=== PATIENT | female | born 1940 | race Caucasian/White ===

== ENCOUNTER 2017-12-04 14:03 | Inpatient (IN) ==
--- NOTE | 2017-12-04 14:23 | Emergency Department Report ---
Medical Clearance HPI - General Chief complaint: Medical Clearance Stated complaint: gen eval Time Seen by Provider: 12/04/17 14:12 Source: patient, family, RN notes reviewed Mode of arrival: ambulatory Limitations: no limitations - History of Present Illness HPI Narrative: Pt presents for medical clearance for admission to [facility]. PT has had recent aggressive behavior with other CT residents. She was recently taken off her medications for Parkinsons 2/2 hallucinations. She has current complaints of a cough and runny nose but does have a history of seasonal pollen allergies. MD complaint: medical clearance requested Onset (ago): day(s) Alleged Intoxication: No Compliant with Home Medications: Yes Home medications: Home Medications Medication Instructions Recorded Confirmed Acetaminophen 650 mg PO Q4H PRN 12/04/17 12/04/17 Cetirizine [Zyrtec] 10 mg PO DAILY 12/04/17 12/04/17 Cyanocobalamin (Vitamin B-12) 2,500 mcg PO DAILY 12/04/17 12/04/17 [Vitamin B12] Fluticasone Nasal [place] [Flonase] 1 spray EA NOSTRIL DAILY 12/04/17 12/04/17 Ibuprofen 200 mg PO Q4H PRN 12/04/17 12/04/17 LORazepam [Ativan] 0.5 mg PO Q8H PRN 12/04/17 12/04/17 Loperamide HCl [Imodium A-D] 2 mg PO PRN PRN 12/04/17 12/04/17 Mag Hydrox/Aluminum Hyd/Simeth 15 ml PO Q4H PRN 12/04/17 12/04/17 [Alum-Mag Hydroxide-Simeth Liq] Milk of Magnesia [Mom] 30 ml PO DAILY PRN 12/04/17 12/04/17 Omeprazole [Prilosec] 20 mg PO DAILY 12/04/17 12/04/17 Promethazine + Cod Liq [Phenergan 5 - 10 ml PO Q4H PRN 12/04/17 12/04/17 + Codeine] Sertraline [Zoloft] 100 mg PO DAILY 12/04/17 12/04/17 guaiFENesin [Guaifenesin] 5 ml PO Q4H PRN 12/04/17 12/04/17 Allergies/Adverse reactions: Allergies Allergy/AdvReac Type Severity Reaction Status Date / Time arformoterol [From Brovana] Allergy Unknown Verified 12/04/17 14:25 venlafaxine [From Effexor] Allergy Unknown Verified 12/04/17 14:25 Review of Systems All systems: reviewed and negative except as stated Eyes: Reports: as per HPI ENT: Reports: as per HPI Respiratory: Reports: as per HPI Neurological: Reports: as per HPI Psychiatric: Reports: as per HPI [facility] Patient Stated Medical History Dementia Yes Parkinson's Disease Yes Other HEENT Yes: WEARS GLASSES Hypertension Yes Chronic Obstructive Pulmonary Yes Disease (COPD) Sleep Apnea Yes Other Respiratory Yes: ALLERGIES Gastroesophageal Reflux Yes Disease Physical Exam - Limitations Limitations: no limitations - General General appearance: alert, in no apparent distress - Normal Exams: Head:: Normocephalic without trauma Eyes:: Pupils are PERRLA w/ EOMI Neck:: Full range of motion, without adenopathy, JVD Chest/Respirations:: Clear all handley, with good airflow Cardiovascular:: Regular rate and rhythm, without murmur or gallop, Pulses 2+ all extremities, capillary refill Abdomen:: Bowel sounds positive, soft, non-tender, non-distended Musculoskeletal:: No tenderness, or deformity noted, good range of motion, all extremities Integumentary:: No rashes Neurological:: Patient is alert, and oriented, cranial nerves, motor/sensory/ cerebellar, exams w/o gross deficits, to observation Psychiatric:: Patient exhibits, appropriate attention, emotion and affect Course Vital Signs Temperature 98.4 F 12/04/17 14:05 Pulse Rate 80 12/04/17 14:05 Respiratory Rate 20 12/04/17 14:05 Blood Pressure 141/62 H 12/04/17 14:05 Pulse Oximetry 96 12/04/17 14:05 Temperature 98.0 F 12/08/17 11:19 Pulse Rate 84 12/08/17 11:19 Respiratory Rate 20 12/08/17 11:19 Blood Pressure 105/81 12/08/17 11:19 Pulse Oximetry 90 12/08/17 11:19 Medical Clearance - MDM Narrative Medical decision making narrative: Labs reviewed. [facility] notified that pt is medically appropriate for admission to their unit. [facility] staff to notify nursing when ready to transfer. - Differential Diagnosis Likely: urinary tract infection (depression, anxiety, dementia) - Lab Data Result diagrams: 12/04/17 14:33 12/04/17 14:33 Lab Results 12/04/17 12/04/17 12/04/17 Range/Units 14:23 14:33 14:33 WBC 10.8 (4.5-11.0) T/MM3 RBC 3.66 L (4.00-5.20) M/MM3 Hgb 11.5 L (12-16) GM/DL Hct 34.9 L (36-46) % MCV 95.4 (80-100) UM3 MCH 31.4 (26-34) UUG MCHC 33.0 (31-37) GM/DL RDW Std Deviation 41.1 (36.9-50.2) FL Plt Count 207 (130-400) T/MM3 MPV 8.8 L (9.4-12.4) UM3 Immature Gran % (Auto) Not performed Neut % (Auto) Not performed Lymph % (Auto) Not performed [place] % (Auto) Not performed Eos % (Auto) Not performed Baso % (Auto) Not performed Neut # (Auto) Not performed Lymph # (Auto) Not performed [place] # (Auto) Not performed Eos # (Auto) Not performed Baso # (Auto) Not performed Abs Immat Gran (auto) Not performed Neutrophils % (Manual) 70.0 H (33-66) % Lymphocytes % (Manual) 18.0 L (23-45) % Monocytes % (Manual) 6.0 (0-9.0) % Eosinophils % (Manual) 6.0 H (0-4) % Neutrophils # (Manual) 7.6 (1.8-7.7) T/MM3 Lymphocytes # (Manual) 1.9 (1-4.8) T/MM3 Monocytes # (Manual) 0.6 (0-0.8) T/MM3 Eosinophils # (Manual) 0.6 H (0-0.5) T/MM3 RBC Morph Comment Normal Turbidity < 20 (0-20) Sodium 141 (134-144) MEQ/L Potassium 4.0 (3.6-5) MEQ/L Chloride 104 (98-107) MEQ/L Carbon Dioxide 26 (22-30) MEQ/L Anion Gap 11 (5-15) MEQ/L BUN 10.0 (7-17) MG/DL Creatinine 0.8 (0.7-1.2) mg/dL GFR Calculation 70 BUN/Creatinine Ratio 13 (6-26) RATIO Glucose 111 H (65-110) MG/DL Calculated Osmolality 271 (261-280) MOSM/KG Calcium 9.1 (8.4-10.2) MG/DL Total Bilirubin 0.60 (0.20-1.30) MG/DL Icterus Index < 2 (0-7) AST 18 (14-36) U/L ALT 12 (1-35) U/L Alkaline Phosphatase 57 (38-126) U/L Total Protein 7.0 (6.3-8.2) g/dL Albumin 4.1 (3.5-5.0) g/dL Globulin 2.9 (2.4-3.6) G/DL Albumin/Globulin Ratio 1.4 (1.1-2.2) RATIO Vitamin B12 > 1000 H (239-931) pg/mL Folate 8.0 (2.76-20) ng/mL TSH (0.47-4.68) MIU/L Specimen Hemolysis < 15 (0-25) Ur Collection Type Urine Color (YELLOW) Urine Clarity Urine pH (5.0-8.0) Ur Specific [place] (1.015-1.025) Urine Protein (NEGATIVE) Urine Glucose (UA) (NEGATIVE) Urine Ketones (NEGATIVE) Urine Occult Blood (NEGATIVE) Urine Nitrate (NEGATIVE) Urine Bilirubin (NEGATIVE) Urine Urobilinogen (NORMAL) EU/DL Ur Leukocyte Esterase (NEGATIVE) Urine RBC (0-3) /HPF Urine WBC (0-5) /HPF Ur Squamous Epith Cells Urine Bacteria (NEGATIVE) Ur Culture Indicated? 12/04/17 12/04/17 Range/Units 14:33 14:48 WBC (4.5-11.0) T/MM3 RBC (4.00-5.20) M/MM3 Hgb (12-16) GM/DL Hct (36-46) % MCV (80-100) UM3 MCH (26-34) UUG MCHC (31-37) GM/DL RDW Std Deviation (36.9-50.2) FL Plt Count (130-400) T/MM3 MPV (9.4-12.4) UM3 Immature Gran % (Auto) Neut % (Auto) Lymph % (Auto) [place] % (Auto) Eos % (Auto) Baso % (Auto) Neut # (Auto) Lymph # (Auto) [place] # (Auto) Eos # (Auto) Baso # (Auto) Abs Immat Gran (auto) Neutrophils % (Manual) (33-66) % Lymphocytes % (Manual) (23-45) % Monocytes % (Manual) (0-9.0) % Eosinophils % (Manual) (0-4) % Neutrophils # (Manual) (1.8-7.7) T/MM3 Lymphocytes # (Manual) (1-4.8) T/MM3 Monocytes # (Manual) (0-0.8) T/MM3 Eosinophils # (Manual) (0-0.5) T/MM3 RBC Morph Comment Turbidity (0-20) Sodium (134-144) MEQ/L Potassium (3.6-5) MEQ/L Chloride (98-107) MEQ/L Carbon Dioxide (22-30) MEQ/L Anion Gap (5-15) MEQ/L BUN (7-17) MG/DL Creatinine (0.7-1.2) mg/dL GFR Calculation BUN/Creatinine Ratio (6-26) RATIO Glucose (65-110) MG/DL Calculated Osmolality (261-280) MOSM/KG Calcium (8.4-10.2) MG/DL Total Bilirubin (0.20-1.30) MG/DL Icterus Index (0-7) AST (14-36) U/L ALT (1-35) U/L Alkaline Phosphatase (38-126) U/L Total Protein (6.3-8.2) g/dL Albumin (3.5-5.0) g/dL Globulin (2.4-3.6) G/DL Albumin/Globulin Ratio (1.1-2.2) RATIO Vitamin B12 (239-931) pg/mL Folate (2.76-20) ng/mL TSH 1.14 (0.47-4.68) MIU/L Specimen Hemolysis (0-25) Ur Collection Type Urine, cath straight Urine Color Yellow (YELLOW) Urine Clarity Clear Urine pH 6.0 (5.0-8.0) Ur Specific [place] 1.010 L (1.015-1.025) Urine Protein Negative (NEGATIVE) Urine Glucose (UA) Negative (NEGATIVE) Urine Ketones Negative (NEGATIVE) Urine Occult Blood Negative (NEGATIVE) Urine Nitrate Negative (NEGATIVE) Urine Bilirubin Negative (NEGATIVE) Urine Urobilinogen 0.2 (NORMAL) EU/DL Ur Leukocyte Esterase 1+ A (NEGATIVE) Urine RBC 0-1 (0-3) /HPF Urine WBC 1-3 (0-5) /HPF Ur Squamous Epith Cells 0-5 Urine Bacteria None seen (NEGATIVE) Ur Culture Indicated? Cult not indicated Disposition Clinical Impression: Dementia Qualifiers: Alzheimer's disease onset: unspecified onset Dementia behavioral disturbance: with behavioral disturbance Seasonal allergic reaction Qualifiers: Allergic rhinitis trigger: unspecified Qualified Code(s): J30.2 - Other seasonal allergic rhinitis Disposition: 65 To [facility] [place] [facility] Condition: Stable Time of Disposition: 15:35 - Seen By: [facility]
--- OUTSIDE RECORDS SUMMARY | 2017-12-04 14:27 | External Medical Summary | Summary of Care ---
:1940 Author Name Cole Sprague M.D. Address Unavailable Unavailable , Care Team Providers Name Role Phone Celestine Givens, Cole Thapa Unavailable Unavailable HumbleCarin chen Unavailable Unavailable Carlos Jackson M.D. Unavailable Unavailable Carlos Jackson Unavailable Unavailable Unavailable Unavailable Unavailable Functional Status Functional Status Health Issues Name Dates Details Functional status health issues are not documented Status: Cognitive Status Health Issues Name Dates Details Cognitive status health issues are not documented Status: Problems Name Dates Details Sleep apnea (780.57, G47.30) Status: Active Vitamin D deficiency (268.9, E55.9) Status: Active Hyperlipidemia (272.4, E78.5) Status: Active Osteopenia (733.90, M85.80) Status: Active History of Memory loss (780.93, R41.3) Status: Resolved Hypercholesterolemia (272.0, E78.00) Status: Active Anxiety (300.00, F41.9) Status: Active Pseudophakia of left eye (V43.1, Z96.1) Status: Active Pseudophakia of right eye (V43.1, Z96.1) Status: Active Allergic rhinitis (477.9, J30.9) Status: Active Chronic obstructive pulmonary disease (496, J44.9) Status: Active Parkinson's disease (332.0, G20) Status: Active Vitamin B 12 deficiency (266.2, E53.8) Status: Active Impaired fasting glucose (790.21, R73.01) Status: Active Depression (311, F32.9) Status: Active Asthma (493.90, J45.909) Status: Active Chronic kidney disease (CKD), stage 3 (moderate) (585.3, N18.3) Status: Active Hypertension (401.9, I10) Status: Active Gastroesophageal reflux disease (530.81, K21.9) Status: Active Essential and other specified forms of tremor (333.1, G25.0) Status: Active Medications Name Dates Details Sertraline HCl - 100 MG Oral Tablet take 1 tablet by mouth every day Quantity: 30 Refills: 0 Carlos Jackson M.D. Start 15-Jul-2016 Active Fluticasone Propionate 50 MCG/ACT Nasal Suspension SQUIRT 2 SPRAYS IN EACH NOSTRIL ONCE DAILY Quantity: 16 Refills: 11 Cole Sprague M.D. Start 12-Sep-2009 Active Voltaren 1 % Transdermal Gel APPLY DIRECTED TO AFFECTED AREA THREE TIMES A DAY NEEDED Quantity: 100 Refills: 0 Carlos Jackson M.D. Start Active Fluticasone Propionate 50 MCG/ACT Nasal Suspension USE 1 TO 2 SPRAYS IN EACH NOSTRIL ONCE DAILY. Refills: 0 Carlos Jackson M.D. Start 16-Jun-2015 Active Cyanocobalamin 1000 MCG/ML Injection Solution INJECT 1 ML INTRAMUSCULARLY ONCE A MONTH Refills: 0 Carlos Jackson M.D. Start 23-Aug-2015 Active Mupirocin 2 % External Ointment APPLY A SMALL AMOUNT 3 TIMES DAILY DIRECTED. Quantity: 1 Refills: 0 Carin Hawk Start 13-Sep-2015 Active 22 GM Tube Cetirizine HCl - 10 MG Oral Tablet Refills: 0 Start 02-Feb-2016 Active Promethazine-Codeine 6.25-10 MG/5ML Oral Syrup TAKE 1 OR 2 TEASPOONFUL(S) BY MOUTH EVERY 4 TO 6 HOURS NEEDED Quantity: 180 Refills: 0 Cole Sprague M.D. Start 02-Oct-2016 Active Cyanocobalamin 2500 MCG Sublingual Tablet Sublingual Take one daily Quantity: 100 Refills: 2 Carlos Jackson M.D. Start 02-Oct-2016 Active Allergies and Adverse Reactions Name Dates Details Brovana NEBU (Allergy) Status: Active Effexor TABS (Allergy) Status: Active Sulfa Drugs (Allergy) Status: Active Past Medical History Name Dates Details History of abdominal pain (V13.89, Z87.898) Status: Resolved History of abscess of skin and subcutaneous tissue (V13.3, Z87.2) Status: Resolved History of acute bronchitis (V12.69, Z87.09) Status: Resolved History of Acute maxillary sinusitis (461.0, J01.00) Status: Resolved History of acute sinusitis (V12.69, Z87.09) Status: Resolved History of adverse drug reaction (V14.9, Z88.9) Status: Resolved History of allergic rhinitis (V12.69, Z87.09) Status: Resolved History of Allergic rhinitis due to animals (477.2, J30.81) Status: Resolved History of Allergic rhinitis due to pollen (477.0, J30.1) Status: Resolved 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, 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 History of benign essential tremor (V12.49, Z86.69) Status: Resolved History of carpal tunnel syndrome (V12.49, Z86.69) Status: Resolved History of Cervical radiculopathy (723.4, M54.12) Status: Resolved History of Chronic Cough Status: Resolved History of Chronic sinusitis (473.9, J32.9) Status: Resolved History of Closed head injury (959.01, S09.90XA) Status: Resolved History of 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, H25.812 ) Status: Resolved History of Combined forms of age-related cataract of right eye (366.19, H25.811 ) Status: Resolved History of Compression fracture of L1 lumbar vertebra (805.4, S32.010A) Status: Resolved History of Compression fracture of T12 vertebra (805.2, M48.54XA) Status: Resolved History of Confusion (298.9, R41.0) Status: Resolved History of Contusion of chest wall, right, initial encounter (922.1, S20.211A) Status: Resolved History of Contusion of forehead, initial encounter (920, S00.83XA) Status: Resolved History of Contusion of left wrist (923.21, S60.212A) Status: Resolved History of Cough (786.2, R05) Status: Resolved History of Dislocation of interphalangeal joint of left ring finger (834.02, S63.275A) Status: Resolved History of Dislocation of left ring finger (834.00, S63.255A) Status: Resolved History of Dysuria (788.1, R30.0) Status: Resolved History of edema (V13.89, Z87.898) Status: Resolved History of Elevated erythrocyte sedimentation rate (790.1, R70.0) Status: Resolved History of Epidermal inclusion cyst (706.2, L72.0) Status: Resolved History of fall (V15.88, Z91.81) Status: Resolved History of fever (V13.89, Z87.898) Status: Resolved History of Flu vaccine need (V04.81, Z23) Status: Resolved History of headache (V13.89, Z87.898) Status: Resolved History of hiatal hernia (V12.79, Z87.19) Status: Resolved History of Incipient senile cataract (366.12, H25.099) Status: Resolved History of Laryngomalacia (748.3, Q31.5) Status: Resolved History of Long-term current use of steroids (V58.65) Status: Resolved History of low back pain (V13.59, Z87.39) Status: Resolved History of Lower respiratory infection (e.g., bronchitis, pneumonia, pneumonitis, pulmonitis) (519.8, J22) Status: Resolved History of Memory loss (780.93, R41.3) Status: Resolved History of osteoarthritis (V13.4, Z87.39) Status: Resolved History of 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, M19.012) Status: Resolved History of Pain of left shoulder joint on movement (719.41, M25.512) Status : Resolved History of Post-concussional syndrome (310.2, F07.81) Status: Resolved History of Preop examination (V72.84, Z01.818) Status: Resolved History of renal insufficiency syndrome (V13.09, Z87.448) Status: Resolved History of Rotator cuff tendinitis, left (726.10, M75.82) Status: Resolved History of Screening for breast cancer (V76.10, Z12.39) Status: Resolved History of Screening for colon cancer (V76.51, Z12.11) Status: Resolved History of Sea sickness (994.6, T75.3XXA) Status: Resolved History of sebaceous cyst (V13.3, Z87.2) Status: Resolved History of Skin infection (686.9, L08.9) Status: Resolved History of Strain of right hip, initial encounter (843.9, S76.011A) Status: Resolved History of Transient disorientation (780.99, R41.0) Status: Resolved History of vomiting (V13.89, Z87.898) Status: Resolved Procedures Procedure Dates Details History of Appendectomy History of Tonsillectomy History of Total Abdominal Hysterectomy With Removal Of Both Ovaries History of Spinal Percutaneous Vertebroplasty, Injection Thoracic History of Extracaps Cataract Extract With Prosthesis Insert Left Eye History of Extracaps Cataract Extract With Prosthesis Insert Right Eye Procedures not documented Immunization Name Dates Details Pneumo (Pneumovax) on: 12-Jul-2008 Influenza on: 10-May-2009 Influenza A (H1N1) Monoval Vac SUSP on: 12-Sep-2009 Influenza A (H1N1) Monoval PF SUSP on: 08-Jun-2010 Influenza A (H1N1) Monoval Vac SUSP on: 19-Jun-2011 Zoster (Zostavax) on: 05-Aug-2011 Influenza on: 23-Jun-2012 Lot #: [id number] Fluzone High-Dose SUSP on: 30-Jun-2013 Lot #: [id number] Fluzone High-Dose SUSP #1 on: 16-Jun-2014 Lot #: [id number] Fluzone High-Dose SUSP on: 09-Jun-2015 Lot #: [id number] Fluzone Quadrivalent 0.5 ML Intramuscular Suspension on: 15-May-2016 Lot #: [id number] Prevnar 13 Intramuscular Suspension on: 02-Oct-2016 Lot #: [id number] Family History Grandmother Name Dates Details Family history of Heart Disease (V17.49) Status: Active Family history of Hypertension (V17.49) Status: Active Mother Name Dates Details Family history of Breast Cancer (V16.3) Status: Active Family history of benign essential tremor (V17.2, Z82.0) Status: Active Brother Name Dates Details Family history of benign essential tremor (V17.2, Z82.0) Status: Active Social History Name Dates Details - Status: Smoking Status Name Dates Details Never smoker Vital Signs Date Test Result Details 02-Oct-2016 13:45 BP Systolic 134 mm[Hg] Status: Comments: Location: ; Position: BP Diastolic 74 mm[Hg] Status: Comments: Location: ; Position: Heart Rate 74 /min Status: Comments: Location: ; Weight 123 lb Status: Physical Findings 96 Status: Comments: O2 Saturation Body Mass Index Calculated 21.11 kg/m2 Status: Body Surface Area Calculated 1.59 m2 Status: 02-Oct-2016 10:40 BP Systolic 144 mm[Hg] Status: Comments: Location: ; Position: BP Diastolic 78 mm[Hg] Status: Comments: Location: ; Position: Heart Rate 72 /min Status: Comments: Location: ; Height 64 in Status: Weight 122 lb Status: Physical Findings 96 Status: Comments: O2 Saturation Body Mass Index Calculated 20.94 kg/m2 Status: Body Surface Area Calculated 1.59 m2 Status: Results Date Description Value Details 25-Sep-2016 10:15 CBC w/ Auto Diff 7150 Comments: Fastin hours WBC 6.6 K/uL Range: 4.5-11.0 RBC 4.22 mil/uL Range: 3.60-5.00 HGB 14.2 g/dL Range: 12.0-16.0 HCT 41.8 % Range: 36.0-48.0 MCV 99.0 fL Range: 80.0-99.0 MCH 33.7 pg (Above high threshold) Range: 27.3-32.5 MCHC 34.0 % Range: 32.0-36.0 RDW 13.4 % Range: 11.6-14.8 PLATELETS 271 K/uL Range: 150-400 MPV 6.1 fL Range: 6.0-11.0 %NEUTRO 50.6 % Range: 37.0-80.0 %LYMPHS 35.2 % Range: 13.0-50.0 %MONO 4.9 % Range: 0.0-12.0 %EOS 5.5 % Range: 0.0-7.0 %BASO 0.8 % Range: 0.0-2.5 %LISE 3.1 % Range: 0.0-5.0 NEUTRO 3.3 K/uL Range: 2.0-6.9 LYMPHS 2.3 K/uL Range: 0.6-3.4 MONOS 0.3 K/uL Range: 0.0-0.9 EOS 0.4 K/uL Range: 0.0-0.7 BASO 0.1 K/uL Range: 0.0-0.2 10:35 THYROID STIM. HORMONE 3602 Comments: Fastin hours THYROID STIM. HORMONE 1.835 uIU/mL Range: 0.550-4.780 Comments: No established reference ranges for infants and children &lt ;2 years of age----- 10:51 Comprehensive Metabolic Panel 1212 Comments: Fastin hours SODIUM 141 mmol/L Range: 133-144 POTASSIUM 4.1 mmol/L Range: 3.5-5.1 CHLORIDE 102 mmol/L Range: 98-110 CARBON DIOXIDE 28.2 mmol/L Range: 23.0-33.0 ANION GAP 11 mmol/L Range: 6-16 BUN 15 mg/dL Range: 7-18 CREATININE, SERUM 1.09 mg/dL (Above high Range: 0.55-1.02 threshold) BUN:CREATININE RATIO 14 EST GFR, 59 ml/min (Below low Range: >60 threshold) EST GFR, NON-AFR [place] 49 ml/min (Below low Range: >60 threshold) Comments: EST GFR is reported in ml/min per 1.73 m2 of body surface area. ----- GLUCOSE 99 mg/dL Range: 70-100 ALK PHOSPHATASE 67 U/L Range: 46-116 TOTAL BILIRUBIN 0.60 mg/dL Range: 0.20-1.00 AST 17 U/L Range: 8-35 ALT 20 U/L Range: 14-59 ALBUMIN 4.0 g/dL Range: 3.4-5.0 TOTAL PROTEIN 7.5 g/dL Range: 6.4-8.2 A/G RATIO 1.1 units Range: 1.0-1.8 CALCIUM 8.7 mg/dL Range: 8.5-10.1 10:51 LIPID PROFILE 1184 Comments: Fastin hours CHOLESTEROL 214 mg/dL (Above high threshold) Range: <200 TRIGLYCERIDES 92 mg/dL Range: 30-200 HDL Cholesterol 80 mg/dL Range: >39 NON HDL CHOLESTEROL 134 CARDIAC RSK FACTOR 2.7 units (Below low threshold) Range: 4.4-5.0 LDL - CALCULATED 116 mg/dL Range: 0-130 Plan of Care Name Dates Details Planned Observations Planned Goals not documented Planned Encounters Appointment; Provider: Carlos Jackson M.D. On 08-Oct-2017 13:45 Appointment; Provider: Schedule Radiology On 10:50 Appointment; Provider: Cole Sprague M.D. On 10:30 Appointment; Provider: Carlos Jackson M.D. On 05-Feb-2017 10:45 Appointment; Provider: Zachary Painter M.D. On 21-Jan-2017 09:45 Appointment; Provider: Kehinde Mcmullen M.D. On 07-Oct-2016 10:00 Interventions Provided Medication ChangesFluticasone Propionate 50 MCG/ACT Nasal Suspension - RenewPromethazine-Codeine 6.25-10 MG/5ML Oral Syrup - Start Instructions Name Dates Details Instructions not documented Encounters Appointment; Zachary Painter M.D. On 24-Jul-2016 Encounter Diagnosis: Problem not documented 09:15 Appointment; Carlos Jackson M.D. On 15-May-2016 Encounter Diagnosis: Problem not documented 09:15 Appointment; Cole Sprague M.D. On Encounter Diagnosis: Problem not documented 11:15 Appointment; Marv Meraz M.D. On Encounter Diagnosis: Problem not documented 09:00 Appointment; Carlos Jackson M.D. On Encounter Diagnosis: Problem not documented 07:00 Appointment; Marv Meraz M.D. On Encounter Diagnosis: Problem not documented 08:15 Appointment; Marv Meraz M.D. On Encounter Diagnosis: Problem not documented 09:30 Appointment; Marv Meraz M.D. On Encounter Diagnosis: Problem not documented 08:45 Appointment; Marv Meraz M.D. On Encounter Diagnosis: Problem not documented 08:15 Appointment; Marv Meraz M.D. On Encounter Diagnosis: Problem not documented 08:45 Appointment; Cole Sprague M.D. On Encounter Diagnosis: Problem not documented 16:00 Appointment; Marv Meraz M.D. On Encounter Diagnosis: Problem not documented 09:00 Appointment; Carlos Jackson M.D. On Encounter Diagnosis: Problem not documented 09:45 Appointment; Marv Meraz M.D. On 02-Feb-2016 Encounter Diagnosis: Problem not documented 08:45 Appointment; Zachary Painter M.D. On 29-Jan-2016 Encounter Diagnosis: Problem not documented 08:15 Appointment; Carlos Jackson M.D. On 29-Jan-2016 Encounter Diagnosis: Problem not documented 08:00 Appointment; Zachary Painter M.D. On 20-Dec-2015 Encounter Diagnosis: Problem not documented 08:15 Appointment; Kehinde Mcmullen M.D. On 18-Dec-2015 Encounter Diagnosis: Problem not documented 10:00 Appointment; Fernandez Malik P.T. On 14-Dec-2015 Encounter Diagnosis: Problem not documented 10:30 Appointment; Carlos Jackson M.D. On 12-Dec-2015 Encounter Diagnosis: Problem not documented 14:15 Appointment; Carlos Jackson M.D. On 28-Nov-2015 Encounter Diagnosis: Problem not documented 09:30 Appointment; Shweta aDniels M.D. On 12-Oct-2015 Encounter Diagnosis: Problem not documented 13:15 Appointment; Cole Sprague M.D. On 04-Oct-2015 Encounter Diagnosis: Problem not documented 13:15 Appointment; Carlos Jackson M.D. On 04-Oct-2015 Encounter Diagnosis: Problem not documented 08:00 Appointment; Carin Hawk On 13-Sep-2015 Encounter Diagnosis: Problem not documented 15:30 Appointment; Carlos Jackson M.D. On 23-Aug-2015 Encounter Diagnosis: Problem not documented 14:15 Appointment; Carin Hawk On 18-Aug-2015 Encounter Diagnosis: Problem not documented 14:45 Appointment; Zachary Painter M.D. On 17-Aug-2015 Encounter Diagnosis: Problem not documented 10:45 Appointment; Zachary Painter M.D. On 17-Jul-2015 Encounter Diagnosis: Problem not documented 14:30 Appointment; Carlos Jackson M.D. On 17-Jul-2015 Encounter Diagnosis: Problem not documented 08:00 Appointment; Carlos Jackson M.D. On 16-Jun-2015 Encounter Diagnosis: Problem not documented 10:15 Appointment; Carlos Jackson M.D. On 09-Jun-2015 Encounter Diagnosis: Problem not documented 07:45 Appointment; Carlos Jackson M.D. On 02-Jun-2015 Encounter Diagnosis: Problem not documented 08:00 Appointment; Carlos Jackson M.D. On 26-May-2015 Encounter Diagnosis: Problem not documented 10:00 Appointment; Torres Cameron D.O. On 19-May-2015 Encounter Diagnosis: Problem not documented 11:45 Appointment; Carlos Jackson M.D. On 01-May-2015 Encounter Diagnosis: Problem not documented 11:00 Appointment; Cole Sprague M.D. On Encounter Diagnosis: Problem not documented 14:00 Appointment; Carlos Jackson M.D. On Encounter Diagnosis: Problem not documented 09:45 Appointment; Cole Sprague M.D. On 19-Jan-2015 Encounter Diagnosis: Problem not documented 09:45 Appointment; Carlos Jackson M.D. On 10-Nov-2014 Encounter Diagnosis: Problem not documented 10:45 Appointment; Cole Sprague M.D. On 06-Oct-2014 Encounter Diagnosis: Problem not documented 11:30
--- OUTSIDE RECORDS SUMMARY | 2017-12-04 14:28 | External Medical Summary | Summary of Care ---
:1940 Author Name Kehinde Mcmullen M.D. Address Unavailable Unavailable , Care Team Providers Name Role Phone Celestine Givens, Cole Thapa Unavailable Unavailable HumbleCarin chen Unavailable Unavailable Kemi Givens, Kehinde Conti Unavailable Unavailable Carlos Jackson M.D. Unavailable Unavailable [...] forms of tremor (333.1, G25.0) Status: Active Osteoarthritis (arthritis due to wear and tear of joints) (715.90, M19.90) Status: Active Osteoarthritis (arthritis due to wear and tear of joints) (715.90, M19.90) Status: Active Medications Name Dates Details Sertraline [...] Hawk Start 13-Sep-2015 Active 22 GM Tube Promethazine-Codeine 6.25-10 MG/5ML Oral Syrup TAKE 1 OR 2 TEASPOONFUL(S) BY MOUTH EVERY 4 TO 6 HOURS NEEDED Quantity: 180 Refills: 0 Cole Sprague M.D. Start 02-Oct-2016 Active Cyanocobalamin 2500 MCG Sublingual Tablet Sublingual Take one daily Quantity: 100 Refills: 2 Carlos Jackson M.D. Start 02-Oct-2016 Active Cetirizine HCl - 10 MG Oral Tablet TAKE 1 TABLET BY MOUTH EVERY DAY DIRECTED Quantity: 90 Refills: 0 Carlos Jackson M.D. Start 11-Oct-2016 Active Allergies and Adverse Reactions Name Dates [...] Cataract Extract With Prosthesis Insert Right Eye BASIC METABOLIC PROFILE 1210 Ordered: 03-Oct-2016 VITAMIN B12 3606 Ordered: 03-Oct-2016 CBC w/ Auto Diff 7150 Ordered: 03-Oct-2016 Comprehensive Metabolic Panel 1212 Ordered: 03-Oct-2016 LIPID PROFILE 1184 Ordered: 03-Oct-2016 THYROID STIM. HORMONE 3602 Ordered: 03-Oct-2016 Immunization Name Dates Details Pneumo (Pneumovax) on: 12-Jul-2008 Influenza on: 10-May-2009 Influenza A (H1N1) Monoval Vac SUSP on: 12-Sep-2009 Influenza A (H1N1) Monoval PF SUSP on: 08-Jun-2010 Influenza A (H1N1) Monoval Vac SUSP on: 19-Jun-2011 Zoster (Zostavax) on: 05-Aug-2011 Influenza on: 23-Jun-2012 Lot #: [id number] Fluzone High-Dose SUSP on: 30-Jun-2013 Lot #: [id number] Fluzone High-Dose SUSP #1 on: 16-Jun-2014 Lot #: [id number] Fluzone High-Dose SUSP on: 09-Jun-2015 Lot #: [id number] Fluzone Quadrivalent 0.5 ML Intramuscular Suspension on: 15-May-2016 Lot #: [id number] Prevnar 13 Intramuscular Suspension on: 02-Oct-2016 Lot #: [id number] Family History Grandmother Name Dates Details Family [...] smoker Vital Signs Date Test Result Details 07-Oct-2016 10:35 BP Systolic 153 mm[Hg] Status: Comments: Location: ; Position: BP Diastolic 79 mm[Hg] Status: Comments: Location: ; Position: Heart Rate 71 /min Status: Comments: Location: ; Height 64 in Status: 02-Oct-2016 13:45 BP Systolic 134 mm[Hg] Status: [...] low Range: >60 threshold) EST GFR, NON-AFR [place]ERBAIJANI 49 ml/min (Below low Range: >60 threshold) [...] Provider: Zachary Painter M.D. On 21-Jan-2017 09:45 Instructions Name Dates Details Instructions not documented Encounters Appointment; Carlos Jackson M.D. On 02-Oct-2016 Encounter Diagnosis: Problem not documented 13:45 Appointment; Cole Sprague M.D. On 02-Oct-2016 Encounter Diagnosis: Problem not documented 10:30 Appointment; Zachary Painter M.D. On 24-Jul-2016 Encounter [...] Diagnosis: Problem not documented 16:00 Appointment; Marv Merza M.D. On Encounter Diagnosis: Problem not documented [...] Diagnosis: Problem not documented 09:30 Appointment; Shweta Daniels M.D. On 12-Oct-2015 Encounter Diagnosis: Problem not documented 13:15 Appointment; Cole Sprague M.D. On 04-Oct-2015 Encounter Diagnosis: Problem not documented 13:15 Appointment; Carlos Jackson M.D. On 04-Oct-2015 Encounter Diagnosis: Problem not documented 08:00 Appointment; Carin Hawk On 13-Sep-2015 Encounter Diagnosis: Problem not documented 15:30 Appointment; Carlos Jackson M.D. On 23-Aug-2015 Encounter Diagnosis: Problem not documented 14:15 Appointment; Kenn Carin On 18-Aug-2015 Encounter Diagnosis: Problem not documented [...] Diagnosis: Problem not documented 10:00 Appointment; Torres Cmaeron D.O. On 19-May-2015 Encounter Diagnosis: Problem not [...]
--- OUTSIDE RECORDS SUMMARY | 2017-12-04 14:28 | External Medical Summary | Summary of Care ---
:1940 Author Name Carlos Jackson M.D. Address [address], [place] [id number] Care Team Providers Name Role Phone Celestine Givens, Cole Thapa Unavailable Unavailable Danie Givens, Robinson Ribera Unavailable Unavailable Alissa Givens, Lily Rodriguez Unavailable Unavailable Renetta Givens, Carlos Anderson Unavailable Unavailable Carlos Jackson Primary Care Provider Unavailable Unavailable Unavailable Unavailable Functional Status Functional Status Health Issues Name Dates Details Functional status health issues are not documented Status: Cognitive Status Health Issues Name Dates Details Cognitive status health issues are not documented Status: Problems Name Dates Details Epidermal inclusion cyst (706.2, L72.0) Status: Active Dysuria (788.1, R30.0) Status: Active Anxiety (300.00, F41.9) Status: Active Hiatal hernia (553.3, K44.9) Status: Active Essential and other specified forms of tremor (333.1, R25.1) Status: Active Sleep apnea (780.57, G47.30) Status: Active Depression (311, F32.9) Status: Active 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, 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 Esophageal reflux (530.81, K21.9) Status: Active Allergic rhinitis due to pollen (477.0, J30.1) Status: Active Allergic rhinitis due to animals (477.2, J30.81) Status: Active Laryngomalacia (748.3, Q34.9) Status: Active Vitamin d deficiency (268.9, E55.9) Status: Active Cervical radiculopathy (723.4, M54.12) Status: Active Incipient senile cataract (366.12, H25.099) Status: Active Hypercholesterolemia (272.0, E78.0) Status: Active Allergic rhinitis due to allergen (477.9, J30.9) Status: Active Abdominal pain (789.00, R10.9) Status: Active Lower back pain (724.2, M54.5) Status: Active Compression fracture of L1 lumbar vertebra (805.4, S32.010A) Status: Active Compression fracture of T12 vertebra (805.2, M48.54XA) Status: Active Impaired fasting glucose (790.21, R73.01) Status: Active Osteopenia (733.90, M85.80) Status: Active Allergic rhinitis (477.9, J30.9) Status: Active Skin abscess (682.9, L02.91) Status: Active Fall (E888.9, W19.XXXA) Status: Active Dislocation of interphalangeal joint of left ring finger (834.02, S63.275A) Status: Active Flu vaccine need (V04.81, Z23) Status: Active Dislocation of left ring finger (834.00, S63.255A) Status: Active Contusion of left wrist (923.21, S60.212A) Status: Active Hypertension (401.9, I10) Status: Active Sebaceous cyst (706.2, L72.3) Status: Active Tremor (781.0, R25.1) Status: Active Hyperlipidemia (272.4, E78.5) Status: Active Chronic kidney disease, stage III (moderate) (585.3, N18.3) Status: Active Osteoarthritis (715.90, M19.90) Status: Active Cough (786.2, R05) Status: Active Asthma (493.90, J45.909) Status: Active Chronic obstructive pulmonary disease (496, J44.9) Status: Active Medications Name Dates Details Pantoprazole Sodium 40 MG Oral Tablet Delayed Release TAKE 1 TABLET BY MOUTH TWICE A DAY 30 MINUTES BEFORE BREAKFAST & DINNER Quantity: 60 Refills: 6 Cole Sprague M.D. Started 04-Feb-2008 ActiveMulti-Vitamin Oral Tablet TAKE 1 TABLET DAILY. Refills: 0 Carlos Jackson M.D. Started ActiveSertraline HCl - 100 MG Oral Tablet take 1 tablet by mouth every day Quantity: 30 Refills: 5 Carlos Jackson M.D. Started ActiveVitamin D 2000 UNIT Oral Tablet TAKE 2 TABLETS DAILY. Refills: 0 Carlos Jackson M.D. Started ActiveTylenol Arthritis Pain 8 Hour 650 MG TBCR Take 2 tablets every am Refills: 0 Carlos Jackson M.D. Started 12-Sep-2009 ActiveFluticasone Propionate 50 MCG/ACT Nasal Suspension 2 SPRAYS EACH NOSTRIL ONCE DAILY Quantity: 1 Refills: 5 Carlos Jackson M.D. Started 12-Sep-2009 [id number] GM Bottle Xopenex 1.25 MG/3ML Inhalation Nebulization Solution USE 1 VIAL Every 4 hours PRN cough, wheeze, short of breath Quantity: 2 Refills: 1 Lily Maxwell M.D. Started Active3 ML Plas Cont (24 Plas Conts) Cetirizine HCl - 10 MG Oral Tablet Refills: 0 Robinson Helton M.D. Started 23-Jun-2012 ActiveFlovent HFA 220 MCG/ACT Inhalation Aerosol USE 1 PUFF TWICE DAILY.RINSE MOUTH AFTER USE. Quantity: 1 Refills: 1 Cole Sprague M.D. Started 01-Feb-2014 [id number] GM Inhaler Voltaren 1 % Transdermal Gel APPLY DIRECTED TO AFFECTED AREA TID PRN Quantity: 1 Refills: 3 Carlos Jackson M.D. Started [id number] GM Tube Ibandronate Sodium 150 MG Oral Tablet TAKE 1 TABLET ONCE MONTHLY WITH 8 TO 10 OUNCES OF WATER. STAY UPRIGHT AND DO NOT EAT OR DRINK FOR 1HOUR. Quantity: 3 Refills: 3 Carlos Jackson M.D. Started ActiveBrovana 15 MCG/2ML Inhalation Nebulization Solution INHALE THE CONTENTS OF 1 VIAL TWO TIMES DAILY IN THE MORNING AND EVENING VIA STANDARD JET NEBULIZER DIRECTED. Quantity: 120 Refills: 0 Cole Sprague M.D. Started 27-Oct-2014 Active Allergies and Adverse Reactions Name Dates Details Effexor TABS Status: Active Sulfa Drugs Status: Active Past Medical History Name Dates Details History of acute bronchitis (V12.69, Z87.09) Status: Resolved History of Acute maxillary sinusitis (461.0, J01.00) Status: Resolved History of carpal tunnel syndrome (V12.49, Z86.69) Status: Resolved History of Chronic Cough Status: Resolved History of Chronic sinusitis (473.9, J32.9) Status: Resolved History of edema (V13.89, Z87.898) Status: Resolved History of Elevated erythrocyte sedimentation rate (790.1, R70.0) Status: Resolved History of fever (V13.89, Z87.898) Status: Resolved History of Long-term current use of steroids (V58.65) Status: Resolved History of renal insufficiency syndrome (V13.09, Z87.448) Status: Resolved History of vomiting (V13.89, Z87.898) Status: Resolved Procedures Procedure Dates Details History of Appendectomy History of Tonsillectomy History of Total Abdominal Hysterectomy With Removal Of Both Ovaries History of Spinal Percutaneous Vertebroplasty, Injection Thoracic BASIC METABOLIC PROFILE 1210 Ordered:03-Nov-2014 Immunization Name Dates Details Pneumo (Pneumovax) Administered on:12-Jul-2008 Influenza Administered on:10-May-2009 Influenza A (H1N1) Monoval Vac Intramuscular Suspension Administered on:2009 Influenza A (H1N1) Monoval PF Intramuscular Suspension Administered on:2009 Influenza A (H1N1) Monoval Vac Intramuscular Suspension Administered on: Zoster (Zostavax) Administered on:05-Aug-2011 Influenza Administered on:23-Jun-2012 Lot #: [id number] Fluzone High-Dose Intramuscular Suspension Administered on:30-Jun-2013 Lot #: [id number] Fluzone High-Dose Intramuscular Suspension #1 Administered on:16-Jun-2014 Lot #: [id number] Family History Grandmother Name Dates Details Family history of Heart Disease (V17.49) Status: Active Family history of Hypertension (V17.49) Status: Active Mother Name Dates Details Family history of Breast Cancer (V16.3) Status: Active Social History Name Dates Details Smoking StatusNever smoker Vital Signs Date Test Result Details No Known Vitals to report Results Date Description Value Details 20-Oct-2014 17:17 MAMMOGRAM-SCREENING Comments: Exam Date: 11: 24Dictation Date: 17:17 XM SCREENING (Better) Plan of Care Planned Observations Name Dates Details Planned Goals not documented Goal Planned Encounters Appointment; Provider: Cole Sprague On 14:00 Appointment; Provider: Carlos Jackson On 10-Nov-2014 10:45 Appointment; Provider: Zenaida Maurice On 16-Oct-2008 12:15 Appointment; Provider: Zenaida Maurice On 15-Oct-2008 12:45 Appointment; Provider: Zenaida Maurice On 09-Sep-2008 09:45 Appointment; Provider: Zenaida Maurice On 07-Sep-2008 15:45 Appointment; Provider: Zenaida Maurice On 06-Sep-2008 14:30 Appointment; Provider: Cole Sprague On 05-Sep-2008 13:15 Appointment; Provider: Zenaida Maurice On 05-Sep-2008 07:15 Appointment; Provider: Carlos Jackson On 06-Jul-2008 08:30 Appointment; Provider: Pamela Lopez On 17-May-2008 15:00 Appointment; Provider: Cole Sprague On 12-Apr-2008 14:00 Instructions Instructions not documented Encounters Appointment; Cole Sprague On 06-Oct-2014 Encounter Diagnosis: Problem not documented 11:30 Appointment; Carlos Jackson On 06-Jul-2014 Encounter Diagnosis: Problem not documented 13:30 Appointment; Carlos Jackson On 20-Jun-2014 Encounter Diagnosis: Problem not documented 14:00 Appointment; Nicola Rosado On 16-Jun-2014 Encounter Diagnosis: Problem not documented 15:30 Appointment; Devang Shell On 16-Jun-2014 Encounter Diagnosis: Problem not documented 14:00 Appointment; Deacon Ng On 26-May-2014 Encounter Diagnosis: Problem not documented 08:45 Appointment; Cole Sprague On Encounter Diagnosis: Problem not documented 11:30 Appointment; Carlos Jackson On Encounter Diagnosis: Problem not documented 09:15 Appointment; Carlos Jackson On 15-Dec-2013 Encounter Diagnosis: Problem not documented 10:45 Appointment; Carlos Jackson On 11-Nov-2013 Encounter Diagnosis: Problem not documented 10:45 Appointment; Carlos Jackson On 25-Oct-2013 Encounter Diagnosis: Problem not documented 13:45 Appointment; Kyle Hoang On 18-Oct-2013 Encounter Diagnosis: Problem not documented 13:15 Appointment; Cole Sprague On 07-Oct-2013 Encounter Diagnosis: Problem not documented 15:00 Appointment; Carlos Jackson On 30-Jun-2013 Encounter Diagnosis: Problem not documented 10:30 Appointment; Cole Sprague On Encounter Diagnosis: Problem not documented 16:00 Appointment; Carlos Jackson On Encounter Diagnosis: Problem not documented 11:00 Appointment; Cole Sprague On 03-Dec-2012 Encounter Diagnosis: Problem not documented 14:00 Appointment; Carlos Jackson On 10-Nov-2012 Encounter Diagnosis: Problem not documented 15:30
--- OUTSIDE RECORDS SUMMARY | 2017-12-04 14:28 | External Medical Summary | Summary of Care ---
:1940 Author Name Carlos Jackson M.D. Address [address], [place] [id number] Care Team Providers Name Role Phone Celestine [...] Active Hyperlipidemia (272.4, E78.5) Status: Active Chronic obstructive pulmonary disease (496, J44.9) Status: Active Chronic kidney disease, stage III (moderate) (585.3, N18.3) Status: Active Asthma (493.90, J45.909) Status: Active Osteoarthritis (715.90, M19.90) Status: Active Medications Name Dates Details Multi-Vitamin Oral Tablet TAKE 1 TABLET DAILY. Refills: 0 Carlos Jackson M.D. Started ActiveSertraline HCl - 100 MG Oral Tablet take 1 tablet by mouth every day Quantity: 30 Refills: 5 Carlos Jackson M.D. Started ActiveVitamin D 2000 UNIT Oral Tablet TAKE 2 TABLETS DAILY. Refills: 0 Carlos Jackson M.D. Started ActivePantoprazole Sodium 40 MG Oral Tablet Delayed Release TAKE 1 TABLET BY MOUTH TWICE A DAY 30 MINUTES BEFORE BREAKFAST & DINNER Quantity: 60 Refills: 6 Cole Sprague M.D. Started 04-Feb-2008 ActiveTylenol Arthritis Pain 8 Hour 650 MG TBCR Take 2 tablets every am Refills: 0 Carlos Jackson M.D. Started 12-Sep-2009 ActiveFluticasone Propionate 50 MCG/ACT Nasal Suspension 2 SPRAYS EACH NOSTRIL ONCE DAILY Quantity: 1 Refills: 5 Carlos Jackson M.D. Started 12-Sep-2009 [id number] GM Bottle Xopenex 1.25 MG/3ML NEBU USE 1 VIAL Every 4 hours PRN [...] Refills: 1 Cole Sprague M.D. Started 01-Feb-2014 [id number] GM Inhaler Voltaren 1 % Transdermal Gel APPLY DIRECTED TO AFFECTED AREA TID PRN Quantity: 1 Refills: 3 Carlos Jackson M.D. Started [id number] GM Tube Ibandronate Sodium 150 MG Oral Tablet TAKE 1 TABLET ONCE MONTHLY WITH 8 TO 10 OUNCES OF WATER. STAY UPRIGHT AND DO NOT EAT OR DRINK FOR 1HOUR. Quantity: 3 Refills: 3 Carlos Jackson M.D. Started ActiveAmoxicillin-Pot Clavulanate 875-125 MG Oral Tablet Take 1 tablet twice daily Quantity: 20 Refills: 0 Carlos Jackson M.D. Started 06-Jul-2014 Active Allergies and Adverse Reactions Name Dates [...] History of Spinal Percutaneous Vertebroplasty, Injection Thoracic Procedures not documented Immunization Name Dates Details Pneumo (Pneumovax) Administered on:12-Jul-2008 Influenza Administered on:10-May-2009 Influenza A (H1N1) Monoval Vac Intramuscular Suspension Administered on:2009 Influenza A (H1N1) Monoval PF Intramuscular Suspension Administered on:2009 Influenza A (H1N1) Monoval Vac Intramuscular Suspension Administered on: Zoster (Zostavax) Administered on:05-Aug-2011 Influenza Administered on:23-Jun-2012 Lot #: [id number] Fluzone High-Dose Intramuscular Suspension Administered on:30-Jun-2013 Lot #: [id number] Fluzone High-Dose Intramuscular Suspension #1 Administered on:16-Jun-2014 Lot #: [id number] Family History Grandmother Name Dates Details Family history of Heart Disease (V17.49) Status: Active Family history of Hypertension (V17.49) Status: Active Mother Name Dates Details Family history of Breast Cancer (V16.3) Status: Active Social History Name Dates Details Smoking StatusNever smoker Vital Signs Date Test Result Details No Known Vitals to report Results Date Description Value Details Results not documented Plan of Care Planned Observations Name Dates Details Planned Goals not documented Goal Planned Encounters Appointment; Provider: Carlos Jackson On 10-Nov-2014 10:45 Appointment; Provider: Cole Sprague On 06-Oct-2014 11:30 Appointment; Provider: Zenaida Maurice On 16-Oct-2008 12:15 [...] 14:00 Instructions Instructions not documented Encounters Appointment; Carlos Jackson On 06-Jul-2014 Encounter Diagnosis: Problem not documented 13:30 Appointment; Carlos Jackson On 20-Jun-2014 Encounter Diagnosis: Problem not documented 14:00 Appointment; Nicola Rosado On 16-Jun-2014 Encounter Diagnosis: Problem not documented 15:30 Appointment; Devang Shell On 16-Jun-2014 Encounter Diagnosis: Problem not documented 14:00 Appointment; Deacno Ng On 26-May-2014 Encounter Diagnosis: Problem not [...]
--- OUTSIDE RECORDS SUMMARY | 2017-12-04 14:28 | External Medical Summary | Summary of Care ---
:1940 Author Name Carlos Jackson M.D. Address [address], [place] [id number] Care Team Providers Name Role Phone Cole Sprague M.D. Unavailable Unavailable Carin Hawk Unavailable Unavailable Carlos Jackson M.D. Unavailable Unavailable Carlos Jackson Primary Care Provider Unavailable Unavailable Unavailable Unavailable Functional Status Functional Status Health Issues Name Dates Details Functional status health issues are not documented Status: Cognitive Status Health Issues Name Dates Details Cognitive status health issues are not documented Status: Problems Name Dates Details Sleep apnea (780.57, G47.30) Status: Active Esophageal reflux (530.81, K21.9) Status: Active Laryngomalacia (748.3, Q31.5) Status: Active Vitamin d deficiency (268.9, E55.9) Status: Active Hypercholesterolemia (272.0, E78.0) Status: Active Allergic rhinitis (477.9, J30.9) Status: Active Osteoarthritis (715.90, M19.90) Status: Active Hyperlipidemia (272.4, E78.5) Status: Active Osteopenia (733.90, M85.80) Status: Active Anxiety (300.00, F41.9) Status: Active Depression (311, F32.9) Status: Active History of Memory loss (780.93, R41.3) Status: Resolved Vitamin B 12 deficiency (266.2, E53.8) Status: Active Hypertension (401.9, I10) Status: Active Impaired fasting glucose (790.21, R73.01) Status: Active Chronic kidney disease, stage III (moderate) (585.3, N18.3) Status: Active Asthma (493.90, J45.909) Status: Active Chronic obstructive pulmonary disease (496, J44.9) Status: Active Pain of left shoulder joint on movement (719.41, M25.512) Status: Active Essential and other specified forms of tremor (333.1, G25.0) Status: Active Medications Name Dates Details Pantoprazole Sodium 40 MG Oral Tablet Delayed Release TAKE 1 TABLET BY MOUTH TWICE A DAY 30 MINUTES BEFORE BREAKFAST & DINNER Quantity: 60 Refills: 6 Cole Sprague M.D. Started 04-Feb-2008 ActiveSertraline HCl - 100 MG Oral Tablet take 1 tablet by mouth every day Quantity: 30 Refills: 5 Carlos Jackson M.D. Started ActiveVoltaren 1 % Transdermal Gel APPLY DIRECTED TO AFFECTED AREA THREE TIMES A DAY NEEDED Quantity: 100 Refills: 0 Carlos Jackson M.D. Started ActiveFluticasone Propionate 50 MCG/ACT Nasal Suspension USE 1 TO 2 SPRAYS IN EACH NOSTRIL ONCE DAILY. Refills: 0 Carlos Jackson M.D. Started 16-Jun-2015 ActiveCyanocobalamin 1000 MCG/ML Injection Solution INJECT 1 ML INTRAMUSCULARLY ONCE A MONTH Refills: 0 Carlos Jackson M.D. Started 23-Aug-2015 ActiveMupirocin 2 % External Ointment APPLY A SMALL AMOUNT 3 TIMES DAILY DIRECTED. Quantity: 1 Refills: 0 Carin Hawk Started 13-Sep-2015 [id number] GM Tube TraMADol HCl - 50 MG Oral Tablet TAKE 1 TABLET 4 TIMES DAILY NEEDED FOR PAIN. Quantity: 20 Refills: 0 Carlos Jackson M.D. Started 28-Nov-2015 ActivePromethazine-Codeine 6.25-10 MG/5ML Oral Syrup TAKE ONE TEASPOONFUL BY MOUTH EVERY FOUR HOURS NEEDED FOR COUGH Quantity: 120 Refills: 0 Carlos Jackson M.D. Started 18-Aug-2015 Active Allergies and Adverse Reactions Name Dates Details Sonia CARO Status: Active Effexor TABS Status: Active Sulfa Drugs Status: Active Past Medical History Name Dates Details History of abdominal pain (V13.89, Z87.898) Status: Resolved History of abscess of skin and subcutaneous tissue (V13.3, Z87.2) Status: Resolved History of acute bronchitis (V12.69, Z87.09) Status: Resolved History of Acute maxillary sinusitis (461.0, J01.00) Status: Resolved History of acute sinusitis (V12.69, Z87.09) Status: Resolved History of allergic rhinitis (V12.69, [...] injury (959.01, S09.90XA) Status: Resolved History of Compression fracture of [...] cataract (366.12, H25.099) Status: Resolved History of Long-term current use of steroids (V58.65) Status: Resolved History of low back pain (V13.59, Z87.39) Status: Resolved History of Lower respiratory infection (e.g., bronchitis, pneumonia, pneumonitis, pulmonitis) (519.8, J22) Status: Resolved History of Memory loss (780.93, R41.3) Status: Resolved History of Post-concussional syndrome (310.2, F07.81) Status: Resolved History of renal insufficiency syndrome (V13.09, Z87.448) Status: Resolved History of Screening for colon [...] History of Spinal Percutaneous Vertebroplasty, Injection Thoracic FOLATE 3608 Ordered:07-Dec-2015 Immunization Name Dates Details Pneumo (Pneumovax) Administered on:12-Jul-2008 Influenza Administered on:10-May-2009 Influenza A (H1N1) Monoval Vac Intramuscular Suspension Administered on:2009 Influenza A (H1N1) Monoval PF Intramuscular Suspension Administered on:2009 Influenza A (H1N1) Monoval Vac Intramuscular Suspension Administered on: Zoster (Zostavax) Administered on:05-Aug-2011 Influenza Administered on:23-Jun-2012 Lot #: [id number] Fluzone High-Dose Intramuscular Suspension Administered on:30-Jun-2013 Lot #: [id number] Fluzone High-Dose Intramuscular Suspension #1 Administered on:16-Jun-2014 Lot #: [id number] Fluzone High-Dose Intramuscular Suspension Administered on:09-Jun-2015 Lot #: [id number] Family History Grandmother Name Dates Details Family [...] smoker Vital Signs Date Test Result Details 12-Dec-2015 14:24 BP Systolic 128 mm[Hg] Status: BP Diastolic 70 mm[Hg] Status: Heart Rate 72 /min Status: Weight 128 lb Status: Body Mass Index Calculated 21.97 kg/m2 Status: Body Surface Area Calculated 1.62 m2 Status: 28-Nov-2015 09:39 BP Systolic 136 mm[Hg] Status: BP Diastolic 76 mm[Hg] Status: Heart Rate 75 /min Status: Weight 126 lb Status: Body Mass Index Calculated 21.63 kg/m2 Status: Body Surface Area Calculated 1.61 m2 Status: Results Date Description Value Details 28-Nov-2015 10:45 XRay SHOULDER-Left Comments: Exam Date: 11/28/2015 10: 23Dictation Date: 11/28/2015 10:45 X SHOULDER COMP (MIN 2V) LT (Better) 07-Dec-2015 10:38 MRI SHOULDER LEFT Comments: Exam Date: 12/06/2015 14: 01Dictation Date: 12/07/2015 10:38 XMR EXT SHOULDER LEFT (Better) Plan of Care Planned Observations Name Dates Details Planned Goals not documented Goal Planned Encounters Appointment; Provider: Cole Sprague On 11:30 Appointment; Provider: Zachary Painter On 20-Dec-2015 08:15 Appointment; Provider: Kehinde Mcmullen On 18-Dec-2015 10:00 Appointment; Provider: Fernandez Malik On 14-Dec-2015 10:30 Appointment; Provider: Schedule Radiology On 06-Dec-2015 15:00 Appointment; Provider: Schedule Radiology On 05-Jun-2015 11:00 Appointment; Provider: Schedule Radiology On 26-May-2015 14:00 Appointment; Provider: Zenaida Maurice On 16-Oct-2008 12:15 [...] not documented Encounters Appointment; Carlos Jackson On 12-Dec-2015 Encounter Diagnosis: Problem not documented 14:15 Appointment; Carlos Jackson On 28-Nov-2015 Encounter Diagnosis: Problem not documented 09:30 Appointment; Shweta Daniels On 12-Oct-2015 Encounter Diagnosis: Problem not documented 13:15 Appointment; Cole Sprague On 04-Oct-2015 Encounter Diagnosis: Problem not documented 13:15 Appointment; Carlos Jackson On 04-Oct-2015 Encounter Diagnosis: Problem not documented 08:00 Appointment; Carin Hawk On 13-Sep-2015 Encounter Diagnosis: Problem not documented 15:30 Appointment; Carlos Jackson On 23-Aug-2015 Encounter Diagnosis: Problem not documented 14:15 Appointment; Carin Hawk On 18-Aug-2015 Encounter Diagnosis: Problem not documented 14:45 Appointment; Zachary Painter On 17-Aug-2015 Encounter Diagnosis: Problem not documented 10:45 Appointment; Zachary Painter On 17-Jul-2015 Encounter Diagnosis: Problem not documented 14:30 Appointment; Carlos Jackson On 17-Jul-2015 Encounter Diagnosis: Problem not documented 08:00 Appointment; Carlos Jackson On 16-Jun-2015 Encounter Diagnosis: Problem not documented 10:15 Appointment; Carlos Jackson On 09-Jun-2015 Encounter Diagnosis: Problem not documented 07:45 Appointment; Carlos Jackson On 02-Jun-2015 Encounter Diagnosis: Problem not documented 08:00 Appointment; Carlos Jackson On 26-May-2015 Encounter Diagnosis: Problem not documented 10:00 Appointment; Torres Cameron On 19-May-2015 Encounter Diagnosis: Problem not documented 11:45 Appointment; Carlos Jackson On 01-May-2015 Encounter Diagnosis: Problem not documented 11:00 Appointment; Cole Sprague On Encounter Diagnosis: Problem not documented 14:00 Appointment; Carlos Jackson On Encounter Diagnosis: Problem not documented 09:45 Appointment; Cole Sprague On 19-Jan-2015 Encounter Diagnosis: Problem not documented 09:45 Appointment; Carlos Jackson On 10-Nov-2014 Encounter Diagnosis: Problem not documented 10:45 Appointment; Cole Sprague On 06-Oct-2014 Encounter Diagnosis: [...]
--- OUTSIDE RECORDS SUMMARY | 2017-12-04 14:28 | External Medical Summary | Summary of Care ---
:1940 Author Name Cole Sprague M.D. Address [address] [place], [place] [id number] Care Team Providers Name Role Phone Cole [...] Status: Active Depression (311, F32.9) Status: Active Transient disorientation (780.99, R41.0) Status: Active History of Memory loss (780.93, R41.3) Status: Resolved Vitamin B 12 deficiency (266.2, E53.8) Status: Active Post-concussional syndrome (310.2, F07.81) Status: Active Hypertension (401.9, I10) Status: Active Impaired fasting glucose (790.21, R73.01) Status: Active Chronic kidney disease, stage III (moderate) (585.3, N18.3) Status: Active Essential and other specified forms of tremor (333.1, G25.0) Status: Active Skin infection (686.9, L08.9) Status: Active Asthma (493.90, J45.909) Status: Active [...] 1 Refills: 0 Carin Hawk Started 13-Sep-2015 [id number] GM Tube Allergies and Adverse Reactions Name Dates Details [...] loss (780.93, R41.3) Status: Resolved History of renal insufficiency syndrome (V13.09, Z87.448) Status: Resolved History of Screening for colon cancer (V76.51, Z12.11) Status: Resolved History of Sea sickness (994.6, T75.3XXA) Status: Resolved History of sebaceous cyst (V13.3, Z87.2) Status: Resolved History of Strain of right hip, initial encounter (843.9, S76.011A) Status: Resolved History of vomiting (V13.89, Z87.898) Status: Resolved Procedures Procedure Dates Details History of Appendectomy History of Tonsillectomy History of Total Abdominal Hysterectomy With Removal Of Both Ovaries History of Spinal Percutaneous Vertebroplasty, Injection Thoracic BASIC METABOLIC PROFILE 1210 Ordered:25-Aug-2015 VITAMIN B12 3606 Ordered:25-Aug-2015 Immunization Name Dates Details Pneumo (Pneumovax) Administered on:12-Jul-2008 Influenza Administered on:10-May-2009 Influenza A (H1N1) Monoval Vac Intramuscular Suspension Administered on:2009 Influenza A (H1N1) Monoval PF Intramuscular Suspension Administered on:2009 Influenza A (H1N1) Monoval Vac Intramuscular Suspension Administered on: Zoster (Zostavax) Administered on:05-Aug-2011 Influenza Administered on:23-Jun-2012 Lot #: [id number] Fluzone High-Dose Intramuscular Suspension Administered on:30-Jun-2013 Lot #: [id number] Fluzone High-Dose Intramuscular Suspension #1 Administered on:16-Jun-2014 Lot #: [id number] Fluzone High-Dose Intramuscular Suspension Administered on:09-Jun-2015 Lot #: [id number] Family History Grandmother Name Dates Details Family [...] smoker Vital Signs Date Test Result Details 04-Oct-2015 13:26 BP Systolic 128 mm[Hg] Status: BP Diastolic 76 mm[Hg] Status: Heart Rate 79 /min Status: Height 64 in Status: Weight 128 lb Status: O2 SAT 97 % Status: Body Mass Index Calculated 21.97 kg/m2 Status: Body Surface Area Calculated 1.62 m2 Status: 13-Sep-2015 15:33 BP Systolic 108 mm[Hg] Status: BP Diastolic 70 mm[Hg] Status: Temperature 97.2 f Status: Heart Rate 64 /min Status: Weight 127 lb Status: O2 SAT 98 % Status: Body Mass Index Calculated 21.8 kg/m2 Status: Body Surface Area Calculated 1.61 m2 Status: Results Date Description Value Details Results not documented Plan of Care Planned Observations Name Dates Details Planned Goals not documented Goal Planned Encounters Appointment; Provider: Cole Sprague On 11:30 Appointment; Provider: Carlos Jackson On 26-Dec-2015 08:45 Appointment; Provider: Zachary Painter On 20-Dec-2015 08:15 Appointment; Provider: Schedule Radiology On 05-Jun-2015 11:00 [...] not documented Encounters Appointment; Cole Sprague On 04-Oct-2015 Encounter Diagnosis: [...] Diagnosis: Problem not documented 07:45 Appointment; Carlos Jackosn On 02-Jun-2015 Encounter Diagnosis: Problem not documented [...]
--- OUTSIDE RECORDS SUMMARY | 2017-12-04 14:29 | External Medical Summary | Summary of Care ---
:1940 Author Name Carlos Jackson M.D. 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, M19.012) Status: Active Parkinson's disease (332.0, G20) Status: Active Vitamin B 12 deficiency (266.2, E53.8) Status: Active Preop examination (V72.84, Z01.818) Status: Active 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, 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) Status : Active Combined forms of age-related cataract of right eye (366.19, H25.811) Status : Active Hypertension (401.9, I10) Status: Active Hypercholesterolemia (272.0, E78.0) Status: Active Chronic kidney disease, stage III (moderate) (585.3, N18.3) Status: Active Asthma (493.90, J45.909) Status: Active Chronic obstructive pulmonary disease (496, J44.9) Status: Active Essential and other specified forms of tremor (333.1, G25.0) Status: Active Impaired fasting glucose (790.21, R73.01) Status: Active Anxiety (300.00, F41.9) Status: Active Medications Name Dates Details Pantoprazole [...] 1 Refills: 0 Carin Hawk Started 13-Sep-2015 [id number] GM Tube Cetirizine HCl - 10 MG Oral Tablet Refills: 0 Started 02-Feb-2016 Active Allergies and Adverse Reactions Name Dates Details Sonia MCCABEDre Status: Active Effexor TABS Status: Active Sulfa [...] cyst (706.2, L72.0) Status: Resolved History of esophageal reflux (V12.79, Z87.19) Status: Resolved History of fall (V15.88, Z91.81) [...] osteoarthritis (V13.4, Z87.39) Status: Resolved History of Pain of left shoulder joint on movement (719.41, M25.512) Status : Resolved History of Post-concussional syndrome (310.2, F07.81) Status: Resolved History of renal insufficiency syndrome (V13.09, Z87.448) Status: Resolved History of Rotator cuff tendinitis, left (726.10, M75.82) Status: Resolved History of Screening for colon [...] Vertebroplasty, Injection Thoracic BASIC METABOLIC PROFILE 1210 Ordered: Immunization Name Dates Details Pneumo (Pneumovax) Administered on:12-Jul-2008 Influenza Administered on:10-May-2009 Influenza A (H1N1) Monoval Vac Intramuscular Suspension Administered on:2009 Influenza A (H1N1) Monoval PF Intramuscular Suspension Administered on:2009 Influenza A (H1N1) Monoval Vac Intramuscular Suspension Administered on: Zoster (Zostavax) Administered on:05-Aug-2011 Influenza Administered on:23-Jun-2012 Lot #: [id number] Fluzone High-Dose Intramuscular Suspension Administered on:30-Jun-2013 Lot #: [id number] Fluzone High-Dose Intramuscular Suspension #1 Administered on:16-Jun-2014 Lot #: [id number] Fluzone High-Dose Intramuscular Suspension Administered on:09-Jun-2015 Lot #: [id number] Family History Grandmother Name Dates Details Family [...] smoker Vital Signs Date Test Result Details 10:27 BP Systolic 130 mm[Hg] Status: BP Diastolic 80 mm[Hg] Status: Heart Rate 75 /min Status: Weight 125 lb Status: O2 SAT 97 % Status: Body Mass Index Calculated 21.46 kg/m2 Status: Body Surface Area Calculated 1.6 m2 Status: 29-Jan-2016 08:21 BP Systolic 128 mm[Hg] Status: BP Diastolic 64 mm[Hg] Status: Heart Rate 67 /min Status: Weight 127.0 lb Status: O2 SAT 98 % Status: Body Mass Index Calculated 21.8 kg/m2 Status: Body Surface Area Calculated 1.61 m2 Status: Results Date Description Value Details 09:07 CBC w/ Auto Diff 7150 Comments: Fastin hours WBC 5.5 K/uL (Better) Range: 4.5-11.0 RBC 4.22 mil/uL (Better) Range: 3.60-5.00 HGB 13.8 g/dL (Better) Range: 12.0-16.0 HCT 41.9 % (Better) Range: 36.0-48.0 MCV 99.4 fL (Above high Range: 80.0-99.0 threshold) MCH 32.7 pg (Above high Range: 27.3-32.5 threshold) MCHC 32.9 % (Better) Range: 32.0-36.0 RDW 13.3 % (Better) Range: 11.6-14.8 PLATELETS 261 K/uL (Better) Range: 150-400 MPV 7.5 fL (Better) Range: 6.0-11.0 %NEUTRO 48.9 % (Better) Range: 37.0-80.0 %LYMPHS 35.5 % (Better) Range: 13.0-50.0 %MONO 6.0 % (Better) Range: 0.0-12.0 %EOS 5.0 % (Better) Range: 0.0-7.0 %BASO 0.8 % (Better) Range: 0.0-2.5 %LISE 3.7 % (Better) Range: 0.0-5.0 NEUTRO 2.7 K/uL (Better) Range: 2.0-6.9 LYMPHS 2.0 K/uL (Better) Range: 0.6-3.4 MONOS 0.3 K/uL (Better) Range: 0.0-0.9 EOS 0.3 K/uL (Better) Range: 0.0-0.7 BASO 0.0 K/uL (Better) Range: 0.0-0.2 09:16 BASIC METABOLIC PROFILE Comments: Fastin hours 1210 SODIUM 144 mmol/L (Better) Range: 133-144 POTASSIUM 3.9 mmol/L (Better) Range: 3.5-5.1 CHLORIDE 107 mmol/L (Better) Range: 98-110 CARBON DIOXIDE 26.8 mmol/L (Better) Range: 23.0-33.0 ANION GAP 10 mmol/L (Better) Range: 6-16 BUN 12 mg/dL (Better) Range: 7-18 CREATININE, SERUM 1.09 mg/dL (Above Range: 0.55-1.02 high threshold) Comments: Please note new reference ranges effective 01/28.----- EST GFR, 59 ml/min (Below low Range: >60 GUINEAN threshold) EST GFR, NON-AFR 49 ml/min (Below low Range: >60 GUINEAN threshold) Comments: EST GFR is reported in ml/min per 1.73 m2 of body surface area. For -S[place], please multiple result by 1.2.----- BUN:CREATININE RATIO 11 (Better) GLUCOSE 101 mg/dL (Above Range: 70-100 high threshold) CALCIUM 8.7 mg/dL (Better) Range: 8.5-10.1 09:41 Urinalysis, reflex to Comments: Fastin hours Micro and Culture ([facility]) 8016 pH 6.0 (Better) Range: 5.0-7.5 SP GRAVITY 1.015 (Better) Range: 1.010-1.030 APPEARANCE Clear (Better) Range: Clear COLOR Yellow (Better) Range: Straw-Yellow PROTEIN Negative mg/dL Range: Negative-Trace (Better) GLUCOSE Negative mg/dL Range: Negative (Better) KETONES Negative mg/dL Range: Negative (Better) BILIRUBIN Negative (Better) Range: Negative BLOOD Negative (Better) Range: Negative UROBIL 0.2 EU/dL (Better) Range: 0.2-1.0 NITRITE Negative (Better) Range: Negative LEUKOCYTES 2+ (Abnormal) Range: Negative 09:59 VITAMIN B12 3606 VITAMIN B12 641 pg/mL (Better) Range: 211-911 09:59 FOLATE 3608 FOLATE 7.4 ng/mL (Better) Range: 5.4-20.8 10:11 ECG/ EKG Preop Electro CardioGram (Better) 10:27 XRay CHEST-PA & LAT Comments: Exam Date: 02/07/2016 09: 49Dictation Date: 02/07/2016 10:27 X CHEST PA & LAT (Better) 11:29 Urine Microscopic UMIC Comments: DOS 02/15/16 DR[facility] NAJERA AT [facility] Fastin hours WBC 3-5 /HPF (Better) Range: 0-5 MUCUS 2+ /LPF (Better) Range: Negative-2+ EPITH 0-2 /HPF (Better) Range: 0-10 Plan of Care Planned Observations Name Dates Details Planned Goals not documented Goal Planned Encounters Appointment; Provider: Zachary Painter On 24-Jul-2016 09:15 Appointment; Provider: Carlos Jackson On 15-May-2016 09:15 Appointment; Provider: Marv Najera On 09:00 Appointment; Provider: Cole Sprague On 11:30 Appointment; Provider: Marv Najera On 08:15 Appointment; Provider: Marv Najera On 09:30 Appointment; Provider: Marv Najera On 13:30 Appointment; Provider: Marv Najera On 08:15 Appointment; Provider: Marv Najera On 08:45 Appointment; Provider: Cole Sprague On 16:00 Appointment; Provider: Marv Najera On 09:00 Appointment; Provider: Schedule Radiology On 06-Dec-2015 15:00 [...] not documented Encounters Appointment; Carlos Jackson On Encounter Diagnosis: Problem not documented 09:45 Appointment; Marv Najera On 02-Feb-2016 Encounter Diagnosis: Problem not documented 08:45 Appointment; Zachary Painter On 29-Jan-2016 Encounter Diagnosis: Problem not documented 08:15 Appointment; Carlos Jackson On 29-Jan-2016 Encounter Diagnosis: Problem not documented 08:00 Appointment; Zachary Painter On 20-Dec-2015 Encounter Diagnosis: Problem not documented 08:15 Appointment; Kehinde Mcmullen On 18-Dec-2015 Encounter Diagnosis: Problem not documented 10:00 Appointment; Fernandez Malik On 14-Dec-2015 Encounter Diagnosis: Problem not documented 10:30 Appointment; Carlos Jackson On 12-Dec-2015 Encounter Diagnosis: [...]
--- OUTSIDE RECORDS SUMMARY | 2017-12-04 14:29 | External Medical Summary | Summary of Care ---
:1940 Author Name Zachary Painter M.D. Address [address], [place] [id number] Care Team Providers Name Role Phone Celestine Givens, Cole Thapa Unavailable Unavailable Carin Hawk Unavailable Unavailable Incoencio Givens, Zachary Alberto Unavailable Unavailable Renetta Givens, Carlos Anderson Unavailable [...] of Memory loss (780.93, R41.3) Status: Resolved Hypertension (401.9, I10) Status: Active Impaired fasting glucose (790.21, R73.01) Status: Active Asthma (493.90, J45.909) Status: Active Chronic obstructive pulmonary disease (496, J44.9) Status: Active Pain of left shoulder joint on movement (719.41, M25.512) Status: Active Rotator cuff tendinitis, left (726.10, M75.82) Status: Active Chronic kidney disease, stage III (moderate) (585.3, N18.3) Status: Active 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, M19.012) Status: Active Essential and other specified forms of tremor (333.1, G25.0) Status: Active Vitamin B 12 deficiency (266.2, E53.8) Status: Active Parkinson's disease (332.0, G20) Status: Active Medications Name Dates Details Pantoprazole [...] 1 Refills: 0 Carin Hawk Started 13-Sep-2015 [id number] GM Tube TraMADol HCl - 50 MG Oral Tablet TAKE 1 TABLET 4 TIMES DAILY NEEDED FOR PAIN. Quantity: 20 Refills: 0 Carlos Jackson M.D. Started 28-Nov-2015 ActivePromethazine-Codeine 6.25-10 MG/5ML Oral Syrup TAKE ONE TEASPOONFUL BY MOUTH EVERY FOUR HOURS NEEDED FOR COUGH Quantity: 120 Refills: 0 Carlos Jackson M.D. Started 18-Aug-2015 ActiveCarbidopa-Levodopa 25-100 MG Oral Tablet Take one tab at 7 AM and one tab at 2 PM. Quantity: 60 Refills: 5 Zachary Painter M.D. Started 20-Dec-2015 Active Allergies and Adverse Reactions Name Dates [...] Vertebroplasty, Injection Thoracic BASIC METABOLIC PROFILE 1210 Ordered:13-Dec-2015 CBC w/ Auto Diff 7150 Ordered:13-Dec-2015 VITAMIN B12 3606 Ordered:13-Dec-2015 FOLATE 3608 Ordered:14-Dec-2015 Immunization Name Dates Details Pneumo (Pneumovax) Administered on:12-Jul-2008 Influenza Administered on:10-May-2009 Influenza A (H1N1) Monoval Vac Intramuscular Suspension Administered on:2009 Influenza A (H1N1) Monoval PF Intramuscular Suspension Administered on:2009 Influenza A (H1N1) Monoval Vac Intramuscular Suspension Administered on: Zoster (Zostavax) Administered on:05-Aug-2011 Influenza Administered on:23-Jun-2012 Lot #: [id number] Fluzone High-Dose Intramuscular Suspension Administered on:30-Jun-2013 Lot #: [id number] Fluzone High-Dose Intramuscular Suspension #1 Administered on:16-Jun-2014 Lot #: [id number] Fluzone High-Dose Intramuscular Suspension Administered on:09-Jun-2015 Lot #: [id number] Family History Grandmother Name Dates Details Family [...] smoker Vital Signs Date Test Result Details 20-Dec-2015 08:10 BP Systolic 130 mm[Hg] Status: BP Diastolic 74 mm[Hg] Status: Heart Rate 96 /min Status: Weight 128.2 lb Status: O2 SAT 96 % Status: Body Mass Index Calculated 22.01 kg/m2 Status: Body Surface Area Calculated 1.62 m2 Status: 18-Dec-2015 10:22 BP Systolic 136 mm[Hg] Status: BP Diastolic 70 mm[Hg] Status: Heart Rate 80 /min Status: Height 64 in Status: 12-Dec-2015 14:24 BP Systolic 128 mm[Hg] Status: [...] On 11:30 Appointment; Provider: Carlos Jackson On 15:30 Appointment; Provider: Zachary Painter On 29-Jan-2016 08:15 Appointment; Provider: Schedule Radiology On 06-Dec-2015 15:00 [...] 14:00 Instructions Instructions not documented Encounters Appointment; Zachary Painter On 20-Dec-2015 Encounter Diagnosis: [...]
--- OUTSIDE RECORDS SUMMARY | 2017-12-04 14:29 | External Medical Summary | Summary of Care ---
:1940 Author Name Carlos Jackson M.D. Address Unavailable Unavailable , Care Team Providers Name Role Phone Celestine Givens, Cole Thapa Unavailable Unavailable WidCarin chen Unavailable Unavailable Carlos Jackson M.D. Unavailable [...] obstructive pulmonary disease (496, J44.9) Status: Active Depression (311, F32.9) Status: Active Gastroesophageal reflux disease (530.81, K21.9) Status: Active Osteoarthritis (arthritis due to wear and tear of joints) (715.90, M19.90) Status: Active Osteoarthritis (arthritis due to wear and tear of joints) (715.90, M19.90) Status: Active COPD exacerbation (491.21, J44.1) Status: Active Asthma (493.90, J45.909) Status: Active Essential and other specified forms of tremor (333.1, G25.0) Status: Active Cough (786.2, R05) Status: Active Hypertension (401.9, I10) Status: Active Impaired fasting glucose (790.21, R73.01) Status: Active Chronic kidney disease (CKD), stage 3 (moderate) (585.3, N18.3) Status: Active Parkinson's disease (332.0, G20) Status: Active Vitamin B 12 deficiency (266.2, E53.8) Status: Active Closed head injury, initial encounter (959.01, S09.90XA) Status: Active Fall with injury, initial encounter (959.9, W19.XXXA) Status: Active Laceration of head (873.8, S01.91XA) Status: Active Medications Name Dates Details Sertraline HCl - 100 MG Oral Tablet take 1 tablet by mouth every day Quantity: 30 Refills: 0 Carlos Jackson M.D. Start 29-Oct-2016 Active Fluticasone Propionate 50 MCG/ACT Nasal Suspension SQUIRT 2 SPRAYS IN EACH NOSTRIL ONCE DAILY Quantity: 16 Refills: 11 Cole Sprague M.D. Start 12-Sep-2009 Active Diclofenac Sodium 1 % Transdermal Gel APPLY DIRECTED TO AFFECTED AREA THREE TIMES A DAY NEEDED Quantity: 1 Refills: 3 Carlos Jackson M.D. Start Active 100 GM Tube Cetirizine HCl - 10 MG Oral Tablet TAKE 1 TABLET BY MOUTH EVERY DAY DIRECTED Quantity: 90 Refills: 0 Carlos Jackson M.D. Start 11-Oct-2016 Active Fluticasone Propionate 50 MCG/ACT Nasal Suspension USE 1 TO 2 SPRAYS IN EACH NOSTRIL ONCE DAILY. Refills: 0 Carlos Jackson M.D. Start 16-Jun-2015 Active Mupirocin 2 % External Ointment APPLY A SMALL AMOUNT 3 TIMES DAILY DIRECTED. Quantity: 1 Refills: 0 Carin Hawk Start 13-Sep-2015 Active 22 GM Tube Cyanocobalamin 2500 MCG Sublingual Tablet Sublingual Take one daily Quantity: 100 Refills: 2 Carlos Jackson M.D. Start 02-Oct-2016 Active Allergies and Adverse Reactions Name Dates Details Broelizabetha NEBU (Allergy) Status: Active Effexor TABS (Allergy) [...] wrist (923.21, S60.212A) Status: Resolved History of Dislocation of interphalangeal [...] Right Eye BASIC METABOLIC PROFILE 1210 Ordered: Immunization Name Dates Details Pneumo (Pneumovax) on: 12-Jul-2008 Influenza on: 10-May-2009 Influenza A (H1N1) Monoval Vac SUSP on: 12-Sep-2009 Influenza A (H1N1) Monoval PF SUSP on: 08-Jun-2010 Influenza A (H1N1) Monoval Vac SUSP on: 19-Jun-2011 Zoster (Zostavax) on: 05-Aug-2011 Influenza on: 23-Jun-2012 Lot #: [id number] Fluzone High-Dose SUSP on: 30-Jun-2013 Lot #: [id number] Fluzone High-Dose SUSP #1 on: 16-Jun-2014 Lot #: [id number] Fluzone High-Dose SUSP on: 09-Jun-2015 Lot #: [id number] Fluzone Quadrivalent 0.5 ML Intramuscular Suspension on: 15-May-2016 Lot #: [id number] Prevnar 13 Intramuscular Suspension on: 02-Oct-2016 Lot #: [id number] Family History Grandmother Name Dates Details Family [...] smoker Vital Signs Date Test Result Details [id number] 11:41 BP Systolic 132 mm[Hg] Status: Comments: Location: LUE; Position: Sitting BP Diastolic 69 mm[Hg] Status: Comments: Location: LUE; Position: Sitting 11:34 BP Systolic 102 mm[Hg] Status: Comments: Location: ; Position: BP Diastolic 55 mm[Hg] Status: Comments: Location: ; Position: 11:32 BP Systolic 134 mm[Hg] Status: Comments: Location: ; Position: BP Diastolic 74 mm[Hg] Status: Comments: Location: ; Position: Heart Rate 73 /min Status: Comments: Location: ; Weight 110.0 lb Status: Physical Findings 98 Status: Comments: O2 Saturation Body Mass Index Calculated 18.88 kg/m2 Status: Body Surface Area Calculated 1.52 m2 Status: 14:00 BP Systolic 160 mm[Hg] Status: Comments: Location: ; Position: Sitting BP Diastolic 82 mm[Hg] Status: Comments: Location: ; Position: Sitting Temperature 98.2 f Status: Heart Rate 80 /min Status: Comments: Location: ; Physical Findings 96 Status: Comments: O2 Saturation 14:55 BP Systolic 134 mm[Hg] Status: Comments: Location: ; Position: Standing BP Diastolic 74 mm[Hg] Status: Comments: Location: ; Position: Standing Heart Rate 67 /min Status: Weight 114.4 lb Status: Physical Findings 96 Status: Comments: O2 Saturation Body Mass Index Calculated 19.64 kg/m2 Status: Body Surface Area Calculated 1.54 m2 Status: 21-Jan-2017 09:54 BP Systolic 128 mm[Hg] Status: Comments: Location: ; Position: Supine BP Diastolic 76 mm[Hg] Status: Comments: Location: ; Position: Supine Heart Rate 72 /min Status: Weight 116.8 lb Status: Physical Findings 98 Status: Comments: O2 Saturation Body Mass Index Calculated 20.05 kg/m2 Status: Body Surface Area Calculated 1.56 m2 Status: Results Date Description Value Details 10:20 BASIC METABOLIC PROFILE 1210 SODIUM 142 mmol/L Range: 133-144 POTASSIUM 3.6 mmol/L Range: 3.5-5.1 CHLORIDE 106 mmol/L Range: 98-110 CARBON DIOXIDE 27.9 mmol/L Range: 23.0-33.0 ANION GAP 8 mmol/L Range: 6-16 BUN 14 mg/dL Range: 7-18 CREATININE, SERUM 1.08 mg/dL (Above high Range: 0.55-1.02 threshold) EST GFR, 60 ml/min (Below low Range: >60 threshold) EST GFR, NON-AFR DANISH 49 ml/min (Below low Range: >60 threshold) Comments: EST GFR is reported in ml/min per 1.73 m2 of body surface area. ----- BUN:CREATININE RATIO 13 GLUCOSE 97 mg/dL Range: 70-100 CALCIUM 8.8 mg/dL Range: 8.5-10.1 10:46 VITAMIN B12 3606 VITAMIN B12 1535 pg/mL (Above high threshold) Range: 211-911 14:44 XRay RIBS-Left W/PA CXR Comments: Exam Date: 02/13/2017 14: 03Dictation Date: 02/13/2017 14:44 X RIBS UNILAT W/PA CHEST LT 15:44 CT HEAD WITHOUT IV CONTRAST Comments: Exam Date: 02/13/2017 15: 10Dictation Date: 02/13/2017 15:44 XC HEAD Plan of Care Name Dates Details Planned Observations Planned Goals not documented Planned Encounters Appointment; Provider: Carlos Jackson M.D. On 08-Oct-2017 13:45 Appointment; Provider: Zachary Painter M.D. On 23-Jul-2017 09:45 Appointment; Provider: Carlos Jackson M.D. On 18-Jun-2017 14:30 Appointment; Provider: Schedule Radiology On 10:50 Appointment; Provider: Cole Sprague M.D. On 10:30 Appointment; Provider: Carlos Jackson M.D. On 11:30 Instructions Name Dates Details Instructions not documented Encounters Appointment; Carlos Mujica M.D. On Encounter Diagnosis: Problem not documented 13:45 Appointment; Carlos Jackson M.D. On Encounter Diagnosis: Problem not documented 14:45 Appointment; Zachary Painter M.D. On 21-Jan-2017 Encounter Diagnosis: Problem not documented 09:45 Appointment; Yessy Jackson P.A. On 28-Nov-2016 Encounter Diagnosis: Problem not documented 09:00 Appointment; Kehinde Mcmullen M.D. On 07-Oct-2016 Encounter Diagnosis: Problem not documented 10:00 Appointment; Cralos Jackson M.D. On 02-Oct-2016 Encounter Diagnosis: Problem [...]
--- OUTSIDE RECORDS SUMMARY | 2017-12-04 14:29 | External Medical Summary | Summary of Care ---
:1940 Author Name Carlos Jackson M.D. Address Unavailable Unavailable , Care Team Providers Name Role Phone Celestine Givens, Cole Thapa Unavailable Unavailable Mariya Givens, Marv Patterson Unavailable Unavailable WidlerCarin Unavailable Unavailable Renetta Givens, Carlos Anderson Unavailable Unavailable Carlos Jackson Unavailable Unavailable Unavailable [...] left glenohumeral joint (715.91, M19.012) Status: Active Vitamin B 12 deficiency (266.2, E53.8) Status: Active Preop examination (V72.84, Z01.818) Status: Active Hypercholesterolemia (272.0, E78.0) Status: Active Impaired fasting glucose (790.21, R73.01) Status: Active Anxiety (300.00, F41.9) Status: Active Pseudophakia of left eye (V43.1, Z96.1) Status: Active Pseudophakia of right eye (V43.1, Z96.1) Status: Active Screening for breast cancer (V76.10, Z12.39) Status: Active Asthma (493.90, J45.909) Status: Active Allergic rhinitis (477.9, J30.9) Status: Active Chronic kidney disease, stage III (moderate) (585.3, N18.3) Status: Active Chronic obstructive pulmonary disease (496, J44.9) Status: Active Hypertension (401.9, I10) Status: Active Essential and other specified forms of tremor (333.1, G25.0) Status: Active Parkinson's disease (332.0, G20) Status: Active Medications Name Dates Details Pantoprazole Sodium 40 MG Oral Tablet Delayed Release TAKE 1 TABLET BY MOUTH TWICE A DAY 30 MINUTES BEFORE BREAKFAST & DINNER Quantity: 60 Refills: 6 Celestine Givens Cole Thapa Start 04-Feb-2008 Active Sertraline HCl - 100 MG Oral Tablet take 1 tablet by mouth every day Quantity: 30 Refills: 5 Carlos Jackson M.D. Start Active Fluticasone Propionate 50 MCG/ACT Nasal Suspension SQUIRT 2 SPRAYS IN EACH NOSTRIL ONCE DAILY Quantity: 16 Refills: 0 Carlos Jackson M.D. Start 08-Apr-2016 Active Voltaren 1 % Transdermal Gel APPLY [...] Oral Tablet Refills: 0 Start 02-Feb-2016 Active Vigamox 0.5 % Ophthalmic Solution INSTILL 1 DROP INTO AFFECTED EYE(S) 3 TIMES DAILY. Quantity: 1 Refills: 1 Marv Meraz M.D. Start Active 3 ML Bottle PrednisoLONE Acetate 1 % Ophthalmic Suspension Install 1 drop as directed 6 times daily (during waking hours) Starting after surgery. Quantity: 10 Refills: 1 Marv Meraz M.D. Start Active Allergies and Adverse Reactions Name Dates Details Sonia CARO (Allergy) Status: Active Effexor TABS (Allergy) Status: [...] on: 05-Aug-2011 Influenza on: 23-Jun-2012 Lot #: [id number] Fluzone High-Dose SUSP on: 30-Jun-2013 Lot #: [id number] Fluzone High-Dose SUSP #1 on: 16-Jun-2014 Lot #: [id number] Fluzone High-Dose SUSP on: 09-Jun-2015 Lot #: [id number] Family History Grandmother Name Dates Details Family [...] smoker Vital Signs Date Test Result Details 15-May-2016 09:18 BP Systolic 126 mm[Hg] Status: Comments: Location: ; Position: BP Diastolic 70 mm[Hg] Status: Comments: Location: ; Position: Heart Rate 72 /min Status: Comments: Location: ; Weight 125 lb Status: Body Mass Index Calculated 21.46 kg/m2 Status: Body Surface Area Calculated 1.6 m2 Status: Results Date Description Value Details 15-May-2016 09:18 BASIC METABOLIC PROFILE 1210 SODIUM 139 mmol/L Range: 133-144 POTASSIUM 3.9 mmol/L Range: 3.5-5.1 CHLORIDE 103 mmol/L Range: 98-110 CARBON DIOXIDE 25.9 mmol/L Range: 23.0-33.0 ANION GAP 10 mmol/L Range: 6-16 BUN 15 mg/dL Range: 7-18 CREATININE, SERUM 1.01 mg/dL Range: 0.55-1.02 Comments: Please note new reference ranges effective 2015.----- EST GFR, >60 ml/min Range: >60 EST GFR, NON-AFR [place] 53 ml/min (Below low Range: >60 threshold) Comments: EST GFR is reported in ml/min per 1.73 m2 of body surface area. ----- BUN:CREATININE RATIO 15 GLUCOSE 97 mg/dL Range: 70-100 CALCIUM 8.9 mg/dL Range: 8.5-10.1 Plan of Care Name Dates Details Planned Observations Planned Goals not documented Planned Encounters Appointment; Provider: Schedule Radiology On 10:50 Appointment; Provider: Cole Sprague M.D. On 02-Oct-2016 10:30 Appointment; Provider: Zachary Painter M.D. On 24-Jul-2016 09:15 Instructions Name Dates Details Instructions not documented Encounters Appointment; Cole Sprague M.D. On Encounter Diagnosis: [...] Problem not documented 11:30 Appointment; Carlos Jackson M.D. On 06-Jul-2014 Encounter Diagnosis: Problem not documented 13:30 Appointment; Carlos Jackson M.D. On 20-Jun-2014 Encounter Diagnosis: Problem not documented 14:00 Appointment; Nicola Rosado On 16-Jun-2014 Encounter Diagnosis: Problem not documented 15:30 Appointment; Devang Shell M.D. On 16-Jun-2014 Encounter Diagnosis: Problem not documented 14:00 Appointment; Deacon Ng M.D. On 26-May-2014 Encounter Diagnosis: Problem not documented 08:45
--- OUTSIDE RECORDS SUMMARY | 2017-12-04 14:30 | External Medical Summary | Summary of Care ---
:1940 Author Name Carin Hawk Address [address] [place] [address] Care Team Providers Name Role Phone Celestine Givens, Cole Thapa Unavailable Unavailable Nadir Muñoz, Konrad Unavailable Unavailable Carin Hawk Unavailable Unavailable Renetta Givens, Carlos Anderson Unavailable Unavailable Carlos Jackson Primary Care Provider Unavailable Unavailable Unavailable Unavailable Functional Status Functional Status Health Issues Name Dates Details Functional status health issues are not documented Status: Cognitive Status Health Issues Name Dates Details Cognitive status health issues are not documented Status: Problems Name Dates Details Epidermal inclusion cyst (706.2, L72.0) Status: Active Hiatal hernia (553.3, K44.9) Status: Active Sleep apnea (780.57, G47.30) Status: Active 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, 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 Esophageal reflux (530.81, K21.9) Status: Active Allergic rhinitis due to pollen (477.0, J30.1) Status: Active Allergic rhinitis due to animals (477.2, J30.81) Status: Active Laryngomalacia (748.3, Q31.5) Status: Active Vitamin d deficiency (268.9, E55.9) Status: Active Cervical radiculopathy (723.4, M54.12) Status: Active Incipient senile cataract (366.12, H25.099) Status: Active Hypercholesterolemia (272.0, E78.0) Status: Active Allergic rhinitis due to allergen (477.9, J30.9) Status: Active Lower back pain (724.2, M54.5) Status: Active Compression fracture of L1 lumbar vertebra (805.4, S32.010A) Status: Active Compression fracture of T12 vertebra (805.2, M48.54XA) Status: Active Allergic rhinitis (477.9, J30.9) Status: Active Skin abscess (682.9, L02.91) Status: Active Dislocation of interphalangeal joint of left ring finger (834.02, S63.275A) Status: Active Flu vaccine need (V04.81, Z23) Status: Active Dislocation of left ring finger (834.00, S63.255A) Status: Active Contusion of left wrist (923.21, S60.212A) Status: Active Sebaceous cyst (706.2, L72.3) Status: Active Tremor (781.0, R25.1) Status: Active Osteoarthritis (715.90, M19.90) Status: Active Cough (786.2, R05) Status: Active Hyperlipidemia (272.4, E78.5) Status: Active Impaired fasting glucose (790.21, R73.01) Status: Active Screening for colon cancer (V76.51, Z12.11) Status: Active Asthma (493.90, J45.909) Status: Active Contusion of chest wall, right, initial encounter (922.1, S20.211A) Status: Active Strain of right hip, initial encounter (843.9, S76.011A) Status: Active Osteopenia (733.90, M85.80) Status: Active Anxiety (300.00, F41.9) Status: Active Depression (311, F32.9) Status: Active Chronic kidney disease, stage III (moderate) (585.3, N18.3) Status: Active Acute sinusitis (461.9, J01.90) Status: Active Fall (E888.9, W19.XXXA) Status: Active History of Closed head injury (959.01, S09.90XA) Status: Resolved Sea sickness (994.6, T75.3XXA) Status: Active History of Contusion of forehead, initial encounter (920, S00.83XA) Status: Resolved Hypertension (401.9, I10) Status: Active Chronic obstructive pulmonary disease (496, J44.9) Status: Active Transient disorientation (780.99, R41.0) Status: Active History of Memory loss (780.93, R41.3) Status: Resolved History of Confusion (298.9, R41.0) Status: Resolved Vitamin B 12 deficiency (266.2, E53.8) Status: Active Post-concussional syndrome (310.2, F07.81) Status: Active Essential and other specified forms of tremor (333.1, G25.0) Status: Active Lower respiratory infection (e.g., bronchitis, pneumonia, pneumonitis, pulmonitis) (519.8, J22) Status: Active Medications Name Dates Details Pantoprazole Sodium 40 MG Oral Tablet Delayed Release TAKE 1 TABLET BY MOUTH TWICE A DAY 30 MINUTES BEFORE BREAKFAST & DINNER Quantity: 60 Refills: 6 Cole Sprague M.D. Started 04-Feb-2008 ActiveVoltaren 1 % Transdermal Gel APPLY DIRECTED TO AFFECTED AREA THREE TIMES A DAY NEEDED Quantity: 100 Refills: 0 Carlos Jackson M.D. Started ActiveCalcium 1500 MG TABS TAKE 1 TABLET DAILY. Refills: 0 Konrad Schmitz D.O. Started 26-May-2015 ActiveFluticasone Propionate 50 MCG/ACT Nasal Suspension USE 1 TO 2 SPRAYS IN EACH NOSTRIL ONCE DAILY. Refills: 0 Carlos Jackson M.D. Started 16-Jun-2015 ActiveLevofloxacin 500 MG Oral Tablet TAKE 1 TABLET DAILY. Quantity: 7 Refills: 0 Carin Hawk Started 18-Aug-2015 Ended 25-Aug-2015 ActivePromethazine-Codeine 6.25-10 MG/5ML Oral Syrup Take 5 - 7.5 ml at bedtime for cough Quantity: 1 Refills: 0 Carin Hawk Started 18-Aug-2015 [id number] ML Bottle Allergies and Adverse Reactions Name Dates Details Sonia CARO Status: Active Effexor TABS Status: Active Sulfa Drugs Status: Active Past Medical History Name Dates Details History of abdominal pain (V13.89, Z87.898) Status: Resolved History of acute bronchitis (V12.69, Z87.09) Status: Resolved History of Acute maxillary sinusitis (461.0, J01.00) Status: Resolved History of benign essential tremor (V12.49, Z86.69) Status: Resolved History of carpal tunnel syndrome (V12.49, Z86.69) Status: Resolved History of Chronic Cough Status: Resolved History of Chronic sinusitis (473.9, J32.9) Status: Resolved History of Closed head injury (959.01, S09.90XA) Status: Resolved History of Confusion (298.9, R41.0) Status: Resolved History of Contusion of forehead, initial encounter (920, S00.83XA) Status: Resolved History of Dysuria (788.1, R30.0) Status: Resolved History of edema (V13.89, Z87.898) Status: Resolved History of Elevated erythrocyte sedimentation rate (790.1, R70.0) Status: Resolved History of fever (V13., Z87.898) Status: Resolved History of headache (V13., Z87.898) Status: Resolved History of Long-term current use of steroids (V58.65) Status: Resolved History of Memory loss (780.93, R41.3) Status: Resolved History of renal insufficiency syndrome (V13.09, Z87.448) Status: Resolved History of vomiting (V13., Z87.898) Status: Resolved Procedures Procedure Dates Details [...] Administered on:05-Aug-2011 Influenza Administered on:23-Jun-2012 Lot #: [id number] Fluzone High-Dose Intramuscular Suspension Administered on:30-Jun-2013 Lot #: [id number] Fluzone High-Dose Intramuscular Suspension #1 Administered on:16-Jun-2014 Lot #: [id number] Fluzone High-Dose Intramuscular Suspension Administered on:09-Jun-2015 Lot #: [id number] Family History Grandmother Name Dates Details Family [...] smoker Vital Signs Date Test Result Details 18-Aug-2015 14:57 BP Systolic 110 mm[Hg] Status: BP Diastolic 57 mm[Hg] Status: Temperature 97.7 f Status: Heart Rate 74 /min Status: Weight 129 lb Status: O2 SAT 97 % Status: Body Mass Index Calculated 22.14 kg/m2 Status: Body Surface Area Calculated 1.62 m2 Status: 17-Aug-2015 10:48 BP Systolic 122 mm[Hg] Status: BP Diastolic 80 mm[Hg] Status: Heart Rate 76 /min Status: Weight 126.8 lb Status: Body Mass Index Calculated 21.77 kg/m2 Status: Body Surface Area Calculated 1.61 m2 Status: Results Date Description Value Details Results not documented Plan of Care Planned Observations Name Dates Details Planned Goals not documented Goal Planned Encounters Appointment; Provider: Zachary Painter On 20-Dec-2015 08:15 Appointment; Provider: Cole Sprague On 04-Oct-2015 13:15 Appointment; Provider: Carlos Jackson On 23-Aug-2015 14:15 Appointment; Provider: Schedule Radiology On 05-Jun-2015 11:00 [...] 14:00 Instructions Instructions not documented Encounters Appointment; Carin Hawk On 18-Aug-2015 Encounter Diagnosis: [...]
--- OUTSIDE RECORDS SUMMARY | 2017-12-04 14:30 | External Medical Summary | Summary of Care ---
:1940 Author Name Carlos Jackson M.D. Address [address], [place] [id number] Care Team Providers Name Role Phone Cole Sprague M.D. Unavailable Unavailable Carlos Jackson M.D. 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 Esophageal reflux (530.81, K21.9) Status: Active Laryngomalacia (748.3, Q31.5) Status: Active Vitamin d deficiency (268.9, E55.9) Status: Active Hypercholesterolemia (272.0, E78.0) Status: Active Allergic rhinitis (477.9, J30.9) Status: Active Tremor (781.0, R25.1) Status: Active Osteoarthritis (715.90, M19.90) Status: Active Hyperlipidemia (272.4, E78.5) Status: Active Impaired fasting glucose (790.21, R73.01) Status: Active Asthma (493.90, J45.909) Status: Active Osteopenia (733.90, M85.80) Status: Active Anxiety (300.00, F41.9) Status: Active Depression (311, F32.9) Status: Active Chronic kidney disease, stage III (moderate) (585.3, N18.3) Status: Active Acute sinusitis (461.9, J01.90) Status: Active Hypertension (401.9, I10) Status: Active Chronic obstructive [...] Refills: 0 Carlos Jackson M.D. Started 16-Jun-2015 ActiveSertraline HCl - 100 MG Oral Tablet TAKE 1 TABLET DAILY. Refills: 0 Carlos Jackson M.D. Started 23-Aug-2015 Active Allergies and Adverse Reactions Name Dates [...] sinusitis (461.0, J01.00) Status: Resolved History of allergic rhinitis (V12.69, Z87.09) Status: Resolved History of Allergic rhinitis due to animals (477.2, J30.81) Status: Resolved History of Allergic rhinitis due to pollen (477.0, J30.1) Status: Resolved History of benign essential tremor [...] Administered on:05-Aug-2011 Influenza Administered on:23-Jun-2012 Lot #: [id number] Fluzone High-Dose Intramuscular Suspension Administered on:30-Jun-2013 Lot #: [id number] Fluzone High-Dose Intramuscular Suspension #1 Administered on:16-Jun-2014 Lot #: [id number] Fluzone High-Dose Intramuscular Suspension Administered on:09-Jun-2015 Lot #: [id number] Family History Grandmother Name Dates Details Family [...] smoker Vital Signs Date Test Result Details 23-Aug-2015 14:49 BP Systolic 124 mm[Hg] Status: BP Diastolic 70 mm[Hg] Status: Heart Rate 72 /min Status: Weight 127 lb Status: Body Mass Index Calculated 21.8 kg/m2 Status: Body Surface Area Calculated 1.61 m2 Status: 18-Aug-2015 14:57 BP Systolic 110 mm[Hg] Status: [...] m2 Status: Results Date Description Value Details 22-Aug-2015 16:53 CBC w/ Auto Diff 7150 Comments: Fastin hours WBC 7.5 K/uL (Better) Range: 4.5-11.0 RBC 4.36 mil/uL Range: 3.60-5.00 (Better) HGB 14.0 g/dL Range: 12.0-16.0 (Better) HCT 43.4 % (Better) Range: 36.0-48.0 MCV 99.6 fL (Above Range: 80.0-99.0 high threshold) MCH 32.1 pg (Better) Range: 27.3-32.5 MCHC 32.3 % (Better) Range: 32.0-36.0 RDW 13.4 % (Better) Range: 11.6-14.8 PLATELETS 276 K/uL (Better) Range: 150-400 MPV 7.3 fL (Better) Range: 6.0-11.0 %NEUTRO 66.9 % (Better) Range: 37.0-80.0 %LYMPHS 19.5 % (Better) Range: 13.0-50.0 %MONO 5.4 % (Better) Range: 0.0-12.0 %EOS 4.1 % (Better) Range: 0.0-7.0 %BASO 0.5 % (Better) Range: 0.0-2.5 %LISE 3.6 % (Better) Range: 0.0-5.0 NEUTRO 5.0 K/uL (Better) Range: 2.0-6.9 LYMPHS 1.5 K/uL (Better) Range: 0.6-3.4 MONOS 0.4 K/uL (Better) Range: 0.0-0.9 EOS 0.3 K/uL (Better) Range: 0.0-0.7 BASO 0.0 K/uL (Better) Range: 0.0-0.2 16:53 Comprehensive Metabolic Comments: Fastin hours Panel 1212 SODIUM 138 mmol/L Range: 133-144 (Better) POTASSIUM 3.9 mmol/L Range: 3.5-5.1 (Better) CHLORIDE 101 mmol/L Range: 98-110 (Better) CARBON DIOXIDE 28.0 mmol/L Range: 23.0-33.0 (Better) ANION GAP 9 mmol/L (Better) Range: 6-16 BUN 11 mg/dL (Better) Range: 7-18 CREATININE, SERUM 1.25 mg/dL (Above Range: 0.55-1.02 high threshold) Comments: Please note new reference ranges effective 01/28.----- BUN:CREATININE RATIO 9 (Better) EST GFR, 51 ml/min (Below Range: >60 low threshold) EST GFR, NON-AFR [place] 42 ml/min (Below Range: >60 low threshold) Comments: EST GFR is reported in ml/min per 1.73 m2 of body surface area. For -Armenian, please multiple result by 1.2.----- GLUCOSE 106 mg/dL (Above Range: 70-100 high threshold) ALK PHOSPHATASE 79 U/L (Better) Range: 46-116 TOTAL BILIRUBIN 0.20 mg/dL Range: 0.20-1.00 (Better) AST 19 U/L (Better) Range: 8-35 ALT 20 U/L (Better) Range: 14-59 Comments: Please note new reference ranges. Effective 11/17/2014.----- ALBUMIN 4.0 g/dL (Better) Range: 3.4-5.0 TOTAL PROTEIN 7.8 g/dL (Better) Range: 6.4-8.2 A/G RATIO 1.1 units Range: 1.0-1.8 (Better) CALCIUM 9.0 mg/dL Range: 8.5-10.1 (Better) 16:53 LIPID PROFILE 1184 Comments: Fastin hours CHOLESTEROL 214 mg/dL (Above Range: <200 high threshold) TRIGLYCERIDES 279 mg/dL (Above Range: 30-200 high threshold) HDL Cholesterol 62 mg/dL (Better) Range: >39 NON HDL CHOLESTEROL 152 (Better) CARDIAC RSK FACTOR 3.5 units (Below Range: 4.4-5.0 low threshold) LDL - CALCULATED 96 mg/dL (Better) Range: 0-130 17:03 THYROID STIM. HORMONE 3602 Comments: Fastin hours THYROID STIM. HORMONE 0.791 uIU/mL Range: 0.550-4.780 (Better) Comments: No established reference ranges for infants and children <2 years of age----- Plan of Care Planned Observations Name Dates Details Planned Goals not documented Goal Planned Encounters Appointment; Provider: Zachary Painter On 20-Dec-2015 08:15 Appointment; Provider: Cole Sprague On 04-Oct-2015 13:15 Appointment; Provider: Schedule Radiology On 05-Jun-2015 11:00 [...] not documented Encounters Appointment; Carlos Jackson On 23-Aug-2015 Encounter Diagnosis: [...]
--- OUTSIDE RECORDS SUMMARY | 2017-12-04 14:30 | External Medical Summary ---
:1940 Author Name GENERATED, SYSTEM Care Team Providers Name Role Phone MD SATYA, MIGUEL ANGEL Primary Care Provider [phone] Reason For Visit Chief Complaint MEMORY ISSUE FALL 04/28 Social History Functional Status Vital Signs Results Chemistry from 05/22/2015 6:38 [id number] MMOL/L L (136-145 MMOL/L) POTASSIUM3.6 MMOL/L (3.5-5.1 MMOL/L) [id number] MMOL/L (98-107 MMOL/L) MHY637.3 MMOL/L (21.0-32.0 MMOL/L) ANION GAP7.7 MMOL/L L (8.0-16.0 MMOL/L) BUN13 MG/DL (7-18 MG/DL) CREATININE0.97 MG/DL (0.55-1.02 MG/DL) BUN/CREATININE RATIO13.4 (9.1-17.0 ) [id number] MG/DL H (65-99 MG/DL) GFR EST NON AFR QNRLGAIO13 ML/MIN GFRA EST AFR AMER66 ML/MIN CALCIUM9.2 MG/DL (8.5-10.1 MG/DL) BILIRUBIN TOTAL0.43 MG/DL (0.20-1.00 MG/DL) TOTAL PROTEIN7.1 GM/DL (6.4-8.2 GM/DL) ALBUMIN3.8 GM/DL (3.4-5.0 GM/DL) GLOBULIN3.3 GM/DL (2.3-3.5 GM/DL) A/G RATIO1.2 MG/DL L (1.5-2.2 MG/DL) ALK MTZI092 U/L H (46-116 U/L) ALT (SGPT)16 U/L (16-63 U/L) AST (SGOT)14 U/L L (15-37 U/L) ALCOHOL<0.003 GM/DLHematology from 05/22/2015 6:38 PMWBC8.6 X10e3/UL (3.6- 11.2 X10e3/UL) RBC3.86 X10e6/UL (3.63-4.92 X10e6/UL) ARDRXHBFEG55.2 G/DL (11.0-14.3 G/DL) PBHGIHMDVB53.0 % (31.2-41.9 %) MCV98.4 FL H (79.0-98.0 FL) MCH34.2 PG H (27.0-33.0 PG) MCHC34.8 G/DL (32.0-36.0 G/DL) RDW12.2 % L (12.3-17.0 %) RDWSD42.0 (37.1-47.8 ) BHEABBAN691 X10e3/UL (159-386 X10e3/UL) MPV6.7 FL L (7.4-10.4 FL) AUTOMATED DIFFPERFORMED SEGS62.3 % JEQDPRYPPAQ28.8 % MONOCYTES8.5 % EOSINOPHILS1.7 % BASOPHILS0.7 % ABSOLUTE NEUTROPHILS5.40 X10e3/UL (1.80-7.80 X10e3/UL) ABSOLUTE LYMPHOCYTES2.30 X10e3/UL (1.00-3.00 X10e3/UL) ABSOLUTE MONOCYTES0.70 X10e3/UL (0.30-1.00 X10e3/UL) ABSOLUTE EOSINOPHILS0.10 X10e3/UL (0.00-0.50 X10e3/UL) ABSOLUTE BASOPHILS0.10 X10e3/UL (0.00-0.20 X10e3/UL)Urinalysis from 05/22/2015 7: 20 PMURINE COLORYELLOW (STRAW/YELL/DK YELL ) URINE APPEARANCECLEAR (CLEAR ) URINE PH6.5 (5.0-8.0 ) URINE SPECIFIC GRAVITY<1.005 (<=1.005->=1.030 ) URINE GLUCOSENEGATIVE MG/DL (NEGATIVE MG/DL) URINE BILIRUBINNEGATIVE (NEGATIVE ) URINE KETONESNEGATIVE MG/DL (NEGATIVE MG/DL) URINE BLOODNEGATIVE (NEGATIVE ) URINE PROTEINNEGATIVE MG/DL (NEGATIVE MG/DL) URINE UROBILINOGEN0.2 EU/DL (0.2-1.0 EU/DL) URINE NITRITESNEGATIVE (NEGATIVE ) *URINE LEUKOCYTESNEGATIVE (NEGATIVE )Coagulation from 05/22/2015 6:38 PMPROTHROMBIN TIME10.8 SECONDS (9.4-11.5 SECONDS) INR1.0 (0.9-1.1 ) PARTIAL THROMBOPLASTIN TIME27.4 SECONDS (23.0-31.0 SECONDS)CT Scan from 2014 6:05 PMCT CEREBRAL W/O CONTRASTHistory: Altered Mental Status . Priors: 04/28/15 Findings: Ventricles and Extra axial spaces: Mildly prominent, consistent with atrophy. Hemorrhage: None. Cerebral parenchyma: Scattered decreased attenuation in the periventricular white matter, most consistent with chronic small-vessel ischemic changes Mass effect/midline shift: None. Brainstem/Cerebellum: Normal. Calvarium: Normal. Visualized Paranasal sinuses/Mastoids: Partial opacification sphenoid sinus. Impression: No acute intracranial processes. Electronically signed by: Dre Busby MD Dictated: 05/23/2015 09:18 Problems Encounter Diagnosis No relevant problems exist. Encounters Encounter Diagnosis No relevant problems exist. Plan of Care Procedures Completed , on 10/22/2013 12:00 AM Immunizations No immunizations administered or ordered. Hospital Course Hospital Discharge Instructions Allergies, Adverse Reactions, Alerts Sulfa (Sulfonamide Antibiotics) causes Unknown.Effexor causes Unknown.Latex Allergy has not been assessed.IV Contrast Allergy has not been assessed. Medication Medication reconciliation has not been performed.
--- OUTSIDE RECORDS SUMMARY | 2017-12-04 14:30 | External Medical Summary | Summary of Care ---
:1940 Author Name Aruna Sanabria R.N. Address Unavailable Unavailable , Care Team Providers Name Role Phone Celestine Givens, Cole Thapa Unavailable Unavailable Carin Hawk Unavailable Unavailable Carlos [...] 1 Refills: 0 Carin Hawk Started 13-Sep-2015 [id number] GM Tube Allergies and Adverse Reactions Name [...] Administered on:05-Aug-2011 Influenza Administered on:23-Jun-2012 Lot #: [id number] Fluzone High-Dose Intramuscular Suspension Administered on:30-Jun-2013 Lot #: [id number] Fluzone High-Dose Intramuscular Suspension #1 Administered on:16-Jun-2014 Lot #: [id number] Fluzone High-Dose Intramuscular Suspension Administered on:09-Jun-2015 Lot #: [id number] Family History Grandmother Name Dates Details Family [...] Encounter Diagnosis: Problem not documented 14:15 Appointment; HumbleCarin chen On 18-Aug-2015 Encounter Diagnosis: Problem not documented [...]
--- OUTSIDE RECORDS SUMMARY | 2017-12-04 14:30 | External Medical Summary | Summary of Care ---
:1940 Author Name Cole Sprague M.D. Address [address] [place], [place] [address] Care Team Providers Name Role Phone Celestine Givens, Cole Thapa Unavailable Unavailable Jean Givens, Marv Unavailable Unavailable Danie Givens, Robinson Ribera Unavailable [...] of T12 vertebra (805.2, M48.54XA) Status: Active Osteopenia (733.90, M85.80) Status: Active [...] glucose (790.21, R73.01) Status: Active Anxiety (300.00, F41.1) Status: Active Chronic kidney disease, stage III (moderate) (585.3, N18.3) Status: Active Hypertension (401.9, I10) Status: Active Screening for colon cancer (V76.51, [...] by mouth every day Quantity: 30 Refills: 2 Carlos Jackson M.D. Started ActiveVitamin D 2000 UNIT Oral Tablet TAKE 2 TABLETS DAILY. Refills: 0 Carlos Jackson M.D. Started ActiveTylenol Arthritis Pain 8 Hour 650 MG TBCR Take 2 tablets every am Refills: 0 Carlos Jackson M.D. Started 12-Sep-2009 ActiveFluticasone Propionate 50 MCG/ACT Nasal Suspension SQUIRT 2 SPRAYS IN EACH NOSTRIL ONCE DAILY Quantity: 16 Refills: 5 Carlos Jackson M.D. Started 12-Sep-2009 ActiveXopenex 1.25 MG/3ML Inhalation Nebulization Solution USE 1 [...] Refills: 1 Cole Sprague M.D. Started 01-Feb-2014 [id number] GM Inhaler Voltaren 1 % Transdermal Gel APPLY DIRECTED TO AFFECTED AREA TID PRN Quantity: 1 Refills: 3 Carlos Jackson M.D. Started [id number] GM Tube Ibandronate Sodium 150 MG Oral Tablet TAKE 1 TABLET ONCE MONTHLY WITH 8 TO 10 OUNCES OF WATER. STAY UPRIGHT AND DO NOT EAT OR DRINK FOR 1HOUR. Quantity: 3 Refills: 3 Carlos Jackson M.D. Started ActiveCheratussin AC 100-10 MG/5ML Oral Syrup TAKE 1 TO 2 TEASPOONFUL BY MOUTH EVERY 4 TO 6 HOURS NEEDED FOR COUGH Quantity: 118 Refills: 0 Cole Sprague M.D. Started 18-Jan-2015 ActivePEG-3350/Electrolytes 236 GM Oral Solution Reconstituted MIX AND DRINK DIRECTED PER COLONOSCOPY INSTRUCTIONS. Quantity: 1 Refills: 0 Marv Pena M.D. Started [id number] ML Bottle Allergies and Adverse Reactions Name Dates Details Sonia GORDO Status: Active Effexor TABS Status: Active Sulfa [...] sinusitis (473.9, J32.9) Status: Resolved History of Dysuria (788.1, R30.0) [...] History of Spinal Percutaneous Vertebroplasty, Injection Thoracic Colonoscopy- Screening or Dx Ordered: CBC w/ Auto Diff 7150 Ordered: Comprehensive Metabolic Panel 1212 Ordered: LIPID PROFILE 1184 Ordered: THYROID STIM. HORMONE 3602 Ordered: Immunization Name Dates Details Pneumo (Pneumovax) Administered on:12-Jul-2008 Influenza Administered on:10-May-2009 Influenza A (H1N1) Monoval Vac Intramuscular Suspension Administered on:2009 Influenza A (H1N1) Monoval PF Intramuscular Suspension Administered on:2009 Influenza A (H1N1) Monoval Vac Intramuscular Suspension Administered on: Zoster (Zostavax) Administered on:05-Aug-2011 Influenza Administered on:23-Jun-2012 Lot #: [id number] Fluzone High-Dose Intramuscular Suspension Administered on:30-Jun-2013 Lot #: [id number] Fluzone High-Dose Intramuscular Suspension #1 Administered on:16-Jun-2014 Lot #: [id number] Family History Grandmother Name Dates Details Family history of Heart Disease (V17.49) Status: Active Family history of Hypertension (V17.49) Status: Active Mother Name Dates Details Family history of Breast Cancer (V16.3) Status: Active Social History Name Dates Details Smoking StatusNever smoker Vital Signs Date Test Result Details 14:47 BP Systolic 136 mm[Hg] Status: BP Diastolic 72 mm[Hg] Status: Heart Rate 73 /min Status: Respiration Rate 20 /min Status: Weight 131.6 lb Status: O2 SAT 99 % Status: Body Mass Index Calculated 22.59 kg/m2 Status: Body Surface Area Calculated 1.64 m2 Status: 10:02 BP Systolic 118 mm[Hg] Status: BP Diastolic 70 mm[Hg] Status: Heart Rate 76 /min Status: Weight 130.8 lb Status: Body Mass Index Calculated 22.45 kg/m2 Status: Body Surface Area Calculated 1.63 m2 Status: Results Date Description Value Details 09:17 BASIC METABOLIC PROFILE Comments: Fastin hours 1210 SODIUM 144 mmol/L Range: 133-144 (Better) POTASSIUM 3.8 mmol/L Range: 3.5-5.1 (Better) CHLORIDE 106 mmol/L Range: 98-110 (Better) CARBON DIOXIDE 27.0 mmol/L Range: 23.0-33.0 (Better) ANION GAP 11 mmol/L (Better) Range: 6-16 BUN 10 mg/dL (Better) Range: 7-18 CREATININE, SERUM 1.20 mg/dL (Above Range: 0.55-1.02 high threshold) Comments: Please note new reference ranges effective 01/28.----- EST GFR, 53 ml/min (Below Range: >60 low threshold) EST GFR, NON-AFR [place] 44 ml/min (Below Range: >60 low threshold) Comments: EST GFR is reported in ml/min per 1.73 m2 of body surface area. For -[place], please multiple result by 1.2.----- BUN:CREATININE RATIO 8 (Better) GLUCOSE 99 mg/dL (Better) Range: 70-100 CALCIUM 9.1 mg/dL (Better) Range: 8.5-10.1 09:23 CBC w/ Auto Diff 7150 Comments: Fastin hours WBC 6.8 K/uL (Better) Range: 4.5-11.0 RBC 4.07 mil/uL Range: 3.60-5.00 (Better) HGB 13.8 g/dL (Better) Range: 12.0-16.0 HCT 40.2 % (Better) Range: 36.0-48.0 MCV 98.8 fL (Better) Range: 80.0-99.0 MCH 33.8 pg (Above Range: 27.3-32.5 high threshold) MCHC 34.2 % (Better) Range: 32.0-36.0 RDW 14.3 % (Better) Range: 11.6-14.8 PLATELETS 272 K/uL (Better) Range: 150-400 MPV 7.2 fL (Better) Range: 6.0-11.0 %NEUTRO 50.8 % (Better) Range: 37.0-80.0 %LYMPHS 37.9 % (Better) Range: 13.0-50.0 %MONO 5.0 % (Better) Range: 0.0-12.0 %EOS 1.9 % (Better) Range: 0.0-7.0 %BASO 0.6 % (Better) Range: 0.0-2.5 %LISE 3.8 % (Better) Range: 0.0-5.0 NEUTRO 3.4 K/uL (Better) Range: 2.0-6.9 LYMPHS 2.6 K/uL (Better) Range: 0.6-3.4 MONOS 0.3 K/uL (Better) Range: 0.0-0.9 EOS 0.1 K/uL (Better) Range: 0.0-0.7 BASO 0.0 K/uL (Better) Range: 0.0-0.2 14:04 XRay CHEST-PA & LAT Comments: Exam Date: 2014 13:38Dictation Date: 04/06/2015 14:04 X CHEST PA & LAT (Better) Plan of Care Planned Observations Name Dates Details Planned Goals not documented Goal Planned Encounters Appointment; Provider: Cole Sprague On 04-Oct-2015 13:15 Appointment; Provider: Carlos Jackson On 20-Jul-2015 10:15 Appointment; Provider: Marv Pena On 13-Apr-2015 08:30 Appointment; Provider: Deacon Lopez On 13-Apr-2015 08:00 Appointment; Provider: Zenaida Maurice On 16-Oct-2008 12:15 [...] not documented Encounters Appointment; Cole Sprague On Encounter Diagnosis: Problem [...]
--- OUTSIDE RECORDS SUMMARY | 2017-12-04 14:31 | External Medical Summary | Summary of Care ---
:1940 Author Name Zachary Painter M.D. Address [address] [place], [place] [id number] Care Team Providers Name Role Phone Celestine [...] B 12 deficiency (266.2, E53.8) Status: Active Adverse effects of medication (995.20, T88.7XXA) Status: Active Medications Name Dates Details Pantoprazole [...] 1 Refills: 0 Carin Hawk Started 13-Sep-2015 [id number] GM Tube TraMADol HCl - 50 MG Oral Tablet TAKE 1 TABLET 4 TIMES DAILY NEEDED FOR PAIN. Quantity: 20 Refills: 0 Carlos Jackson M.D. Started 28-Nov-2015 ActivePromethazine-Codeine 6.25-10 MG/5ML Oral Syrup TAKE ONE TEASPOONFUL BY MOUTH EVERY FOUR HOURS NEEDED FOR COUGH Quantity: 120 Refills: 0 Carlos Jackson M.D. Started 18-Aug-2015 Active Allergies and Adverse Reactions Name Dates Details Harishillary CARO Status: Active Effexor TABS Status: Active [...] Administered on:05-Aug-2011 Influenza Administered on:23-Jun-2012 Lot #: [id number] Fluzone High-Dose Intramuscular Suspension Administered on:30-Jun-2013 Lot #: [id number] Fluzone High-Dose Intramuscular Suspension #1 Administered on:16-Jun-2014 Lot #: [id number] Fluzone High-Dose Intramuscular Suspension Administered on:09-Jun-2015 Lot #: [id number] Family History Grandmother Name Dates Details Family [...] smoker Vital Signs Date Test Result Details 29-Jan-2016 08:21 BP Systolic 128 mm[Hg] Status: [...] Zachary Painter On 24-Jul-2016 09:15 Appointment; Provider: Cole Sprague On 11:30 Appointment; Provider: Carlos Jackson On 15:30 Appointment; Provider: Schedule Radiology On 06-Dec-2015 15:00 [...] not documented Encounters Appointment; Zachary Painter On 29-Jan-2016 Encounter Diagnosis: [...]
--- OUTSIDE RECORDS SUMMARY | 2017-12-04 14:31 | External Medical Summary | Summary of Care ---
:1940 Author Name Carlos Jackson M.D. Address [address] [place], [place] [id number] Care Team Providers Name Role Phone Celestine Givens, Cole Thapa Unavailable Unavailable Nadir Muñoz, Konrad Unavailable Unavailable Rakesh Muñoz, Torres Thapa Unavailable Unavailable Renetta Givens, Carlos Anderson Unavailable [...] of left wrist (923.21, S60.212A) Status: Active Osteoarthritis (715.90, M19.90) Status: Active Tremor (781.0, R25.1) Status: Active Sebaceous cyst (706.2, L72.3) Status: Active Cough (786.2, R05) Status: Active Hyperlipidemia (272.4, E78.5) Status: Active Impaired fasting glucose (790.21, R73.01) Status: Active Screening for colon cancer (V76.51, Z12.11) Status: Active Asthma (493.90, J45.909) Status: Active Chronic obstructive pulmonary disease (496, J44.9) Status: Active Contusion of chest wall, right, initial encounter (922.1, S20.211A) Status: Active Contusion of forehead, initial encounter (920, S00.83XA) Status: Active Strain of right hip, initial encounter (843.9, S76.011A) Status: Active Osteopenia (733.90, M85.80) Status: Active Hypertension (401.9, I10) Status: Active Essential and other specified forms of tremor (333.1, G25.0) Status: Active Anxiety (300.00, F41.9) Status: Active Depression (311, F32.9) Status: Active Chronic kidney disease, stage III (moderate) (585.3, N18.3) Status: Active Vitamin B 12 deficiency (266.2, E53.8) Status: Active Acute sinusitis (461.9, J01.90) Status: Active Post-concussional syndrome (310.2, F07.81) Status: Active Closed head injury (959.01, S09.90XA) Status: Active Confusion (298.9, R41.0) Status: Active Transient disorientation (780.99, R41.0) Status: Active Fall (E888.9, W19.XXXA) Status: Active Memory loss (780.93, R41.3) Status: Active Sea sickness (994.6, T75.3XXA) Status: Active Medications Name Dates Details Pantoprazole Sodium 40 MG Oral Tablet Delayed Release TAKE 1 TABLET BY MOUTH TWICE A DAY 30 MINUTES BEFORE BREAKFAST & DINNER Quantity: 60 Refills: 6 Cole Sprague M.D. Started 04-Feb-2008 ActiveVitamin D-3 1000 UNIT Oral Capsule take 1 capsule daily Quantity: 1 Refills: 0 Torres Cameron D.O. Started 19-May-2015 ActiveCalcium 1500 MG Oral Tablet TAKE 1 TABLET DAILY. Refills: 0 Konrad Schmitz D.O. Started 26-May-2015 ActiveVoltaren 1 % Transdermal Gel APPLY DIRECTED TO AFFECTED AREA THREE TIMES A DAY NEEDED Quantity: 100 Refills: 0 Carlos Jackson M.D. Started ActiveCyanocobalamin 1000 MCG/ML Injection Solution Inject 1 ml once weekly x6 then monthly thereafter Refills: 0 Carlos Jackson M.D. Started 09-Jun-2015 ActiveFluticasone Propionate 50 MCG/ACT Nasal Suspension USE 1 TO 2 SPRAYS IN EACH NOSTRIL ONCE DAILY. Refills: 0 Carlos Jackson M.D. Started 16-Jun-2015 ActiveTransderm-Scop 1 MG/3DAYS Transdermal Patch 72 Hour Apply patch every 3 days Quantity: 1 Refills: 0 Carlos Jackson M.D. Started 16-Jun-2015 Active4 Patch 72 Hour Box Allergies and Adverse Reactions Name Dates Details Harishillary CARO Status: Active Effexor TABS Status: Active Sulfa Drugs Status: Active Past Medical History Name Dates Details History of abdominal pain (V1., Z87.898) Status: Resolved History of acute bronchitis [...] Administered on:05-Aug-2011 Influenza Administered on:23-Jun-2012 Lot #: [id number] Fluzone High-Dose Intramuscular Suspension Administered on:30-Jun-2013 Lot #: [id number] Fluzone High-Dose Intramuscular Suspension #1 Administered on:16-Jun-2014 Lot #: [id number] Fluzone High-Dose Intramuscular Suspension Administered on:09-Jun-2015 Lot #: [id number] Family History Grandmother Name Dates Details Family history of Heart Disease (V17.49) Status: Active Family history of Hypertension (V17.49) Status: Active Mother Name Dates Details Family history of Breast Cancer (V16.3) Status: Active Social History Name Dates Details Smoking StatusNever smoker Vital Signs Date Test Result Details 16-Jun-2015 10:46 BP Systolic 124 mm[Hg] Status: BP Diastolic 70 mm[Hg] Status: Heart Rate 76 /min Status: Weight 127 lb Status: Body Mass Index Calculated 21.8 kg/m2 Status: Body Surface Area Calculated 1.61 m2 Status: 26-May-2015 10:22 BP Systolic 130 mm[Hg] Status: BP Diastolic 80 mm[Hg] Status: Heart Rate 64 /min Status: Weight 124 lb Status: Body Mass Index Calculated 21.28 kg/m2 Status: Body Surface Area Calculated 1.6 m2 Status: 19-May-2015 11:42 BP Systolic 141 mm[Hg] Status: BP Diastolic 91 mm[Hg] Status: Temperature 98.1 f Status: Heart Rate 94 /min Status: O2 SAT 98 % Status: Results Date Description Value Details 19-May-2015 12:39 CT HEAD WITHOUT IV Comments: Exam Date: 05/19/2015 12: 20Dictation Date: 05/19/2015 12:39 CONTRAST XC HEAD (Better) 13:13 VITAMIN B12 3606 Comments: Items were attached to this order: Extra Tube VITAMIN B12 298 pg/mL Range: 211-911 (Better) 13:13 FOLATE 3608 Comments: Items were attached to this order: Extra Tube FOLATE >20 ng/mL Range: 5.4-20.3 (Above high threshold) 13:13 FREE T4 3604 Comments: Items were attached to this order: Extra Tube FREE T4 1.46 ng/dL Range: 0.80-1.67 (Better) 13:13 THYROID STIM. HORMONE Comments: Items were attached to this order: Extra Tube 3602 THYROID STIM. HORMONE 1.027 uIU/mL Range: 0.550-4.780 (Better) Comments: No established reference ranges for infants and children <2 years of age----- 13:12 Vitamin D, 25 - Hydroxy Comments: Items were attached to this order : Extra Tube 3111 VITAMIN D, 25-HYDROXY 33 ng/mL (Better) Range: 30-100 26-May-2015 14:28 MRI BRAIN WITHOUT AND Comments: Exam Date: 05/26/2015 13 :07Dictation Date: 05/26/2015 14:28 WITH CONTRAST XMR BRAIN WO/W RONALD (Better) 05-Jun-2015 11:18 ULTRASOUND CAROTID Comments: Exam Date: 06/05/2015 10: 47Dictation Date: 06/05/2015 11:18 XS CAROTID (Better) Plan of Care Planned Observations Name Dates Details Planned Goals not documented Goal Planned Encounters Appointment; Provider: Cole Sprague On 04-Oct-2015 13:15 Appointment; Provider: Zachary Painter On 07-Aug-2015 11:00 Appointment; Provider: Carlos Jackson On 20-Jul-2015 10:15 Appointment; Provider: Carlos Jackson On 23-Jun-2015 07:30 Appointment; Provider: Schedule Radiology On 05-Jun-2015 11:00 [...] not documented Encounters Appointment; Carlos Jackson On 16-Jun-2015 Encounter Diagnosis: [...]
--- OUTSIDE RECORDS SUMMARY | 2017-12-04 14:31 | External Medical Summary | Summary of Care ---
[...] 0 Carlos Jackson M.D. Start 16-Jun-2015 Active Cetirizine HCl - 10 MG Oral Tablet Refills: 0 Start 02-Feb-2016 Active Promethazine-Codeine 6.25-10 MG/5ML Oral Syrup TAKE 1 OR 2 TEASPOONFUL(S) BY MOUTH EVERY 4 TO 6 HOURS NEEDED Quantity: 180 Refills: 0 Cole Sprague M.D. Start 02-Oct-2016 Active Cyanocobalamin 2500 MCG Sublingual Tablet Sublingual Take one daily Quantity: 100 Refills: 2 Carlos Jackson M.D. Start 02-Oct-2016 Active Mupirocin 2 % External Ointment APPLY A SMALL AMOUNT 3 TIMES DAILY DIRECTED. Quantity: 1 Refills: 0 Carin Hawk Start 13-Sep-2015 Active 22 GM Tube Cyanocobalamin 1000 MCG/ML Injection Solution INJECT 1 ML INTRAMUSCULARLY ONCE A MONTH Refills: 0 Carlos Jackson M.D. Start 23-Aug-2015 Active Allergies and Adverse Reactions Name [...] Cataract Extract With Prosthesis Insert Right Eye Comprehensive Metabolic Panel 1212 Ordered: 03-Oct-2016 LIPID PROFILE 1184 Ordered: 03-Oct-2016 THYROID STIM. HORMONE 3602 Ordered: 03-Oct-2016 CBC w/ Auto Diff 7150 Ordered: 03-Oct-2016 VITAMIN B12 3606 Ordered: 03-Oct-2016 BASIC METABOLIC PROFILE 1210 Ordered: 03-Oct-2016 Immunization Name Dates Details Pneumo (Pneumovax) on: 12-Jul-2008 Influenza on: 10-May-2009 Influenza A (H1N1) Monoval Vac SUSP on: 12-Sep-2009 Influenza A (H1N1) Monoval PF SUSP on: 08-Jun-2010 Influenza A (H1N1) Monoval Vac SUSP on: 19-Jun-2011 Zoster (Zostavax) on: 05-Aug-2011 Influenza on: 23-Jun-2012 Lot #: [id number] Fluzone High-Dose SUSP on: 30-Jun-2013 Lot #: [id number] Fluzone High-Dose SUSP #1 on: 16-Jun-2014 Lot #: [id number] Fluzone High-Dose SUSP on: 09-Jun-2015 Lot #: [id number] Fluzone Quadrivalent 0.5 ML Intramuscular Suspension on: 15-May-2016 Lot #: [id number] Prevnar 13 Intramuscular Suspension on: 02-Oct-2016 Lot #: [id number] Family History Grandmother Name Dates Details Family [...] low Range: >60 threshold) EST GFR, NON-AFR [place] 49 ml/min (Below low Range: >60 threshold) [...]
--- OUTSIDE RECORDS SUMMARY | 2017-12-04 14:31 | External Medical Summary | Summary of Care ---
:1940 Author Name Carin Hawk Address [address] [place] [address] Care Team Providers Name Role Phone Celestine [...] 1 Refills: 0 Carin Hawk Started 18-Aug-2015 [id number] ML Bottle Allergies and Adverse Reactions Name [...] Administered on:05-Aug-2011 Influenza Administered on:23-Jun-2012 Lot #: [id number] Fluzone High-Dose Intramuscular Suspension Administered on:30-Jun-2013 Lot #: [id number] Fluzone High-Dose Intramuscular Suspension #1 Administered on:16-Jun-2014 Lot #: [id number] Fluzone High-Dose Intramuscular Suspension Administered on:09-Jun-2015 Lot #: [id number] Family History Grandmother Name Dates Details Family [...] Encounter Diagnosis: Problem not documented 14:00 Appointment; Nicoal Rosado On 16-Jun-2014 Encounter Diagnosis: Problem not [...]
--- OUTSIDE RECORDS SUMMARY | 2017-12-04 14:32 | External Medical Summary | Summary of Care ---
:1940 Author Name Carlos Jackson M.D. Address [address] [place], [place] [address] Care Team Providers Name Role Phone Celestine [...] Status: Active Osteopenia (733.90, M85.80) Status: Active Essential and other specified forms of tremor (333.1, G25.0) Status: Active Anxiety (300.00, F41.9) Status: Active Depression (311, F32.9) Status: Active Chronic kidney disease, stage III (moderate) (585.3, N18.3) Status: Active Acute sinusitis (461.9, J01.90) Status: Active Post-concussional syndrome (310.2, F07.81) Status: Active Fall (E888.9, W19.XXXA) Status: Active History of Closed head injury (959.01, S09.90XA) Status: Resolved History of Memory loss (780.93, R41.3) Status: Resolved Sea sickness (994.6, T75.3XXA) Status: Active History of Confusion (298.9, R41.0) Status: Resolved History of Contusion of forehead, initial encounter (920, S00.83XA) Status: Resolved Hypertension (401.9, I10) Status: Active Vitamin B 12 deficiency (266.2, E53.8) Status: Active Chronic obstructive pulmonary disease (496, J44.9) Status: Active Transient disorientation (780.99, R41.0) Status: Active Medications Name Dates Details Pantoprazole Sodium 40 MG Oral Tablet Delayed Release TAKE 1 TABLET BY MOUTH TWICE A DAY 30 MINUTES BEFORE BREAKFAST & DINNER Quantity: 60 Refills: 6 Cole Sprague M.D. Started 04-Feb-2008 ActiveVoltaren 1 % Transdermal Gel APPLY DIRECTED TO AFFECTED AREA THREE TIMES A DAY NEEDED Quantity: 100 Refills: 0 Carlos Jackson M.D. Started ActiveVitamin D-3 1000 UNIT Oral Capsule take 1 capsule daily Quantity: 1 Refills: 0 Torres Cameron D.O. Started 19-May-2015 ActiveCalcium 1500 MG Oral Tablet TAKE 1 TABLET DAILY. Refills: 0 Konrad Schmitz D.O. Started 26-May-2015 ActiveCyanocobalamin 1000 MCG/ML Injection Solution Inject 1 [...] Administered on:05-Aug-2011 Influenza Administered on:23-Jun-2012 Lot #: [id number] Fluzone High-Dose Intramuscular Suspension Administered on:30-Jun-2013 Lot #: [id number] Fluzone High-Dose Intramuscular Suspension #1 Administered on:16-Jun-2014 Lot #: [id number] Fluzone High-Dose Intramuscular Suspension Administered on:09-Jun-2015 Lot #: [id number] Family History Grandmother Name Dates Details Family [...] Carlos Jackson On 23-Aug-2015 14:15 Appointment; Provider: Zachary Painter On 07-Aug-2015 11:00 Appointment; Provider: Carlos Jackson On 17-Jul-2015 08:00 Appointment; Provider: Schedule Radiology On 05-Jun-2015 11:00 [...] Diagnosis: Problem not documented 10:45 Appointment; Carlos Jacksno On 25-Oct-2013 Encounter Diagnosis: Problem not documented 13:45 Appointment; Kyle Hoang On 18-Oct-2013 Encounter Diagnosis: Problem not documented 13:15 Appointment; Cole Sprague On 07-Oct-2013 Encounter Diagnosis: Problem not documented 15:00 Appointment; Carlos Jackson On 30-Jun-2013 Encounter Diagnosis: Problem not documented 10:30
--- OUTSIDE RECORDS SUMMARY | 2017-12-04 14:32 | External Medical Summary | Summary of Care ---
[...] Status: Resolved Hypercholesterolemia (272.0, E78.00) Status: Active Pseudophakia of left eye (V43.1, [...] stage 3 (moderate) (585.3, N18.3) Status: Active Vitamin B 12 deficiency (266.2, E53.8) Status: Active Fall with injury, subsequent encounter (E888.9, W19.XXXD) Status: Active Parkinson's disease (332.0, G20) Status: Active Laceration of head (873.8, S01.91XA) Status: Active Closed head injury, subsequent encounter (V58.89, S09.90XD) Status: Active Anxiety (300.00, F41.9) Status: Active Medications Name Dates Details Sertraline [...] Allergies and Adverse Reactions Name Dates Details Noreena ESTELLEU (Allergy) Status: Active Effexor TABS (Allergy) Status: [...] on: 05-Aug-2011 Influenza on: 23-Jun-2012 Lot #: [id number] Fluzone High-Dose SUSP on: 30-Jun-2013 Lot #: [id number] Fluzone High-Dose SUSP #1 on: 16-Jun-2014 Lot #: [id number] Fluzone High-Dose SUSP on: 09-Jun-2015 Lot #: [id number] Fluzone Quadrivalent 0.5 ML Intramuscular Suspension on: 15-May-2016 Lot #: [id number] Prevnar 13 Intramuscular Suspension on: 02-Oct-2016 Lot #: [id number] Family History Grandmother Name Dates Details Family [...] smoker Vital Signs Date Test Result Details 11:41 BP Systolic 132 mm[Hg] Status: Comments: [...] low Range: >60 threshold) EST GFR, NON-AFR [place] 49 ml/min (Below low Range: >60 threshold) [...] Encounter Diagnosis: Problem not documented 10:00 Appointment; Carlos Jackson M.D. On 02-Oct-2016 Encounter [...]
--- OUTSIDE RECORDS SUMMARY | 2017-12-04 14:32 | External Medical Summary | Summary of Care ---
:1940 Author Name Carlos Jackson M.D. Address [address] Unavailable [place], [place] [id number] Care Team Providers Name Role Phone Celestine [...] Active Anxiety (300.00, F41.1) Status: Active Chronic obstructive pulmonary disease (496, J44.9) Status: Active Asthma (493.90, J45.909) Status: Active Chronic kidney disease, stage III (moderate) (585.3, N18.3) Status: Active Hypertension (401.9, I10) Status: Active Screening for colon cancer (V76.51, Z12.11) Status: Active Medications Name Dates Details Pantoprazole [...] Refills: 1 Cole Sprague M.D. Started 01-Feb-2014 [id number] GM Inhaler Voltaren 1 % Transdermal Gel APPLY DIRECTED TO AFFECTED AREA TID PRN Quantity: 1 Refills: 3 Carlos Jackson M.D. Started [id number] GM Tube Ibandronate Sodium 150 MG Oral [...] 1 Refills: 0 Marv Pena M.D. Started [id number] ML Bottle Allergies and Adverse Reactions Name [...] Injection Thoracic Colonoscopy- Screening or Dx Ordered: Immunization Name Dates Details Pneumo (Pneumovax) Administered on:12-Jul-2008 Influenza Administered on:10-May-2009 Influenza A (H1N1) Monoval Vac Intramuscular Suspension Administered on:2009 Influenza A (H1N1) Monoval PF Intramuscular Suspension Administered on:2009 Influenza A (H1N1) Monoval Vac Intramuscular Suspension Administered on: Zoster (Zostavax) Administered on:05-Aug-2011 Influenza Administered on:23-Jun-2012 Lot #: [id number] Fluzone High-Dose Intramuscular Suspension Administered on:30-Jun-2013 Lot #: [id number] Fluzone High-Dose Intramuscular Suspension #1 Administered on:16-Jun-2014 Lot #: [id number] Family History Grandmother Name Dates Details Family history of Heart Disease (V17.49) Status: Active Family history of Hypertension (V17.49) Status: Active Mother Name Dates Details Family history of Breast Cancer (V16.3) Status: Active Social History Name Dates Details Smoking StatusNever smoker Vital Signs Date Test Result Details 10:02 BP Systolic 118 mm[Hg] Status: BP [...] Range: >60 low threshold) EST GFR, NON-AFR ETHIOPIAN 44 ml/min (Below Range: >60 low threshold) Comments: EST GFR is reported in ml/min per 1.73 m2 of body surface area. For -Serbian, please multiple result by 1.2.----- BUN:CREATININE RATIO [...] 0.0-0.7 BASO 0.0 K/uL (Better) Range: 0.0-0.2 Plan of Care Planned Observations Name Dates Details Planned Goals not documented Goal Planned Encounters Appointment; Provider: Carlos Jackson On 20-Jul-2015 10:15 Appointment; Provider: Marv Pena On 13-Apr-2015 08:30 Appointment; Provider: Deacon Lopez On 13-Apr-2015 08:00 Appointment; Provider: Cole Sprague On 14:00 Appointment; Provider: Zenaida Maurice On 16-Oct-2008 [...]
--- OUTSIDE RECORDS SUMMARY | 2017-12-04 14:32 | External Medical Summary | Summary of Care ---
:1940 Author Name Zachary Painter M.D. Address [address], [place] [id number] Care Team Providers Name Role Phone Celestine Givens, Cole Thapa Unavailable Unavailable Nadir Muñoz, Konrad Unavailable Unavailable Rakesh Muñoz, Torres Tahpa Unavailable Unavailable Renetta Givens, Carlos Anderson Unavailable [...] Active Transient disorientation (780.99, R41.0) Status: Active Post-concussional syndrome (310.2, F07.81) Status: Active History of Memory loss (780.93, R41.3) Status: Resolved Essential and other specified forms of tremor (333.1, G25.0) Status: Active History of Confusion (298.9, R41.0) Status: Resolved Vitamin B 12 deficiency (266.2, E53.8) Status: Active Medications Name Dates Details Pantoprazole [...] Refills: 0 Carlos Jackson M.D. Started 16-Jun-2015 Active Allergies and Adverse Reactions Name Dates [...] fever (V13.89, Z87.898) Status: Resolved History of headache (V13.89, Z87.898) Status: Resolved History of Long-term [...] Administered on:05-Aug-2011 Influenza Administered on:23-Jun-2012 Lot #: [id number] Fluzone High-Dose Intramuscular Suspension Administered on:30-Jun-2013 Lot #: [id number] Fluzone High-Dose Intramuscular Suspension #1 Administered on:16-Jun-2014 Lot #: [id number] Fluzone High-Dose Intramuscular Suspension Administered on:09-Jun-2015 Lot #: [id number] Family History Grandmother Name Dates Details Family [...] smoker Vital Signs Date Test Result Details 17-Jul-2015 14:51 BP Systolic 126 mm[Hg] Status: BP Diastolic 72 mm[Hg] Status: Heart Rate 78 /min Status: Height 64 in Status: Weight 128.0 lb Status: Body Mass Index Calculated 21.97 kg/m2 Status: Body Surface Area Calculated 1.62 m2 Status: Results Date Description Value Details Results not documented Plan of Care Planned Observations Name Dates Details Planned Goals not documented Goal Planned Encounters Appointment; Provider: Cole Sprague On 04-Oct-2015 13:15 Appointment; Provider: Carlos Jackson On 23-Aug-2015 14:15 Appointment; Provider: Zachary Painter On 17-Aug-2015 10:45 Appointment; Provider: Schedule Radiology On 05-Jun-2015 11:00 [...] not documented Encounters Appointment; Zachary Painter On 17-Jul-2015 Encounter Diagnosis: [...] Diagnosis: Problem not documented 14:00 Appointment; Deacon gN On 26-May-2014 Encounter Diagnosis: Problem not documented 08:45 Appointment; Coel Sprague On Encounter Diagnosis: Problem not documented [...]
--- OUTSIDE RECORDS SUMMARY | 2017-12-04 14:33 | External Medical Summary | Summary of Care ---
:1940 Author Name Carlos Jackson M.D. Address Unavailable Unavailable , Care Team Providers Name Role Phone Celestine Givens, Cole Thapa Unavailable Unavailable Widapril Carin Unavailable Unavailable Carlos Jackson M.D. Unavailable Unavailable [...] one daily Quantity: 100 Refills: 2 Carlos Jcakson M.D. Start 02-Oct-2016 Active Allergies and Adverse [...] on: 05-Aug-2011 Influenza on: 23-Jun-2012 Lot #: [id number] Fluzone High-Dose SUSP on: 30-Jun-2013 Lot #: [id number] Fluzone High-Dose SUSP #1 on: 16-Jun-2014 Lot #: [id number] Fluzone High-Dose SUSP on: 09-Jun-2015 Lot #: [id number] Fluzone Quadrivalent 0.5 ML Intramuscular Suspension on: 15-May-2016 Lot #: [id number] Prevnar 13 Intramuscular Suspension on: 02-Oct-2016 Lot #: [id number] Family History Grandmother Name Dates Details Family [...] low Range: >60 threshold) EST GFR, NON-AFR AUSTRIAN 49 ml/min (Below low Range: >60 threshold) [...] M.D. On 07-Oct-2016 10:00 Interventions Provided Medication ChangesCyanocobalamin 2500 MCG Sublingual Tablet Sublingual - Start Medications/Immunizations AdministeredPrevnar 13 Intramuscular Suspension; Done : 02 Oct 2016 Instructions Name Dates Details Instructions not documented Encounters Appointment; Cole Sprague M.D. On 02-Oct-2016 Encounter [...] Diagnosis: Problem not documented 11:45 Appointment; Carlos Jacskon M.D. On 01-May-2015 Encounter Diagnosis: Problem not [...]
--- OUTSIDE RECORDS SUMMARY | 2017-12-04 14:33 | External Medical Summary | Summary of Care ---
:1940 Author Name Carlos Jackson M.D. Address [address], [place] [id number] Care Team Providers Name Role Phone Celestine Givens, Cole Thapa Unavailable Unavailable Nadir Muñoz, Konrad Unavailable Unavailable WidCarin chen Unavailable Unavailable Renetta Givens, Carlos Anderson Unavailable [...] Refills: 6 Cole Sprague M.D. Started 04-Feb-2008 ActiveCalcium 1500 MG TABS TAKE 1 TABLET [...] 1 Refills: 0 Carin Hawk Started 18-Aug-2015 [id number] ML Bottle Voltaren 1 % Transdermal Gel APPLY DIRECTED TO AFFECTED AREA THREE TIMES A DAY NEEDED Quantity: 100 Refills: 0 Carlos Jackson M.D. Started Active Allergies and Adverse Reactions Name Dates [...] Administered on:05-Aug-2011 Influenza Administered on:23-Jun-2012 Lot #: [id number] Fluzone High-Dose Intramuscular Suspension Administered on:30-Jun-2013 Lot #: [id number] Fluzone High-Dose Intramuscular Suspension #1 Administered on:16-Jun-2014 Lot #: [id number] Fluzone High-Dose Intramuscular Suspension Administered on:09-Jun-2015 Lot #: [id number] Family History Grandmother Name Dates Details Family [...]
--- OUTSIDE RECORDS SUMMARY | 2017-12-04 14:33 | External Medical Summary | Summary of Care ---
:1940 Author Name Carlos Jackson M.D. Address Unavailable Unavailable , Care Team Providers Name Role Phone Celestine Givens, Cole Thapa Unavailable Unavailable WidCarin chen Unavailable Unavailable Renetta [...] Depression (311, F32.9) Status: Active Chronic kidney disease (CKD), stage [...] Status: Active Asthma (493.90, J45.909) Status: Active Medications Name Dates Details Sertraline HCl - 100 MG Oral Tablet take 1 tablet by mouth every day Quantity: 30 Refills: 0 Carlos Jackson M.D. Start 29-Oct-2016 Active Cetirizine HCl - 10 MG Oral [...] 2 Carlos Jackson M.D. Start 02-Oct-2016 Active Dexamethasone 4 MG Oral Tablet 8mg x 5 days, 6mg x 5 days, 4mg x 5 days, 2mg x 5 days Quantity: 25 Refills: 0 Cole Sprague M.D. Start 03-Dec-2016 Active Voltaren 1 % Transdermal Gel APPLY DIRECTED TO AFFECTED AREA THREE TIMES A DAY NEEDED Quantity: 100 Refills: 0 Carlos Jackson M.D. Start Active Cyanocobalamin 1000 MCG/ML Injection Solution INJECT 1 ML INTRAMUSCULARLY ONCE A MONTH Refills: 0 Carlos Jackson M.D. Start 23-Aug-2015 Active Promethazine-Codeine 6.25-10 MG/5ML Oral Syrup TAKE 1 OR 2 TEASPOONFUL(S) BY MOUTH EVERY 4 TO 6 HOURS NEEDED Quantity: 180 Refills: 0 Cole Sprague M.D. Start 02-Oct-2016 Active Fluticasone Propionate 50 MCG/ACT Nasal Suspension SQUIRT 2 SPRAYS IN EACH NOSTRIL ONCE DAILY Quantity: 16 Refills: 11 Cole Sprague M.D. Start 12-Sep-2009 Active Allergies and Adverse Reactions Name Dates Details Sonia NEBU (Allergy) Status: Active Effexor TABS (Allergy) [...] on: 05-Aug-2011 Influenza on: 23-Jun-2012 Lot #: [id number] Fluzone High-Dose SUSP on: 30-Jun-2013 Lot #: [id number] Fluzone High-Dose SUSP #1 on: 16-Jun-2014 Lot #: [id number] Fluzone High-Dose SUSP on: 09-Jun-2015 Lot #: [id number] Fluzone Quadrivalent 0.5 ML Intramuscular Suspension on: 15-May-2016 Lot #: [id number] Prevnar 13 Intramuscular Suspension on: 02-Oct-2016 Lot #: [id number] Family History Grandmother Name Dates Details Family [...] smoker Vital Signs Date Test Result Details 28-Nov-2016 09:04 BP Systolic 118 mm[Hg] Status: Comments: Location: ; Position: BP Diastolic 84 mm[Hg] Status: Comments: Location: ; Position: Temperature 98.4 f Status: Comments: Method: Heart Rate 78 /min Status: Comments: Location: ; Height 64 in Status: Weight 119 lb Status: Physical Findings 97 Status: Comments: O2 Saturation Body Mass Index Calculated 20.43 kg/m2 Status: Body Surface Area Calculated 1.57 m2 Status: Results Date Description Value Details Results not documented Plan of Care Name Dates Details Planned [...] documented Encounters Appointment; Carlos Jackson M.D. On 15-May-2016 Encounter [...]
--- OUTSIDE RECORDS SUMMARY | 2017-12-04 14:33 | External Medical Summary | Summary of Care ---
:1940 Author Name Carlos Jackson M.D. 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 Started ActiveCetirizine HCl - 10 MG Oral Tablet Refills: 0 Started 02-Feb-2016 ActiveFluticasone Propionate 50 MCG/ACT Nasal Suspension USE 1 TO 2 SPRAYS IN EACH NOSTRIL ONCE DAILY. Refills: 0 Carlos Jackson M.D. Started 16-Jun-2015 ActiveMupirocin 2 % External Ointment APPLY A SMALL AMOUNT 3 TIMES DAILY DIRECTED. Quantity: 1 Refills: 0 Carin Hawk Started 13-Sep-2015 [id number] GM Tube Voltaren 1 % Transdermal Gel APPLY DIRECTED TO AFFECTED AREA THREE TIMES A DAY NEEDED Quantity: 100 Refills: 0 Carlos Jackson M.D. Started ActiveCyanocobalamin 1000 MCG/ML Injection Solution INJECT 1 ML INTRAMUSCULARLY ONCE A MONTH Refills: 0 Carlos Jackson M.D. Started 23-Aug-2015 ActivePantoprazole Sodium 40 MG Oral Tablet Delayed Release TAKE 1 TABLET BY MOUTH TWICE A DAY 30 MINUTES BEFORE BREAKFAST & DINNER Quantity: 60 Refills: 6 Cole Sprague M.D. Started 04-Feb-2008 Active Allergies and Adverse Reactions Name Dates [...] History of Spinal Percutaneous Vertebroplasty, Injection Thoracic ECG/ EKG Preop Pendin02-Feb-2016 BASIC METABOLIC PROFILE 1210 Ordered:02-Feb-2016 CBC w/ Auto Diff 7150 Ordered:02-Feb-2016 XRay CHEST-PA & LAT Ordered:02-Feb-2016 Immunization Name Dates Details Pneumo (Pneumovax) Administered on:12-Jul-2008 Influenza Administered on:10-May-2009 Influenza A (H1N1) Monoval Vac Intramuscular Suspension Administered on:2009 Influenza A (H1N1) Monoval PF Intramuscular Suspension Administered on:2009 Influenza A (H1N1) Monoval Vac Intramuscular Suspension Administered on: Zoster (Zostavax) Administered on:05-Aug-2011 Influenza Administered on:23-Jun-2012 Lot #: [id number] Fluzone High-Dose Intramuscular Suspension Administered on:30-Jun-2013 Lot #: [id number] Fluzone High-Dose Intramuscular Suspension #1 Administered on:16-Jun-2014 Lot #: [id number] Fluzone High-Dose Intramuscular Suspension Administered on:09-Jun-2015 Lot #: [id number] Family History Grandmother Name Dates Details Family [...] Cole Sprague On 11:30 Appointment; Provider: Marv Meraz On 09:00 Appointment; Provider: Marv Meraz On 08:15 Appointment; Provider: Marv Meraz On 09:30 Appointment; Provider: Marv Meraz On 13:30 Appointment; Provider: Marv Meraz On 08:15 Appointment; Provider: Marv Meraz On 09:30 Appointment; Provider: Marv Meraz On 09:00 Appointment; Provider: Carlos Jackson On 09:45 Appointment; Provider: [facility] On 06-Dec-2015 15:00 [...] 14:00 Instructions Instructions not documented Encounters Appointment; Marv Meraz On 02-Feb-2016 Encounter Diagnosis: Problem not documented [...]
--- OUTSIDE RECORDS SUMMARY | 2017-12-04 14:34 | External Medical Summary | Summary of Care ---
:1940 Author Name Carlos Jackson M.D. Address [address], [place] [id number] Care Team Providers Name Role Phone Cole [...] Status : Active Medications Name Dates Details Pantoprazole Sodium [...] 1 Refills: 0 Carin Hawk Started 13-Sep-2015 [id number] GM Tube Cetirizine HCl - 10 MG [...] Administered on:05-Aug-2011 Influenza Administered on:23-Jun-2012 Lot #: [id number] Fluzone High-Dose Intramuscular Suspension Administered on:30-Jun-2013 Lot #: [id number] Fluzone High-Dose Intramuscular Suspension #1 Administered on:16-Jun-2014 Lot #: [id number] Fluzone High-Dose Intramuscular Suspension Administered on:09-Jun-2015 Lot #: [id number] Family History Grandmother Name Dates Details Family [...] Zenaida Maurice On 15-Oct-2008 12:45 Appointment; Provider: Zeanida Maurice On 09-Sep-2008 09:45 Appointment; Provider: Zenaida [...]
--- OUTSIDE RECORDS SUMMARY | 2017-12-04 14:34 | External Medical Summary | Summary of Care ---
:1940 Author Name Zachary Painter M.D. Address [address], [place] [id number] Care Team Providers Name Role Phone Celestine [...] Administered on:05-Aug-2011 Influenza Administered on:23-Jun-2012 Lot #: [id number] Fluzone High-Dose Intramuscular Suspension Administered on:30-Jun-2013 Lot #: [id number] Fluzone High-Dose Intramuscular Suspension #1 Administered on:16-Jun-2014 Lot #: [id number] Fluzone High-Dose Intramuscular Suspension Administered on:09-Jun-2015 Lot #: [id number] Family History Grandmother Name Dates Details Family [...] smoker Vital Signs Date Test Result Details 17-Aug-2015 10:48 BP Systolic 122 mm[Hg] Status: [...] Zachary Painter On 20-Dec-2015 08:15 Appointment; Provider: Cloe Sprague On 04-Oct-2015 13:15 Appointment; Provider: Carlos [...] not documented Encounters Appointment; Zachary Painter On 17-Aug-2015 Encounter Diagnosis: [...] Diagnosis: Problem not documented 10:00 Appointment; Torres aCmeron On 19-May-2015 Encounter Diagnosis: Problem not documented [...] Encounter Diagnosis: Problem not documented 14:00 Appointment; iNcola Rosado On 16-Jun-2014 Encounter Diagnosis: Problem not [...]
--- OUTSIDE RECORDS SUMMARY | 2017-12-04 14:34 | External Medical Summary | Summary of Care ---
:1940 Author Name Torres Cameron D.O. Address [address] [place], [place] [address] Care Team Providers Name Role Phone Cole [...] forms of tremor (333.1, G25.0) Status: Active Sleep apnea (780.57, G47.30) Status: [...] Status: Active Anxiety (300.00, F41.9) Status: Active Chronic kidney disease, stage III (moderate) (585.3, N18.3) Status: Active Hypertension (401.9, I10) Status: Active Screening for colon cancer (V76.51, Z12.11) Status: Active Asthma (493.90, J45.909) Status: Active Chronic obstructive pulmonary disease (496, J44.9) Status: Active Fall (E888.9, W19.XXXA) Status: Active Contusion of chest wall, right, initial encounter (922.1, S20.211A) Status: Active Contusion of forehead, initial encounter (920, S00.83XA) Status: Active Strain of right hip, initial encounter (843.9, S76.011A) Status: Active Medications Name Dates Details Pantoprazole [...] 30 Refills: 2 Carlos Jackson M.D. Started ActiveTylenol Arthritis Pain 8 Hour 650 MG TBCR Take 2 tablets every am Refills: 0 Carlos Jackson M.D. Started 12-Sep-2009 ActiveFluticasone Propionate 50 MCG/ACT Nasal Suspension SQUIRT 2 SPRAYS IN EACH NOSTRIL ONCE DAILY Quantity: 16 Refills: 5 Carlos Jackson M.D. Started 12-Sep-2009 ActiveCetirizine HCl - 10 MG Oral Tablet TAKE 1 TABLET DAILY DIRECTED. Quantity: 90 Refills: 3 Carlos Jackson M.D. Started 01-May-2015 ActiveCyclobenzaprine HCl - 10 MG Oral Tablet TAKE 1 TABLET EVERY 8 HOURS NEEDED FOR MUSCLE PAIN Quantity: 30 Refills: 0 Carlos Jackson M.D. Started 05-May-2015 Active Allergies and Adverse Reactions Name Dates Details Sonia CARO Status: Active Effexor TABS Status: Active Sulfa Drugs Status: Active Past Medical History Name Dates Details History of abdominal pain (V13., Z87.898) Status: Resolved History of acute bronchitis (V12.69, Z87.09) Status: Resolved History of Acute maxillary sinusitis (461.0, J01.00) Status: Resolved History of carpal tunnel syndrome (V12.49, Z86.69) Status: Resolved History of Chronic Cough Status: Resolved History of Chronic sinusitis (473.9, J32.9) Status: Resolved History of Dysuria (788.1, R30.0) Status: Resolved History of edema (V13., Z87.898) Status: Resolved History of Elevated erythrocyte sedimentation rate (790.1, R70.0) Status: Resolved History of fever (V13., Z87.898) Status: Resolved History of Long-term current use of steroids (V58.65) Status: Resolved History of renal insufficiency syndrome (V13.09, Z87.448) Status: Resolved History of vomiting (V1., Z87.898) Status: Resolved Procedures Procedure Dates Details [...] Administered on:05-Aug-2011 Influenza Administered on:23-Jun-2012 Lot #: [id number] Fluzone High-Dose Intramuscular Suspension Administered on:30-Jun-2013 Lot #: [id number] Fluzone High-Dose Intramuscular Suspension #1 Administered on:16-Jun-2014 Lot #: [id number] Family History Grandmother Name Dates Details Family history of Heart Disease (V17.49) Status: Active Family history of Hypertension (V17.49) Status: Active Mother Name Dates Details Family history of Breast Cancer (V16.3) Status: Active Social History Name Dates Details Smoking StatusNever smoker Vital Signs Date Test Result Details 19-May-2015 11:42 BP Systolic 141 mm[Hg] Status: BP Diastolic 91 mm[Hg] Status: Temperature 98.1 f Status: Heart Rate 94 /min Status: O2 SAT 98 % Status: 01-May-2015 11:37 BP Systolic 122 mm[Hg] Status: BP Diastolic 60 mm[Hg] Status: Heart Rate 72 /min Status: Weight 130.6 lb Status: Body Mass Index Calculated 22.42 kg/m2 Status: Body Surface Area Calculated 1.63 m2 Status: Results Date Description Value Details Results not documented Plan of Care Planned Observations Name Dates Details Planned Goals not documented Goal Planned Encounters Appointment; Provider: Cole Sprague On 04-Oct-2015 13:15 Appointment; Provider: Carlos Jackson On 20-Jul-2015 10:15 Appointment; Provider: Zenaida Maurice On 16-Oct-2008 12:15 [...] 14:00 Instructions Instructions not documented Encounters Appointment; Torres Cameron On 19-May-2015 Encounter Diagnosis: Problem not documented 11:45 Appointment; Carlos Jackson On 01-May-2015 Encounter Diagnosis: Problem not documented 11:00 Appointment; Hayes Pat On 28-Apr-2015 Encounter Diagnosis: Problem not documented 17:45 Appointment; Cole Sprague On Encounter Diagnosis: Problem [...]
--- OUTSIDE RECORDS SUMMARY | 2017-12-04 14:34 | External Medical Summary | Summary of Care ---
[...] Status: Resolved Hypercholesterolemia (272.0, E78.00) Status: Active Impaired fasting glucose (790.21, R73.01) Status: Active Anxiety (300.00, F41.9) Status: Active Pseudophakia of left eye (V43.1, Z96.1) Status: Active Pseudophakia of right eye (V43.1, Z96.1) Status: Active Asthma (493.90, J45.909) Status: Active Chronic kidney disease, stage III (moderate) (585.3, N18.3) Status: Active Chronic obstructive pulmonary disease (496, J44.9) Status: Active Hypertension (401.9, I10) Status: Active Vitamin B 12 deficiency (266.2, E53.8) Status: Active Allergic rhinitis (477.9, J30.9) Status: Active Essential and other specified forms of tremor (333.1, G25.0) Status: Active Parkinson's disease (332.0, G20) Status: Active Medications Name Dates Details Pantoprazole Sodium 40 MG Oral Tablet Delayed Release TAKE 1 TABLET BY MOUTH TWICE A DAY 30 MINUTES BEFORE BREAKFAST & DINNER Quantity: 60 Refills: 6 Celestine GivensCole Start 26-Aug-2016 Active Sertraline HCl - 100 MG Oral [...] Meraz M.D. Start Active 3 ML Bottle Fluticasone Propionate 50 MCG/ACT Nasal Suspension USE 1 TO 2 SPRAYS IN EACH NOSTRIL ONCE DAILY. Refills: 0 Carlos Jackson M.D. Start 16-Jun-2015 Active PrednisoLONE Acetate 1 % Ophthalmic Suspension Install [...] on: 05-Aug-2011 Influenza on: 23-Jun-2012 Lot #: [id number] Fluzone High-Dose SUSP on: 30-Jun-2013 Lot #: [id number] Fluzone High-Dose SUSP #1 on: 16-Jun-2014 Lot #: [id number] Fluzone High-Dose SUSP on: 09-Jun-2015 Lot #: [id number] Fluzone Quadrivalent 0.5 ML Intramuscular Suspension on: 15-May-2016 Lot #: [id number] Family History Grandmother Name Dates Details Family [...] Provider: [facility] On 10:50 Appointment; Provider: Zachary Painter M.D. On 21-Jan-2017 09:45 Appointment; Provider: Cole Sprague M.D. On 02-Oct-2016 10:30 Appointment; Provider: Carlos Jackson M.D. On 25-Sep-2016 14:15 Instructions Name Dates Details Instructions not documented [...]
--- OUTSIDE RECORDS SUMMARY | 2017-12-04 14:34 | External Medical Summary | Summary of Care ---
:1940 Author Name Cole Sprague M.D. Address Unavailable Unavailable , Care Team Providers Name Role Phone Celestine Givens, Cole Thapa Unavailable Unavailable Mariya Givens, Marv Patterson Unavailable Unavailable WidlerCarin Unavailable Unavailable Carlos Jackson M.D. Unavailable Unavailable [...] Vitamin d deficiency (268.9, E55.9) Status: Active Hyperlipidemia (272.4, E78.5) Status: Active Osteopenia (733.90, M85.80) Status: Active Depression (311, F32.9) Status: Active History of Memory loss (780.93, R41.3) Status: Resolved 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, M19.012) Status: Active Parkinson's disease (332.0, G20) Status: Active Vitamin B 12 deficiency (266.2, E53.8) Status: Active Preop examination (V72.84, Z01.818) Status: Active Hypertension (401.9, I10) Status: Active Hypercholesterolemia [...] for breast cancer (V76.10, Z12.39) Status: Active Chronic obstructive pulmonary disease (496, J44.9) Status: Active Asthma (493.90, J45.909) Status: Active Allergic rhinitis (477.9, J30.9) Status: Active Medications Name Dates Details Pantoprazole [...] 1 Refills: 0 Carin Hawk Started 13-Sep-2015 Vuclhv20 GM Tube Cetirizine HCl - 10 MG Oral Tablet Refills: 0 Started 02-Feb-2016 ActiveVigamox 0.5 % Ophthalmic Solution INSTILL 1 DROP INTO AFFECTED EYE(S) 3 TIMES DAILY. Quantity: 1 Refills: 1 Marv Meraz M.D. Started Active3 ML Bottle PrednisoLONE Acetate 1 % Ophthalmic Suspension Install 1 drop as directed 6 times daily (during waking hours) Starting after surgery. Quantity: 10 Refills: 1 Marv Meraz M.D. Started Active Allergies and Adverse Reactions [...] Right Eye BASIC METABOLIC PROFILE 1210 Ordered: XRay CHEST-PA & LAT Ordered: MAMMOGRAM-SCREENING Ordered: Immunization Name Dates Details Pneumo (Pneumovax) Administered on:12-Jul-2008 Influenza Administered on:10-May-2009 Influenza A (H1N1) Monoval Vac Intramuscular Suspension Administered on:2009 Influenza A (H1N1) Monoval PF Intramuscular Suspension Administered on:2009 Influenza A (H1N1) Monoval Vac Intramuscular Suspension Administered on: Zoster (Zostavax) Administered on:05-Aug-2011 Influenza Administered on:23-Jun-2012 Lot #: [id number] Fluzone High-Dose Intramuscular Suspension Administered on:30-Jun-2013 Lot #: [id number] Fluzone High-Dose Intramuscular Suspension #1 Administered on:16-Jun-2014 Lot #: [id number] Fluzone High-Dose Intramuscular Suspension Administered on:09-Jun-2015 Lot #: [id number] Family History Grandmother Name Dates Details Family [...] smoker Vital Signs Date Test Result Details 11:38 BP Systolic 134 mm[Hg] Status: BP Diastolic 78 mm[Hg] Status: Heart Rate 77 /min Status: Height 64 in Status: Weight 126 lb Status: O2 SAT 98 % Status: Body Mass Index Calculated 21.63 kg/m2 Status: Body Surface Area Calculated 1.61 m2 Status: Results Date Description Value Details Results not documented Plan of Care Planned Observations Name Dates Details Planned Goals not documented Goal Planned Encounters Appointment; Provider: Cole Sprague On 02-Oct-2016 10:30 Appointment; Provider: Zachary Painter On 24-Jul-2016 09:15 Appointment; Provider: Carlos Jackson On 15-May-2016 09:15 Appointment; Provider: Schedule Radiology On 16:20 Appointment; Provider: Schedule Radiology On 10:10 Appointment; Provider: Schedule Radiology On 06-Dec-2015 15:00 [...] Sprague On Encounter Diagnosis: Problem not documented 11:15 Appointment; Marv Meraz On Encounter Diagnosis: Problem not documented 09:00 Appointment; Carlos Jackson On Encounter Diagnosis: Problem not documented 07:00 Appointment; Marv Meraz On Encounter Diagnosis: Problem not documented 08:15 Appointment; Marv Meraz On Encounter Diagnosis: Problem not documented 09:30 Appointment; Marv Mreaz On Encounter Diagnosis: Problem not documented 08:45 Appointment; Marv Meraz On Encounter Diagnosis: Problem not documented 08:15 Appointment; Marv Meraz On Encounter Diagnosis: Problem not documented 08:45 Appointment; Cole Sprague On Encounter Diagnosis: Problem not documented 16:00 Appointment; Marv Meraz On Encounter Diagnosis: Problem not documented 09:00 Appointment; Carlos Jackson On Encounter Diagnosis: Problem not documented 09:45 Appointment; Marv Meraz On 02-Feb-2016 Encounter Diagnosis: [...] Encounter Diagnosis: Problem not documented 10:00 Appointment; Torers Cameron On 19-May-2015 Encounter Diagnosis: Problem not [...]
--- OUTSIDE RECORDS SUMMARY | 2017-12-04 14:35 | External Medical Summary | Summary of Care ---
[...] loss (780.93, R41.3) Status: Resolved Hypercholesterolemia (272.0, E78.0) Status: Active Impaired fasting [...] Active Parkinson's disease (332.0, G20) Status: Active Hypertension (401.9, I10) Status: Active Vitamin B 12 deficiency (266.2, E53.8) Status: Active Allergic rhinitis (477.9, J30.9) Status: Active Medications Name Dates Details Pantoprazole Sodium 40 MG Oral Tablet Delayed Release TAKE 1 TABLET BY MOUTH TWICE A DAY 30 MINUTES BEFORE BREAKFAST & DINNER Quantity: 60 Refills: 6 Celestine GivensCole Start 04-Feb-2008 Active Sertraline HCl - 100 MG Oral Tablet take 1 tablet by mouth every day Quantity: 30 Refills: 5 Renetta Givens Carlos Anderson Start Active Fluticasone Propionate 50 MCG/ACT Nasal [...] Cataract Extract With Prosthesis Insert Right Eye CBC w/ Auto Diff 7150 Ordered: 15-May-2016 Comprehensive Metabolic Panel 1212 Ordered: 15-May-2016 LIPID PROFILE 1184 Ordered: 15-May-2016 THYROID STIM. HORMONE 3602 Ordered: 15-May-2016 Immunization Name Dates Details Pneumo (Pneumovax) on: 12-Jul-2008 Influenza on: 10-May-2009 Influenza A (H1N1) Monoval Vac SUSP on: 12-Sep-2009 Influenza A (H1N1) Monoval PF SUSP on: 08-Jun-2010 Influenza A (H1N1) Monoval Vac SUSP on: 19-Jun-2011 Zoster (Zostavax) on: 05-Aug-2011 Influenza on: 23-Jun-2012 Lot #: [id number] Fluzone High-Dose SUSP on: 30-Jun-2013 Lot #: [id number] Fluzone High-Dose SUSP #1 on: 16-Jun-2014 Lot #: [id number] Fluzone High-Dose SUSP on: 09-Jun-2015 Lot #: [id number] Fluzone Quadrivalent 0.5 ML Intramuscular Suspension on: 15-May-2016 Lot #: [id number] Family History Grandmother Name Dates Details Family [...] >60 ml/min Range: >60 EST GFR, NON-AFR [place] 53 ml/min (Below low Range: >60 threshold) [...] 10:30 Appointment; Provider: Carlos Jackson M.D. On 27-Aug-2016 09:45 Appointment; Provider: Zachary Painter M.D. On 24-Jul-2016 09:15 Interventions Provided Medications/Immunizations AdministeredFluzone Quadrivalent 0.5 ML Intramuscular Suspension; Done: 15 May 2016 Instructions Name Dates Details Instructions not [...] Encounter Diagnosis: Problem not documented 10:45 Appointment; Coel Sprague M.D. On 06-Oct-2014 Encounter Diagnosis: Problem [...]
--- OUTSIDE RECORDS SUMMARY | 2017-12-04 14:35 | External Medical Summary | Summary of Care ---
[...] forms of tremor (333.1, G25.0) Status: Active Chronic obstructive pulmonary disease (496, J44.9) Status: Active Parkinson's disease (332.0, G20) Status: Active Vitamin B 12 deficiency (266.2, E53.8) Status: Active Impaired fasting glucose (790.21, R73.01) Status: Active Depression (311, F32.9) Status: Active Asthma (493.90, J45.909) Status: Active Chronic kidney disease (CKD), stage 3 (moderate) (585.3, N18.3) Status: Active Hypertension (401.9, I10) Status: Active Medications Name Dates Details Pantoprazole Sodium 40 MG Oral Tablet Delayed Release TAKE 1 TABLET BY MOUTH TWICE A DAY 30 MINUTES BEFORE BREAKFAST & DINNER Quantity: 60 Refills: 6 Cole Sprague M.D. Start 26-Aug-2016 Active Sertraline HCl - 100 [...] ML INTRAMUSCULARLY ONCE A MONTH Refills: 0 Carols Jackson M.D. Start 23-Aug-2015 Active Mupirocin 2 [...] on: 05-Aug-2011 Influenza on: 23-Jun-2012 Lot #: [id number] Fluzone High-Dose SUSP on: 30-Jun-2013 Lot #: [id number] Fluzone High-Dose SUSP #1 on: 16-Jun-2014 Lot #: [id number] Fluzone High-Dose SUSP on: 09-Jun-2015 Lot #: [id number] Fluzone Quadrivalent 0.5 ML Intramuscular Suspension on: 15-May-2016 Lot #: [id number] Prevnar 13 Intramuscular Suspension on: 02-Oct-2016 Lot #: [id number] Family History Grandmother Name Dates Details Family [...] low Range: >60 threshold) EST GFR, NON-AFR [place] 49 ml/min (Below low Range: >60 threshold) [...]
--- OUTSIDE RECORDS SUMMARY | 2017-12-04 14:35 | External Medical Summary | Summary of Care ---
:1940 Author Name Carlos Jackson M.D. Address [address], [place] [id number] Care Team Providers Name Role Phone Konrad Schmitz D.O., D.O., Gregory L Unavailable Unavailable Carlos Jackson Primary Care Provider [...] Active Memory loss (780.93, R41.3) Status: Active Medications Name Dates Details Vitamin D-3 1000 UNIT Oral Capsule take 1 capsule daily Quantity: 1 Refills: 0 Torres Cameron D.O. Started 19-May-2015 ActiveCalcium 1500 MG Oral Tablet TAKE 1 TABLET DAILY. Refills: 0 Konrad SchmitzOAnnia Started 26-May-2015 Active Allergies and Adverse Reactions Name Dates [...] History of Spinal Percutaneous Vertebroplasty, Injection Thoracic ULTRASOUND CAROTID Ordered:26-May-2015 Immunization Name Dates Details Pneumo (Pneumovax) Administered on:12-Jul-2008 Influenza Administered on:10-May-2009 Influenza A (H1N1) Monoval Vac Intramuscular Suspension Administered on:2009 Influenza A (H1N1) Monoval PF Intramuscular Suspension Administered on:2009 Influenza A (H1N1) Monoval Vac Intramuscular Suspension Administered on: Zoster (Zostavax) Administered on:05-Aug-2011 Influenza Administered on:23-Jun-2012 Lot #: [id number] Fluzone High-Dose Intramuscular Suspension Administered on:30-Jun-2013 Lot #: [id number] Fluzone High-Dose Intramuscular Suspension #1 Administered on:16-Jun-2014 Lot #: [id number] Family History Grandmother Name Dates Details Family history of Heart Disease (V17.49) Status: Active Family history of Hypertension (V17.49) Status: Active Mother Name Dates Details Family history of Breast Cancer (V16.3) Status: Active Social History Name Dates Details Smoking StatusNever smoker Vital Signs Date Test Result Details 26-May-2015 10:22 BP Systolic 130 mm[Hg] Status: [...] m2 Status: Results Date Description Value Details 19-May-2015 [...] WITH CONTRAST XMR BRAIN WO/W RONALD (Better) Plan of Care Planned Observations Name Dates Details Planned Goals not documented Goal Planned Encounters Appointment; Provider: Cole Sprague On 04-Oct-2015 13:15 Appointment; Provider: Zachary Painter On 07-Aug-2015 11:00 Appointment; Provider: Carlos Jackson On 20-Jul-2015 10:15 Appointment; Provider: Carlos Jackson On 23-Jun-2015 07:30 Appointment; Provider: Carlos Jackson On 16-Jun-2015 07:30 Appointment; Provider: Carlos Jackson On 09-Jun-2015 07:45 Appointment; Provider: Carlos Jackson On 02-Jun-2015 08:00 Appointment; Provider: Schedule Radiology On 26-May-2015 14:00 [...] not documented Encounters Appointment; Carlos Jackson On 26-May-2015 Encounter Diagnosis: [...]
--- OUTSIDE RECORDS SUMMARY | 2017-12-04 14:35 | External Medical Summary | Summary of Care ---
:1940 Author Name Torres Cameron D.O. Address [address] [place], [place] [id number] Care Team Providers Name Role Phone Cole [...] hip, initial encounter (843.9, S76.011A) Status: Active Confusion (298.9, R41.0) Status: Active Osteopenia (733.90, M85.80) Status: Active Hypertension (401.9, I10) Status: Active Essential and other specified forms of tremor (333.1, G25.0) Status: Active Closed head injury (959.01, S09.90XA) Status: Active Anxiety (300.00, F41.9) Status: Active Depression (311, F32.9) Status: Active Chronic kidney disease, stage III (moderate) (585.3, N18.3) Status: Active Vitamin B 12 deficiency (266.2, E53.8) Status: Active Acute sinusitis (461.9, J01.90) Status: Active Post-concussional syndrome (310.2, F07.81) Status: Active Medications Name Dates Details Pantoprazole [...] Name Dates Details History of abdominal pain (., Z87.898) Status: Resolved History of acute bronchitis (V12.69, Z87.09) Status: Resolved History of Acute maxillary sinusitis (461.0, J01.00) Status: Resolved History of carpal tunnel syndrome (V12.49, Z86.69) Status: Resolved History of Chronic Cough Status: Resolved History of Chronic sinusitis (473.9, J32.9) Status: Resolved History of Dysuria (788.1, R30.0) Status: Resolved History of edema (., Z87.898) Status: Resolved History of Elevated erythrocyte sedimentation rate (790.1, R70.0) Status: Resolved History of fever (., Z87.898) Status: Resolved History of Long-term current [...] Administered on:05-Aug-2011 Influenza Administered on:23-Jun-2012 Lot #: [id number] Fluzone High-Dose Intramuscular Suspension Administered on:30-Jun-2013 Lot #: [id number] Fluzone High-Dose Intramuscular Suspension #1 Administered on:16-Jun-2014 Lot #: [id number] Family History Grandmother Name Dates Details Family [...] D, 25-HYDROXY 33 ng/mL (Better) Range: 30-100 Plan of Care Planned Observations Name Dates [...]
--- OUTSIDE RECORDS SUMMARY | 2017-12-04 14:36 | External Medical Summary | Summary of Care ---
:1940 Author Name Carlos Jackson M.D. Address [address], [place] [id number] Care Team Providers Name Role Phone Cole [...] Refills: 5 Carlos Jackson M.D. Started 12-Sep-2009 ActivePromethazine-Codeine 6.25-10 MG/5ML Oral Syrup TAKE 1 TEASPOONFUL EVERY 4 TO 6 HOURS NEEDED. Quantity: 1 Refills: 0 Carlos Jackson M.D. Started 19-Sep-2009 [id number] ML Bottle Flovent HFA 220 MCG/ACT Inhalation Aerosol USE 1 PUFF TWICE DAILY.RINSE MOUTH AFTER USE. Quantity: 1 Refills: 1 Cole Sprague M.D. Started 01-Feb-2014 Ulhejq37 GM Inhaler Voltaren 1 % Transdermal Gel APPLY DIRECTED TO AFFECTED AREA TID PRN Quantity: 1 Refills: 3 Carlos Jackson M.D. Started Peyofi320 GM Tube Cetirizine HCl - 10 MG Oral Tablet TAKE 1 TABLET DAILY DIRECTED. Quantity: 90 Refills: 3 Carlos Jackson M.D. Started 01-May-2015 Active Allergies and Adverse Reactions Name Dates [...] Administered on:05-Aug-2011 Influenza Administered on:23-Jun-2012 Lot #: [id number] Fluzone High-Dose Intramuscular Suspension Administered on:30-Jun-2013 Lot #: [id number] Fluzone High-Dose Intramuscular Suspension #1 Administered on:16-Jun-2014 Lot #: [id number] Family History Grandmother Name Dates Details Family history of Heart Disease (V17.49) Status: Active Family history of Hypertension (V17.49) Status: Active Mother Name Dates Details Family history of Breast Cancer (V16.3) Status: Active Social History Name Dates Details Smoking StatusNever smoker Vital Signs Date Test Result Details 01-May-2015 11:37 BP Systolic 122 mm[Hg] Status: BP Diastolic 60 mm[Hg] Status: Heart Rate 72 /min Status: Weight 130.6 lb Status: Body Mass Index Calculated 22.42 kg/m2 Status: Body Surface Area Calculated 1.63 m2 Status: 14:47 BP Systolic 136 mm[Hg] Status: BP Diastolic 72 mm[Hg] Status: Heart Rate 73 /min Status: Respiration Rate 20 /min Status: Weight 131.6 lb Status: O2 SAT 99 % Status: Body Mass Index Calculated 22.59 kg/m2 Status: Body Surface Area Calculated 1.64 m2 Status: Results Date Description Value Details 14:04 XRay CHEST-PA & LAT Comments: Exam [...] not documented Encounters Appointment; Carlos Jackson On 01-May-2015 Encounter Diagnosis: [...]
--- OUTSIDE RECORDS SUMMARY | 2017-12-04 14:36 | External Medical Summary | Summary of Care ---
:1940 Author Name Cole Sprague M.D. Address [address] [place], [place] [id number] Care Team Providers Name Role Phone Cole Sprague M.D. 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 Quantity: 1 Refills: 1 Marv Najera M.D. Started Active3 ML Bottle PrednisoLONE Acetate 1 % Ophthalmic Suspension Install 1 drop as directed 6 times daily (during waking hours) Starting after surgery. Quantity: 10 Refills: 1 Marv Najera M.D. Started Active Allergies and Adverse Reactions [...] Administered on:05-Aug-2011 Influenza Administered on:23-Jun-2012 Lot #: [id number] Fluzone High-Dose Intramuscular Suspension Administered on:30-Jun-2013 Lot #: [id number] Fluzone High-Dose Intramuscular Suspension #1 Administered on:16-Jun-2014 Lot #: [id number] Fluzone High-Dose Intramuscular Suspension Administered on:09-Jun-2015 Lot #: [id number] Family History Grandmother Name Dates Details Family [...] smoker Vital Signs Date Test Result Details 16:02 BP Systolic 130 mm[Hg] Status: BP Diastolic 76 mm[Hg] Status: Heart Rate 78 /min Status: Height 64 in Status: Weight 128 lb Status: O2 SAT 95 % Status: Body Mass Index Calculated 21.97 kg/m2 Status: Body Surface Area Calculated 1.62 m2 Status: 10:27 BP Systolic 130 mm[Hg] Status: BP [...] GFR, 59 ml/min (Below low Range: >60 [place] threshold) EST GFR, NON-AFR 49 ml/min (Below low Range: >60 [place] threshold) Comments: EST GFR is reported in ml/min per 1.73 m2 of body surface area. For -Cro[place]ian, please multiple result by 1.2.----- BUN:CREATININE RATIO 11 (Better) GLUCOSE 101 mg/dL (Above Range: 70-100 high threshold) CALCIUM 8.7 mg/dL (Better) Range: 8.5-10.1 09:41 Urinalysis, reflex to Comments: Fastin hours Micro and Culture ([facility]) 8016 pH 6.0 (Better) Range: 5.0-7.5 SP [...] [facility]MIC Comments: DOS 02/15/16 DR[facility] NAJERA AT [facility] Fastin hours WBC 3-5 /HPF (Better) Range: [...] Provider: Marv Najera On 08:45 Appointment; Provider: Schedule Radiology On 06-Dec-2015 15:00 [...] Diagnosis: Problem not documented 16:00 Appointment; Marv Najera On Encounter Diagnosis: Problem not documented 09:00 [...]
--- OUTSIDE RECORDS SUMMARY | 2017-12-04 14:36 | External Medical Summary | Summary of Care ---
:1940 Author Name Carlos Jackson M.D. Address [address], [place] [id number] Care Team Providers Name Role Phone Celestine [...] Refills: 1 Cole Sprague M.D. Started 01-Feb-2014 Pgyrgv55 GM Inhaler Voltaren 1 % Transdermal Gel APPLY DIRECTED TO AFFECTED AREA TID PRN Quantity: 1 Refills: 3 Carlos Jackson M.D. Started Lelybl178 GM Tube Ibandronate Sodium 150 MG Oral [...] Refills: 0 Cole Sprague M.D. Started 18-Jan-2015 Active Allergies and Adverse Reactions Name Dates [...] Vertebroplasty, Injection Thoracic Colonoscopy- Screening or Dx Pendin Immunization Name Dates Details Pneumo (Pneumovax) Administered on:12-Jul-2008 Influenza Administered on:10-May-2009 Influenza A (H1N1) Monoval Vac Intramuscular Suspension Administered on:2009 Influenza A (H1N1) Monoval PF Intramuscular Suspension Administered on:2009 Influenza A (H1N1) Monoval Vac Intramuscular Suspension Administered on: Zoster (Zostavax) Administered on:05-Aug-2011 Influenza Administered on:23-Jun-2012 Lot #: [id number] Fluzone High-Dose Intramuscular Suspension Administered on:30-Jun-2013 Lot #: [id number] Fluzone High-Dose Intramuscular Suspension #1 Administered on:16-Jun-2014 Lot #: [id number] Family History Grandmother Name Dates Details Family [...] Range: >60 low threshold) EST GFR, NON-AFR [place] 44 ml/min (Below Range: >60 low threshold) Comments: EST GFR is reported in ml/min per 1.73 m2 of body surface area. For -Greek, please multiple result by 1.2.----- BUN:CREATININE RATIO [...] Carlos Jackson On 20-Jul-2015 10:15 Appointment; Provider: Cole Sprague On 14:00 Appointment; [...]
--- OUTSIDE RECORDS SUMMARY | 2017-12-04 14:36 | External Medical Summary | Summary of Care ---
:1940 Author Name Carlos Jackson M.D. Address [address] [place], [place] [id number] Care Team Providers Name Role Phone Celestine [...] Status: Active Asthma (493.90, J45.909) Status: Active Hypertension (401.9, I10) Status: Active Hyperlipidemia (272.4, E78.5) Status: Active Impaired fasting glucose (790.21, R73.01) Status: Active Anxiety (300.00, F41.1) Status: Active Chronic obstructive pulmonary disease (496, J44.9) Status: Active Chronic kidney disease, stage III (moderate) (585.3, N18.3) Status: Active Medications Name Dates Details Pantoprazole [...] Refills: 1 Cole Sprague M.D. Started 01-Feb-2014 [id number] GM Inhaler Voltaren 1 % Transdermal Gel APPLY DIRECTED TO AFFECTED AREA TID PRN Quantity: 1 Refills: 3 Carlos Jackson M.D. Started [id number] GM Tube Ibandronate Sodium 150 MG Oral [...] STANDARD JET NEBULIZER DIRECTED. Quantity: 120 Refills: 11 Cole Sprague M.D. Started 27-Oct-2014 ActiveAzithromycin 250 MG Oral Tablet TAKE 2 TABLETS ON DAY 1 THEN TAKE 1 TABLET A DAY FOR 4 DAYS. Quantity: 6 Refills: 0 Cole Sprague M.D. Started 10-Jan-2015 ActivePredniSONE 10 MG Oral Tablet Take 4omg times 3 days, 30mg times 3 days, 20mg times 3 days then 10mg times 3 days Quantity: 30 Refills: 0 Cole Sprague M.D. Started 10-Jan-2015 ActiveCheratussin AC 100-10 MG/5ML Oral Syrup TAKE [...] Administered on:05-Aug-2011 Influenza Administered on:23-Jun-2012 Lot #: [id number] Fluzone High-Dose Intramuscular Suspension Administered on:30-Jun-2013 Lot #: [id number] Fluzone High-Dose Intramuscular Suspension #1 Administered on:16-Jun-2014 Lot #: [id number] Family History Grandmother Name Dates Details Family [...] On 14:00 Appointment; Provider: Carlos Jackson On 09:45 Appointment; Provider: Zenaida Maurice On 16-Oct-2008 12:15 [...] not documented Encounters Appointment; Cole Sprague On 19-Jan-2015 Encounter Diagnosis: [...]
--- OUTSIDE RECORDS SUMMARY | 2017-12-04 14:36 | External Medical Summary ---
:1940 Author Name GENERATED, SYSTEM Care Team Providers Name Role Phone MD SATYA, MIGUEL ANGEL Primary Care Provider [phone] Reason For Visit Chief Complaint FELL- HIT HEAD RIGHT SIDE Social History Functional Status Vital Signs Results Chemistry from 04/28/2015 7:37 [id number] MMOL/L L (136-145 MMOL/L) POTASSIUM3.5 MMOL/L (3.5-5.1 MMOL/L) OUEUXPXO47 MMOL/L (98-107 MMOL/L) HZN204.7 MMOL/L (21.0-32.0 MMOL/L) ANION GAP9.3 MMOL/L (8.0-16.0 MMOL/L) BUN11 MG/DL (7-18 MG/DL) CREATININE1.20 MG/DL H (0.55-1.02 MG/DL) BUN/CREATININE RATIO9.2 (9.1-17.0 ) DKBTAMZ162 MG/DL H (65-99 MG/DL) GFR EST NON AFR VPVMGHVK84 ML/MIN GFRA EST AFR AMER51 ML/MIN CALCIUM9.0 MG/DL (8.5-10.1 MG/DL) BILIRUBIN TOTAL0.44 MG/DL (0.20-1.00 MG/DL) TOTAL PROTEIN7.5 GM/DL (6.4-8.2 GM/DL) ALBUMIN4.1 GM/DL (3.4-5.0 GM/DL) GLOBULIN3.4 GM/DL (2.3-3.5 GM/DL) A/G RATIO1.2 MG/DL L (1.5-2.2 MG/DL) ALK PHOS64 U/L (46-116 U/L) ALT (SGPT)25 U/L (16-63 U/L) AST (SGOT)21 U/L (15-37 U/L) MDVACW157 U/L (73-393 U/L)Hematology from 04/28/2015 7:37 PMWBC13.3 X10e3/UL H ( 3.6-11.2 X10e3/UL) RBC3.90 X10e6/UL (3.63-4.92 X10e6/UL) COTRTBHYEX21.5 G/DL (11.0-14.3 G/DL) AWGVCIRGHO81.4 % (31.2-41.9 %) OVG046.9 FL H (79.0-98.0 FL) MCH34.7 PG H (27.0-33.0 PG) MCHC34.4 G/DL (32.0-36.0 G/DL) RDW13.4 % (12.3-17.0 %) RDWSD47.7 (37.1-47.8 ) UCYNVTIQ535 X10e3/UL (159-386 X10e3/UL) MPV6.8 FL L (7.4-10.4 FL) AUTOMATED DIFFPERFORMED SEGS82.4 % HSOOBNZAHYD05.3 % MONOCYTES6.5 % EOSINOPHILS0.4 % BASOPHILS0.4 % ABSOLUTE DBZEKDPEFHN32.00 X10e3/UL H (1.80-7.80 X10e3/UL) ABSOLUTE LYMPHOCYTES1.40 X10e3/UL (1.00-3.00 X10e3/UL) ABSOLUTE MONOCYTES0.90 X10e3/UL (0.30-1.00 X10e3/UL) ABSOLUTE EOSINOPHILS0.00 X10e3/UL (0.00-0.50 X10e3/UL) ABSOLUTE BASOPHILS0.10 X10e3/UL (0.00-0.20 X10e3/UL)CT Scan from 04/28/2015 8:13 PMCT ABD/PELVIS W/CONTRASTHistory: Abdominal Pain . Fall. Patient presents with right rib and right groin pain. Technique: Post contrast images were performed after the administration of 75 milliliters of Isovue intravenous contrast. Priors: CT of abdomen pelvis dated 04/11/2008 Findings: Abdomen Lung bases: Clear Liver: Normal density. No definable mass. Spleen: Normal. Pancreas: No discrete mass or inflammatory process. Gallbladder and biliary tract: No radiodense calculus or dilation. Adrenal glands: Normal. Kidneys: Normal enhancement. No masses. No radiodense stones or hydronephrosis. Incidental note is made of a circumaortic left renal vein. Urinary Bladder: Normal. Aorta: Normal in caliber. No periaortic lymphadenopathy. Bowel and Mesentery: There is a moderate amount of retained fecal material noted, particularly within the rectum. No findings of appendicitis. Ascites: None. There is a small hiatal hernia. Pelvis Lymphadenopathy: None. Reproductive: The uterus is surgically absent. Osseous Structures: There is a chronic compression fracture of T12 which is been treated with vertebroplasty. No acute fractures are identified. Impression: No acute abnormality. Constipation Electronically signed by: Ira Price MD Dictated: 04/29/2015 08:29 CT CHEST W/ CONTRASTHistory: Chest pain (trauma) . Technique: Post contrast images were performed after the administration of 95 milliliters of Isovue intravenous contrast. Priors: CT the chest dated 10/03/2008 Findings: Heart size: Normal. Aorta: Thoracic portion non-dilated. Mediastinum and Estela: No dominant adenopathy or fluid collection. Pleura: No effusion or pneumothorax. Pulmonary parenchyma: No consolidation or dominant measurable mass. Upper abdomen: Unremarkable. Osseous structures: There remote fracture deformities of the right anterolateral 3rd, 4th, and 5th ribs. No acute rib fractures are identified. Impression: No acute abnormality. Electronically signed by: Iar Price MD Dictated: 04/29/2015 08:24CT Scan from 04/28/2015 8:10 PMCT CEREBRAL W/O CONTRASTHistory: Dizziness . Fall and hematoma to the right forehead. Priors: CT of the head dated 04/15/2008 Findings: Ventricles and Extra axial spaces: Normal in size and morphology for the patient's age. Hemorrhage: None. Cerebral parenchyma: There is mild decreased attenuation within the periventricular white matter suggestive of chronic microvascular ischemic changes. Mass effect/midline shift: None. Brainstem/Cerebellum: Normal. Calvarium: No fractures are identified. There is an exophytic sclerotic density arising from the left frontal bone which has benign appearance. There is no cortical destruction. Visualized Paranasal sinuses/Mastoids: There is opacification of the visualized portion of the right maxillary sinus and near-complete opacification of the left sphenoid sinus, the latter of which demonstrates an air-fluid level. Impression: No evidence of acute intracranial hemorrhage, mass effect, or calvarial fracture. Right maxillary and left sphenoid sinusitis. Electronically signed by: Ira Price MD Dictated: 04/29/2015 08:32 Problems Encounter Diagnosis No relevant problems exist. [...]
--- OUTSIDE RECORDS SUMMARY | 2017-12-04 14:37 | External Medical Summary | Summary of Care ---
:1940 Author Name Yessy Rice Address [address] Unavailable [place], [place] [id number] Care Team Providers Name Role Phone Celestine Givens, Cole Thapa Unavailable Unavailable Yessy Rice Unavailable Unavailable Carin Hawk Unavailable Unavailable Renetta [...] Refills: 0 Carlos Jackson M.D. Start Active Cetirizine HCl - 10 MG Oral [...] on: 05-Aug-2011 Influenza on: 23-Jun-2012 Lot #: [id number] Fluzone High-Dose SUSP on: 30-Jun-2013 Lot #: [id number] Fluzone High-Dose SUSP #1 on: 16-Jun-2014 Lot #: [id number] Fluzone High-Dose SUSP on: 09-Jun-2015 Lot #: [id number] Fluzone Quadrivalent 0.5 ML Intramuscular Suspension on: 15-May-2016 Lot #: [id number] Prevnar 13 Intramuscular Suspension on: 02-Oct-2016 Lot #: [id number] Family History Grandmother Name Dates Details Family [...] Painter M.D. On 21-Jan-2017 09:45 Appointment; Provider: Deacon Ng M.D. On 06-Dec-2016 14:15 Instructions Name Dates Details Instructions not documented Encounters Appointment; Kehinde Mcmullen M.D. On 07-Oct-2016 Encounter [...]
--- OUTSIDE RECORDS SUMMARY | 2017-12-04 14:37 | External Medical Summary | Summary of Care ---
:1940 Author Name Carin Hawk Address [address] [place] [address] Care Team Providers Name Role Phone Cole Sprague M.D. Unavailable Unavailable Kenn Carin Unavailable Unavailable Carlos Jackson M.D. Unavailable [...] Active Skin infection (686.9, L08.9) Status: Active Medications Name Dates Details Pantoprazole [...] Oral Tablet TAKE 1 TABLET DAILY. Quantity: 30 Refills: 6 Carlos Jackson M.D. Started 23-Aug-2015 ActiveCyanocobalamin 1000 MCG/ML Injection Solution INJECT 1 ML INTRAMUSCULARLY ONCE A MONTH Refills: 0 Carlos Jackson M.D. Started 23-Aug-2015 ActiveMupirocin 2 % External Ointment APPLY A SMALL AMOUNT 3 TIMES DAILY DIRECTED. Quantity: 1 Refills: 0 Carin Hawk Started 13-Sep-2015 Mbjoxg17 GM Tube Allergies and Adverse Reactions Name [...] Administered on:05-Aug-2011 Influenza Administered on:23-Jun-2012 Lot #: [id number] Fluzone High-Dose Intramuscular Suspension Administered on:30-Jun-2013 Lot #: [id number] Fluzone High-Dose Intramuscular Suspension #1 Administered on:16-Jun-2014 Lot #: [id number] Fluzone High-Dose Intramuscular Suspension Administered on:09-Jun-2015 Lot #: [id number] Family History Grandmother Name Dates Details Family [...] smoker Vital Signs Date Test Result Details 13-Sep-2015 15:33 BP Systolic 108 mm[Hg] Status: BP Diastolic 70 mm[Hg] Status: Temperature 97.2 f Status: Heart Rate 64 /min Status: Weight 127 lb Status: O2 SAT 98 % Status: Body Mass Index Calculated 21.8 kg/m2 Status: Body Surface Area Calculated 1.61 m2 Status: 23-Aug-2015 14:49 BP Systolic 124 mm[Hg] Status: [...] Range: >60 low threshold) EST GFR, NON-AFR ANDORRAN 42 ml/min (Below Range: >60 low threshold) Comments: EST GFR is reported in ml/min per 1.73 m2 of body surface area. For -Senegalese, please multiple result by 1.2.----- GLUCOSE 106 [...] Planned Encounters Appointment; Provider: Carlos Jackson On 26-Dec-2015 08:45 [...] not documented Encounters Appointment; Carin Hawk On 13-Sep-2015 Encounter Diagnosis: [...]
--- OUTSIDE RECORDS SUMMARY | 2017-12-04 14:37 | External Medical Summary | Summary of Care ---
:1940 Author Name Carlos Jackson M.D. Address [address] [place], [place] [id number] Care Team Providers Name Role Phone Cole [...] forms of tremor (333.1, G25.0) Status: Active Pain of left shoulder joint [...] 1 Refills: 0 Carin Hawk Started 13-Sep-2015 Cpmbxp82 GM Tube TraMADol HCl - 50 MG [...] Administered on:05-Aug-2011 Influenza Administered on:23-Jun-2012 Lot #: [id number] Fluzone High-Dose Intramuscular Suspension Administered on:30-Jun-2013 Lot #: [id number] Fluzone High-Dose Intramuscular Suspension #1 Administered on:16-Jun-2014 Lot #: [id number] Fluzone High-Dose Intramuscular Suspension Administered on:09-Jun-2015 Lot #: [id number] Family History Grandmother Name Dates Details Family [...] On 15:30 Appointment; Provider: Zachary Painter On 20-Dec-2015 08:15 [...]
--- OUTSIDE RECORDS SUMMARY | 2017-12-04 14:37 | External Medical Summary | Summary of Care ---
:1940 Author Name Zachary Painter M.D. Address Unavailable Unavailable , Care Team Providers Name Role Phone Celestine Givens, Cole Thapa Unavailable Unavailable Humbleapril Carin Unavailable Unavailable Inocencio Givens, Zachary Alberto Unavailable Unavailable Renetta Givens, [...] obstructive pulmonary disease (496, J44.9) Status: Active Vitamin B 12 deficiency (266.2, [...] Status: Active Asthma (493.90, J45.909) Status: Active Parkinson's disease (332.0, G20) Status: Active Essential and other specified forms [...] on: 05-Aug-2011 Influenza on: 23-Jun-2012 Lot #: [id number] Fluzone High-Dose SUSP on: 30-Jun-2013 Lot #: [id number] Fluzone High-Dose SUSP #1 on: 16-Jun-2014 Lot #: [id number] Fluzone High-Dose SUSP on: 09-Jun-2015 Lot #: [id number] Fluzone Quadrivalent 0.5 ML Intramuscular Suspension on: 15-May-2016 Lot #: [id number] Prevnar 13 Intramuscular Suspension on: 02-Oct-2016 Lot #: [id number] Family History Grandmother Name Dates Details Family [...] smoker Vital Signs Date Test Result Details 21-Jan-2017 09:54 BP Systolic 128 mm[Hg] Status: Comments: Location: LUE; Position: Sitting BP Diastolic 76 mm[Hg] Status: Comments: Location: LUE; Position: Sitting Heart Rate 72 /min Status: Comments: Location: ; Weight 116.8 lb Status: Physical Findings 98 [...] Painter M.D. On 23-Jul-2017 09:45 Appointment; Provider: Schedule Radiology On 10:50 Appointment; Provider: Cole Sprague M.D. On 10:30 Appointment; Provider: Carlos Jackson M.D. On 05-Feb-2017 10:45 Interventions Provided Medication ChangesDexamethasone 4 MG Oral Tablet - Completed Instructions Name Dates Details Instructions not documented Encounters Appointment; Yessy Jackson P.A. On 28-Nov-2016 Encounter [...]
--- OUTSIDE RECORDS SUMMARY | 2017-12-04 14:38 | External Medical Summary | Summary of Care ---
:1940 Author Name Carlos Jackson M.D. Address [address], [place] [id number] Care Team Providers Name Role Phone Cole [...] Administered on:05-Aug-2011 Influenza Administered on:23-Jun-2012 Lot #: [id number] Fluzone High-Dose Intramuscular Suspension Administered on:30-Jun-2013 Lot #: [id number] Fluzone High-Dose Intramuscular Suspension #1 Administered on:16-Jun-2014 Lot #: [id number] Fluzone High-Dose Intramuscular Suspension Administered on:09-Jun-2015 Lot #: [id number] Family History Grandmother Name Dates Details Family [...] Range: >60 low threshold) EST GFR, NON-AFR [place] 42 ml/min (Below Range: >60 low threshold) Comments: EST GFR is reported in ml/min per 1.73 m2 of body surface area. For -Danish, please multiple result by 1.2.----- GLUCOSE 106 [...]
--- OUTSIDE RECORDS SUMMARY | 2017-12-04 14:38 | External Medical Summary | Summary of Care ---
[...] E53.8) Status: Active Medications Name Dates Details Promethazine-Codeine 6.25-10 MG/5ML Oral Syrup TAKE 1 TEASPOONFUL EVERY 4 HOURS NEEDED. Quantity: 1 Refills: 0 Carlos Jackson M.D. Start 18-May-2008 End Active 180 ML Bottle Sertraline HCl - 100 MG Oral Tablet [...] on: 05-Aug-2011 Influenza on: 23-Jun-2012 Lot #: [id number] Fluzone High-Dose SUSP on: 30-Jun-2013 Lot #: [id number] Fluzone High-Dose SUSP #1 on: 16-Jun-2014 Lot #: [id number] Fluzone High-Dose SUSP on: 09-Jun-2015 Lot #: [id number] Fluzone Quadrivalent 0.5 ML Intramuscular Suspension on: 15-May-2016 Lot #: [id number] Prevnar 13 Intramuscular Suspension on: 02-Oct-2016 Lot #: [id number] Family History Grandmother Name Dates Details Family [...] smoker Vital Signs Date Test Result Details 14:55 BP Systolic 134 mm[Hg] Status: Comments: Location: LUE; Position: Sitting BP Diastolic 74 mm[Hg] Status: Comments: Location: LUE; Position: Sitting Heart Rate 67 /min Status: Comments: Location: ; Weight 114.4 lb Status: Physical Findings 96 Status: Comments: O2 Saturation Body Mass Index Calculated 19.64 kg/m2 Status: Body Surface Area Calculated 1.54 m2 Status: 21-Jan-2017 09:54 BP Systolic 128 mm[Hg] Status: Comments: Location: ; Position: BP Diastolic 76 mm[Hg] Status: Comments: Location: ; Position: Heart [...] low Range: >60 threshold) EST GFR, NON-AFR [place] 49 ml/min (Below low Range: >60 threshold) Comments: EST GFR is reported in ml/min per 1.73 m2 of body surface area. ----- BUN:CREATININE RATIO 13 GLUCOSE 97 mg/dL Range: 70-100 CALCIUM 8.8 mg/dL Range: 8.5-10.1 10:46 VITAMIN B12 3606 VITAMIN B12 1535 pg/mL (Above high threshold) Range: 211-911 Plan of Care Name Dates Details Planned Observations Planned Goals not documented Planned Encounters Appointment; Provider: Carlos Jackson M.D. On 08-Oct-2017 13:45 Appointment; Provider: Zachary Painter M.D. On 23-Jul-2017 09:45 Appointment; Provider: Carlos Jackson M.D. On 18-Jun-2017 14:30 Appointment; Provider: Schedule Radiology On 10:50 Appointment; Provider: Cole Sprague M.D. On 10:30 Interventions Provided Medication ChangesDiclofenac Sodium 1 % Transdermal Gel - RenewPromethazine- Codeine 6.25-10 MG/5ML Oral Syrup - Renew Instructions Name Dates Details Instructions not documented Encounters Appointment; Zachary Painter M.D. On 21-Jan-2017 Encounter [...] Encounter Diagnosis: Problem not documented 10:45 Appointment; Zachayr Painter M.D. On 17-Jul-2015 Encounter Diagnosis: Problem [...]
--- OUTSIDE RECORDS SUMMARY | 2017-12-04 14:38 | External Medical Summary | Summary of Care ---
[...] on: 05-Aug-2011 Influenza on: 23-Jun-2012 Lot #: [id number] Fluzone High-Dose SUSP on: 30-Jun-2013 Lot #: [id number] Fluzone High-Dose SUSP #1 on: 16-Jun-2014 Lot #: [id number] Fluzone High-Dose SUSP on: 09-Jun-2015 Lot #: [id number] Fluzone Quadrivalent 0.5 ML Intramuscular Suspension on: 15-May-2016 Lot #: [id number] Prevnar 13 Intramuscular Suspension on: 02-Oct-2016 Lot #: [id number] Family History Grandmother Name Dates Details Family [...] low Range: >60 threshold) EST GFR, NON-AFR [place] 49 ml/min (Below low Range: >60 threshold) [...] Diagnosis: Problem not documented 08:00 Appointment; Zachary Paintre M.D. On 20-Dec-2015 Encounter Diagnosis: Problem not [...]
--- OUTSIDE RECORDS SUMMARY | 2017-12-04 14:38 | External Medical Summary | Summary of Care ---
:1940 Author Name Carlos Jackson M.D. Address [address] [place], [place] [id number] Care Team Providers Name Role Phone Cole [...] 6 HOURS NEEDED. Quantity: 1 Refills: 0 aCrlos Jackson M.D. Started 19-Sep-2009 Mzzndg187 ML Bottle Flovent HFA 220 MCG/ACT Inhalation Aerosol USE 1 PUFF TWICE DAILY.RINSE MOUTH AFTER USE. Quantity: 1 Refills: 1 Cole Sprague M.D. Started 01-Feb-2014 Moeepb80 GM Inhaler Voltaren 1 % Transdermal Gel APPLY DIRECTED TO AFFECTED AREA TID PRN Quantity: 1 Refills: 3 Carlos Jackson M.D. Started Wjfjpm834 GM Tube Cetirizine HCl - 10 MG [...] (790.1, R70.0) Status: Resolved History of fever (, Z87.898) Status: Resolved History of Long-term current use of steroids (V58.65) Status: Resolved History of renal insufficiency syndrome (V13., Z87.448) Status: Resolved History of vomiting (, Z87.898) Status: Resolved Procedures Procedure Dates Details [...] Administered on:05-Aug-2011 Influenza Administered on:23-Jun-2012 Lot #: [id number] Fluzone High-Dose Intramuscular Suspension Administered on:30-Jun-2013 Lot #: [id number] Fluzone High-Dose Intramuscular Suspension #1 Administered on:16-Jun-2014 Lot #: [id number] Family History Grandmother Name Dates Details Family [...] Diagnosis: Problem not documented 15:30 Appointment; Devang Shlel On 16-Jun-2014 Encounter Diagnosis: Problem not documented [...]
--- OUTSIDE RECORDS SUMMARY | 2017-12-04 14:39 | External Medical Summary | Summary of Care ---
:1940 Author Name Zachary Painter M.D. Address [address], [place] [address] Care Team Providers Name Role Phone Celestine [...] Status: Active Fall (E888.9, W19.XXXA) Status: Active Sea sickness (994.6, T75.3XXA) Status: Active History of Contusion of forehead, initial encounter (920, S00.83XA) Status: Resolved History of Closed head injury (959.01, S09.90XA) Status: Resolved Hypertension (401.9, I10) Status: Active [...] Administered on:05-Aug-2011 Influenza Administered on:23-Jun-2012 Lot #: [id number] Fluzone High-Dose Intramuscular Suspension Administered on:30-Jun-2013 Lot #: [id number] Fluzone High-Dose Intramuscular Suspension #1 Administered on:16-Jun-2014 Lot #: [id number] Fluzone High-Dose Intramuscular Suspension Administered on:09-Jun-2015 Lot #: [id number] Family History Grandmother Name Dates Details Family [...]
--- OUTSIDE RECORDS SUMMARY | 2017-12-04 14:39 | External Medical Summary | Summary of Care ---
:1940 Author Name Inocencio Givens, Zachary Alberto Address Unavailable Unavailable , Care Team Providers Name Role Phone Celestine Givens, Cole Thapa Unavailable Unavailable Mariya Givens, Marv Patterson Unavailable Unavailable WidCarin chen Unavailable Unavailable Inocencio Givens, Zachary Alberto Unavailable [...] obstructive pulmonary disease (496, J44.9) Status: Active Allergic rhinitis (477.9, J30.9) Status: Active Hypertension (401.9, I10) Status: Active Vitamin B 12 deficiency (266.2, E53.8) Status: Active Essential and other specified forms [...] TIMES DAILY DIRECTED. Quantity: 1 Refills: 0 Kenn Carin Start 13-Sep-2015 Active 22 GM Tube Cetirizine [...] Cataract Extract With Prosthesis Insert Right Eye VITAMIN B12 3606 Ordered: 22-Jul-2016 Immunization Name Dates Details Pneumo (Pneumovax) on: 12-Jul-2008 Influenza on: 10-May-2009 Influenza A (H1N1) Monoval Vac SUSP on: 12-Sep-2009 Influenza A (H1N1) Monoval PF SUSP on: 08-Jun-2010 Influenza A (H1N1) Monoval Vac SUSP on: 19-Jun-2011 Zoster (Zostavax) on: 05-Aug-2011 Influenza on: 23-Jun-2012 Lot #: [id number] Fluzone High-Dose SUSP on: 30-Jun-2013 Lot #: [id number] Fluzone High-Dose SUSP #1 on: 16-Jun-2014 Lot #: [id number] Fluzone High-Dose SUSP on: 09-Jun-2015 Lot #: [id number] Fluzone Quadrivalent 0.5 ML Intramuscular Suspension on: 15-May-2016 Lot #: [id number] Family History Grandmother Name Dates Details Family [...] smoker Vital Signs Date Test Result Details 24-Jul-2016 09:25 BP Systolic 122 mm[Hg] Status: Comments: Location: LUE; Position: Sitting BP Diastolic 64 mm[Hg] Status: Comments: Location: LUE; Position: Sitting Heart Rate 88 /min Status: Comments: Location: ; Weight 125.4 lb Status: Physical Findings 100 Status: Comments: O2 Saturation Body Mass Index Calculated 21.52 kg/m2 Status: Body Surface Area Calculated 1.6 m2 Status: Results Date Description Value Details Results not documented Plan of Care Name Dates Details Planned Observations Planned Goals not documented Planned Encounters Appointment; Provider: Schedule Radiology On 10:50 Appointment; Provider: Zachary Painter M.D. On 21-Jan-2017 09:45 Appointment; Provider: Cole Sprague M.D. On 02-Oct-2016 10:30 Appointment; Provider: Carlos Jackson M.D. On 27-Aug-2016 09:45 Instructions Name Dates Details Instructions not [...]
--- OUTSIDE RECORDS SUMMARY | 2017-12-04 14:39 | External Medical Summary | Summary of Care ---
:1940 Author Name Carlos Jackson M.D. Address [address] [facility] Unavailable [place], [place] [id number] Care Team Providers Name Role Phone Celestine Givens, Cole Thapa Unavailable Unavailable Jeremiah Givens, Shweta Unavailable Unavailable WidaprilCarin Unavailable Unavailable Renetta Givens, Carlos Anderson Unavailable [...] obstructive pulmonary disease (496, J44.9) Status: Active Acute infection of nasal sinus (461.9, J01.90) Status: Active Pain of left shoulder joint on movement (719.41, M25.512) Status: Active Medications Name Dates Details Pantoprazole [...] 1 Refills: 0 Carin Hawk Started 13-Sep-2015 Nzctoy06 GM Tube Azithromycin 250 MG Oral Tablet 2 pills day #1 1 pill day #2-5 Quantity: 6 Refills: 0 Shweta Daniels M.D. Started 12-Oct-2015 ActiveTraMADol HCl - 50 MG Oral Tablet TAKE 1 TABLET 4 TIMES DAILY NEEDED FOR PAIN. Quantity: 20 Refills: 0 Carlos Jackson M.D. Started 28-Nov-2015 Active Allergies and Adverse Reactions Name Dates [...] History of Spinal Percutaneous Vertebroplasty, Injection Thoracic XRay SHOULDER-Left Ordered:28-Nov-2015 MRI SHOULDER LEFT Ordered:28-Nov-2015 Immunization Name Dates Details Pneumo (Pneumovax) Administered on:12-Jul-2008 Influenza Administered on:10-May-2009 Influenza A (H1N1) Monoval Vac Intramuscular Suspension Administered on:2009 Influenza A (H1N1) Monoval PF Intramuscular Suspension Administered on:2009 Influenza A (H1N1) Monoval Vac Intramuscular Suspension Administered on: Zoster (Zostavax) Administered on:05-Aug-2011 Influenza Administered on:23-Jun-2012 Lot #: [id number] Fluzone High-Dose Intramuscular Suspension Administered on:30-Jun-2013 Lot #: [id number] Fluzone High-Dose Intramuscular Suspension #1 Administered on:16-Jun-2014 Lot #: [id number] Fluzone High-Dose Intramuscular Suspension Administered on:09-Jun-2015 Lot #: [id number] Family History Grandmother Name Dates Details Family [...] smoker Vital Signs Date Test Result Details 28-Nov-2015 09:39 BP Systolic 136 mm[Hg] Status: [...] Zenaida Maurice On 09-Sep-2008 09:45 Appointment; Provider: Zenadia Maurice On 07-Sep-2008 15:45 Appointment; Provider: Zenaida Maurice On 06-Sep-2008 14:30 Appointment; Provider: Cole Sprague On 05-Sep-2008 13:15 Appointment; Provider: Zenaida Maurice On 05-Sep-2008 07:15 Appointment; Provider: Carlos Jackson On 06-Jul-2008 08:30 Appointment; Provider: Pamela Lopez On 17-May-2008 15:00 Appointment; Provider: Cole Sprague On 12-Apr-2008 14:00 Instructions Instructions not documented Encounters Appointment; Carlos Jackson On 28-Nov-2015 Encounter Diagnosis: [...]
--- OUTSIDE RECORDS SUMMARY | 2017-12-04 14:39 | External Medical Summary | Summary of Care ---
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 Started 16-Jun-2015 ActivePromethazine-Codeine 6.25-10 MG/5ML Oral Syrup TAKE ONE TEASPOONFUL BY MOUTH EVERY FOUR HOURS NEEDED FOR COUGH Quantity: 120 Refills: 0 Carlos Jackson M.D. Started 18-Aug-2015 ActiveCyanocobalamin 1000 MCG/ML Injection Solution INJECT 1 ML INTRAMUSCULARLY ONCE A MONTH Refills: 0 Carlos Jackson M.D. Started 23-Aug-2015 ActiveMupirocin 2 % External Ointment APPLY A SMALL AMOUNT 3 TIMES DAILY DIRECTED. Quantity: 1 Refills: 0 Carin Hawk Started 13-Sep-2015 [id number] GM Tube TraMADol HCl - 50 MG Oral Tablet TAKE 1 TABLET 4 TIMES DAILY NEEDED FOR PAIN. Quantity: 20 Refills: 0 Carlos Jackson M.D. Started 28-Nov-2015 Active Allergies and Adverse Reactions Name Dates Details Brovana NEBU Status: Active Effexor TABS Status: Active Sulfa [...] Administered on:05-Aug-2011 Influenza Administered on:23-Jun-2012 Lot #: [id number] Fluzone High-Dose Intramuscular Suspension Administered on:30-Jun-2013 Lot #: [id number] Fluzone High-Dose Intramuscular Suspension #1 Administered on:16-Jun-2014 Lot #: [id number] Fluzone High-Dose Intramuscular Suspension Administered on:09-Jun-2015 Lot #: [id number] Family History Grandmother Name Dates Details Family [...] smoker Vital Signs Date Test Result Details 18-Dec-2015 10:22 BP Systolic 136 mm[Hg] Status: [...] Provider: Carlos Jackson On 15:30 Appointment; Provider: Melly Funk On 21-Dec-2015 11:00 Appointment; Provider: Zachary Painter On 20-Dec-2015 08:15 Appointment; Provider: Melly Funk On 19-Dec-2015 11:00 Appointment; Provider: Schedule Radiology On 06-Dec-2015 15:00 [...] 14:00 Instructions Instructions not documented Encounters Appointment; Kehinde Mcmullen On 18-Dec-2015 Encounter Diagnosis: [...]
--- OUTSIDE RECORDS SUMMARY | 2017-12-04 14:40 | External Medical Summary | Summary of Care ---
:1940 Author Name Carlos Jackson M.D. Address [address], [place] [id number] Care Team Providers Name Role Phone Cole [...] 1 Refills: 0 Carin Hawk Started 13-Sep-2015 [id number] GM Tube Cetirizine HCl - 10 MG [...] Administered on:05-Aug-2011 Influenza Administered on:23-Jun-2012 Lot #: [id number] Fluzone High-Dose Intramuscular Suspension Administered on:30-Jun-2013 Lot #: [id number] Fluzone High-Dose Intramuscular Suspension #1 Administered on:16-Jun-2014 Lot #: [id number] Fluzone High-Dose Intramuscular Suspension Administered on:09-Jun-2015 Lot #: [id number] Family History Grandmother Name Dates Details Family [...] GFR, 59 ml/min (Below low Range: >60 EC[place]ORE[place] threshold) EST GFR, NON-AFR 49 ml/min (Below low Range: >60 [place] threshold) Comments: EST GFR is reported in ml/min per 1.73 m2 of body surface area. For -Nepalese, please multiple result by 1.2.----- BUN:CREATININE RATIO 11 (Better) GLUCOSE 101 mg/dL (Above high Range: 70-100 threshold) CALCIUM 8.7 mg/dL (Better) Range: 8.5-10.1 09:41 Urinalysis, reflex to Comments: Fastin hours Micro and Culture ([facility]) 8016 pH 6.0 (Better) Range: 5.0-7.5 SP [...] 5.4-20.8 10:11 ECG/ EKG Preop Electro CardioGram ECG waiting for interpretation, click ImageLink button to view/confirm the study. (Better) 10:27 XRay CHEST-PA & LAT Comments: Exam Date: 02/07/2016 09: 49Dictation Date: 02/07/2016 10:27 X CHEST PA & LAT (Better) Plan of Care Planned Observations Name Dates Details Planned Goals not documented Goal Planned Encounters Appointment; Provider: Zachary Painter On 24-Jul-2016 09:15 Appointment; Provider: Marv Meraz On 09:00 Appointment; Provider: Marv Meraz On 08:15 Appointment; Provider: Marv Meraz On 09:30 Appointment; Provider: Marv Meraz On 13:30 Appointment; Provider: Marv Meraz On 08:15 Appointment; Provider: Marv Meraz On 08:45 Appointment; Provider: Cole Sprague On 16:00 Appointment; Provider: aMrv Meraz On 09:00 Appointment; Provider: Schedule Radiology On [...]
--- OUTSIDE RECORDS SUMMARY | 2017-12-04 14:40 | External Medical Summary | Summary of Care ---
:1940 Author Name Zachary Painter M.D. Address [address], [place] [id number] Care Team Providers Name Role Phone Celestine [...] 1 Refills: 0 Carin Hawk Started 13-Sep-2015 [id number] GM Tube TraMADol HCl - 50 MG [...] Administered on:05-Aug-2011 Influenza Administered on:23-Jun-2012 Lot #: [id number] Fluzone High-Dose Intramuscular Suspension Administered on:30-Jun-2013 Lot #: [id number] Fluzone High-Dose Intramuscular Suspension #1 Administered on:16-Jun-2014 Lot #: [id number] Fluzone High-Dose Intramuscular Suspension Administered on:09-Jun-2015 Lot #: [id number] Family History Grandmother Name Dates Details Family [...] Encounter Diagnosis: Problem not documented 08:15 Appointment; Zachary Painter On 20-Dec-2015 Encounter Diagnosis: [...]
--- OUTSIDE RECORDS SUMMARY | 2017-12-04 14:40 | External Medical Summary | Summary of Care ---
:1940 Author Name Jeremiah Givens, Shweta Address [address] [place]available [place], [place] [id number] Care Team Providers Name Role Phone Celestine Givens, Cole Thapa Unavailable Unavailable Jeremiah Givens, Shweta Unavailable Unavailable Carin Hawk Unavailable Unavailable Carlos [...] of nasal sinus (461.9, J01.90) Status: Active Medications Name Dates Details Pantoprazole Sodium 40 MG Oral Tablet Delayed Release TAKE 1 TABLET BY MOUTH TWICE A DAY 30 MINUTES BEFORE BREAKFAST & DINNER Quantity: 60 Refills: 6 Cole Sprague M.D. Started 04-Feb-2008 ActiveVoltaren 1 % Transdermal Gel APPLY DIRECTED TO AFFECTED AREA THREE TIMES A DAY NEEDED Quantity: 100 Refills: 0 Carlos Jackson M.D. Started ActiveSertraline HCl - 100 MG Oral Tablet take 1 tablet by mouth every day Quantity: 30 Refills: 5 Carlos Jackson M.D. Started ActiveFluticasone Propionate 50 [...] 1 Refills: 0 Carin Hawk Started 13-Sep-2015 [id number] GM Tube Azithromycin 250 MG Oral Tablet 2 pills day #1 1 pill day #2-5 Quantity: 6 Refills: 0 Shwtea Daniels M.D. Started 12-Oct-2015 Active Allergies and Adverse Reactions Name Dates [...] Administered on:05-Aug-2011 Influenza Administered on:23-Jun-2012 Lot #: [id number] Fluzone High-Dose Intramuscular Suspension Administered on:30-Jun-2013 Lot #: [id number] Fluzone High-Dose Intramuscular Suspension #1 Administered on:16-Jun-2014 Lot #: [id number] Fluzone High-Dose Intramuscular Suspension Administered on:09-Jun-2015 Lot #: [id number] Family History Grandmother Name Dates Details Family [...] smoker Vital Signs Date Test Result Details 12-Oct-2015 13:15 BP Systolic 122 mm[Hg] Status: BP Diastolic 70 mm[Hg] Status: Temperature 97.3 f Status: Heart Rate 80 /min Status: Respiration Rate 16 /min Status: Weight 128 lb Status: Body Mass Index Calculated 21.97 kg/m2 Status: Body Surface Area Calculated 1.62 m2 Status: 04-Oct-2015 13:26 BP Systolic 128 mm[Hg] Status: [...] 14:00 Instructions Instructions not documented Encounters Appointment; Shweta Daniels On 12-Oct-2015 Encounter Diagnosis: [...]
--- OUTSIDE RECORDS SUMMARY | 2017-12-04 14:40 | External Medical Summary | Summary of Care ---
:1940 Author Name Torres Cameron D.O. Address [address] [place], [place] [id number] Care Team Providers Name Role Phone Cole [...] and Adverse Reactions Name Dates Details Noreena GORDO Status: Active Effexor TABS Status: Active [...] (788.1, R30.0) Status: Resolved History of edema (, Z87.898) Status: Resolved History of Elevated erythrocyte sedimentation rate (790.1, R70.0) Status: Resolved History of fever (., Z87.898) Status: Resolved History of Long-term current use of steroids (V58.65) Status: Resolved History of renal insufficiency syndrome (V13.09, Z87.448) Status: Resolved History of vomiting (, Z87.898) Status: Resolved Procedures Procedure Dates Details History of Appendectomy History of Tonsillectomy History of Total Abdominal Hysterectomy With Removal Of Both Ovaries History of Spinal Percutaneous Vertebroplasty, Injection Thoracic Colonoscopy- Screening or Dx Ordered: CBC w/ Auto Diff 7150 Ordered: Comprehensive Metabolic Panel 1212 Ordered: LIPID PROFILE 1184 Ordered: THYROID STIM. HORMONE 3602 Ordered: VITAMIN B12 3606 Ordered:19-May-2015 FOLATE 3608 Ordered:19-May-2015 FREE T4 3604 Ordered:19-May-2015 THYROID STIM. HORMONE 3602 Ordered:19-May-2015 Vitamin D, 25 - Hydroxy 3111 Ordered:19-May-2015 CT HEAD WITHOUT IV CONTRAST Ordered:19-May-2015 Immunization Name Dates Details Pneumo (Pneumovax) Administered on:12-Jul-2008 Influenza Administered on:10-May-2009 Influenza A (H1N1) Monoval Vac Intramuscular Suspension Administered on:2009 Influenza A (H1N1) Monoval PF Intramuscular Suspension Administered on:2009 Influenza A (H1N1) Monoval Vac Intramuscular Suspension Administered on: Zoster (Zostavax) Administered on:05-Aug-2011 Influenza Administered on:23-Jun-2012 Lot #: [id number] Fluzone High-Dose Intramuscular Suspension Administered on:30-Jun-2013 Lot #: [id number] Fluzone High-Dose Intramuscular Suspension #1 Administered on:16-Jun-2014 Lot #: [id number] Family History Grandmother Name Dates Details Family [...]
--- OUTSIDE RECORDS SUMMARY | 2017-12-04 14:41 | External Medical Summary | Summary of Care ---
:1940 Author Name Carlos Jackson M.D. Address Unavailable Unavailable , Care Team Providers Name Role Phone Celestine Givens, oCle Thapa Unavailable Unavailable Widapril Carin Unavailable Unavailable [...] on: 05-Aug-2011 Influenza on: 23-Jun-2012 Lot #: [id number] Fluzone High-Dose SUSP on: 30-Jun-2013 Lot #: [id number] Fluzone High-Dose SUSP #1 on: 16-Jun-2014 Lot #: [id number] Fluzone High-Dose SUSP on: 09-Jun-2015 Lot #: [id number] Fluzone Quadrivalent 0.5 ML Intramuscular Suspension on: 15-May-2016 Lot #: [id number] Prevnar 13 Intramuscular Suspension on: 02-Oct-2016 Lot #: [id number] Family History Grandmother Name Dates Details Family [...] 10:30 Appointment; Provider: Carlos Jackson M.D. On 14:45 Instructions Name Dates Details Instructions not documented [...]
--- OUTSIDE RECORDS SUMMARY | 2017-12-04 14:41 | External Medical Summary | Summary of Care ---
:1940 Author Name Carlos Jackson M.D. Address [address], [place] [id number] Care Team Providers Name Role Phone Cole [...] 1 Refills: 0 Carin Hawk Started 13-Sep-2015 [id number] GM Tube Cetirizine HCl - 10 MG [...] Preop Pendin02-Feb-2016 BASIC METABOLIC PROFILE 1210 Ordered:02-Feb-2016 XRay CHEST-PA & LAT Ordered:02-Feb-2016 Immunization Name Dates Details Pneumo (Pneumovax) Administered on:12-Jul-2008 Influenza Administered on:10-May-2009 Influenza A (H1N1) Monoval Vac Intramuscular Suspension Administered on:2009 Influenza A (H1N1) Monoval PF Intramuscular Suspension Administered on:2009 Influenza A (H1N1) Monoval Vac Intramuscular Suspension Administered on: Zoster (Zostavax) Administered on:05-Aug-2011 Influenza Administered on:23-Jun-2012 Lot #: [id number] Fluzone High-Dose Intramuscular Suspension Administered on:30-Jun-2013 Lot #: [id number] Fluzone High-Dose Intramuscular Suspension #1 Administered on:16-Jun-2014 Lot #: [id number] Fluzone High-Dose Intramuscular Suspension Administered on:09-Jun-2015 Lot #: [id number] Family History Grandmother Name Dates Details Family [...] Provider: Marv Meraz On 08:45 Appointment; Provider: Marv Meraz On 09:00 Appointment; [...]
--- OUTSIDE RECORDS SUMMARY | 2017-12-04 14:41 | External Medical Summary | Summary of Care ---
:1940 Author Name Carlos Mujica M.D. Address Unavailable Unavailable , Care Team Providers Name Role Phone Celestine Givens, Cole Thapa Unavailable Unavailable Carlos Mujica M.D. Unavailable Unavailable WidCarin chen Unavailable Unavailable Renetta [...] S01.91XA) Status: Active Medications Name Dates Details Promethazine-Codeine [...] and Adverse Reactions Name Dates Details Sonia MCCABEU (Allergy) Status: Active Effexor TABS (Allergy) Status: [...] on: 05-Aug-2011 Influenza on: 23-Jun-2012 Lot #: [id number] Fluzone High-Dose SUSP on: 30-Jun-2013 Lot #: [id number] Fluzone High-Dose SUSP #1 on: 16-Jun-2014 Lot #: [id number] Fluzone High-Dose SUSP on: 09-Jun-2015 Lot #: [id number] Fluzone Quadrivalent 0.5 ML Intramuscular Suspension on: 15-May-2016 Lot #: [id number] Prevnar 13 Intramuscular Suspension on: 02-Oct-2016 Lot #: [id number] Family History Grandmother Name Dates Details Family [...] smoker Vital Signs Date Test Result Details 14:00 BP Systolic 160 mm[Hg] Status: Comments: Location: LUE; Position: Sitting BP Diastolic 82 mm[Hg] Status: Comments: Location: LUE; Position: Sitting Temperature 98.2 f Status: Heart Rate 80 /min Status: Comments: Location: ; Physical Findings 96 Status: Comments: O2 Saturation 14:55 BP Systolic 134 mm[Hg] Status: Comments: Location: ; Position: BP Diastolic 74 mm[Hg] Status: Comments: Location: ; Position: Heart Rate 67 /min Status: Comments: Location: [...] low Range: >60 threshold) EST GFR, NON-AFR CANADIAN 49 ml/min (Below low Range: >60 threshold) [...] Cole Sprague M.D. On 10:30 Appointment; Provider: Schedule Radiology On 15:30 Interventions Provided Labs/Procedures/ImagingCT HEAD WITHOUT IV CONTRAST; Done: Feb 13 2017 3: 44PMXRay RIBS-Left W/PA CXR; Done: Feb 13 2017 2:44PM Instructions Name Dates Details Instructions not documented Encounters Appointment; Carlos Jackson M.D. On Encounter Diagnosis: [...]
--- OUTSIDE RECORDS SUMMARY | 2017-12-04 14:41 | External Medical Summary ---
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 [...]
--- OUTSIDE RECORDS SUMMARY | 2017-12-04 14:41 | External Medical Summary | Summary of Care ---
:1940 Author Name Fernandez Malik P.T. Address [address] [place], [place] [phone] Care Team Providers Name Role Phone Cole [...] 1 Refills: 0 Carin Hawk Started 13-Sep-2015 [id number] GM Tube TraMADol HCl - 50 MG [...] Administered on:05-Aug-2011 Influenza Administered on:23-Jun-2012 Lot #: [id number] Fluzone High-Dose Intramuscular Suspension Administered on:30-Jun-2013 Lot #: [id number] Fluzone High-Dose Intramuscular Suspension #1 Administered on:16-Jun-2014 Lot #: [id number] Fluzone High-Dose Intramuscular Suspension Administered on:09-Jun-2015 Lot #: [id number] Family History Grandmother Name Dates Details Family [...] Melly Funk On 19-Dec-2015 11:00 Appointment; Provider: Kehinde Mcmullen On 18-Dec-2015 10:00 Appointment; Provider: Schedule Radiology On 06-Dec-2015 15:00 [...] 14:00 Instructions Instructions not documented Encounters Appointment; Fernandez Malik On 14-Dec-2015 Encounter Diagnosis: [...] Diagnosis: Problem not documented 14:00 Appointment; Carlos Jackosn On Encounter Diagnosis: Problem not documented 09:45 [...]
--- OUTSIDE RECORDS SUMMARY | 2017-12-04 14:42 | External Medical Summary | Summary of Care ---
:1940 Author Name Carlos Jackson M.D. Address [address] [facility] Unavailable [place], [place] [phone] Care Team Providers Name Role Phone Celestine Givens, Cole Thapa Unavailable Unavailable Jeremiah Givens, Shweta Unavailable Unavailable Carin Hawk Unavailable Unavailable Renetta [...] 1 Refills: 0 Carin Hawk Started 13-Sep-2015 [id number] GM Tube Azithromycin 250 MG Oral Tablet [...] History of Spinal Percutaneous Vertebroplasty, Injection Thoracic MRI SHOULDER LEFT Ordered:28-Nov-2015 Immunization Name Dates Details Pneumo (Pneumovax) Administered on:12-Jul-2008 Influenza Administered on:10-May-2009 Influenza A (H1N1) Monoval Vac Intramuscular Suspension Administered on:2009 Influenza A (H1N1) Monoval PF Intramuscular Suspension Administered on:2009 Influenza A (H1N1) Monoval Vac Intramuscular Suspension Administered on: Zoster (Zostavax) Administered on:05-Aug-2011 Influenza Administered on:23-Jun-2012 Lot #: [id number] Fluzone High-Dose Intramuscular Suspension Administered on:30-Jun-2013 Lot #: [id number] Fluzone High-Dose Intramuscular Suspension #1 Administered on:16-Jun-2014 Lot #: [id number] Fluzone High-Dose Intramuscular Suspension Administered on:09-Jun-2015 Lot #: [id number] Family History Grandmother Name Dates Details Family [...] X SHOULDER COMP (MIN 2V) LT (Better) Plan of Care Planned Observations Name [...]
[2017-12-04] MEDS ORDERED: LORazepam 0.5 MG TABLET PO PRN (15:39)
[2017-12-04] MEDS ORDERED: HALOPERIDOL 0.5 MG TABLET PO PRN (15:39)
[2017-12-04] MEDS ORDERED: HALOPERIDOL 5 MG/ML INJECTION IM PRN (15:39)
[2017-12-04] MEDS ORDERED: MAG-AL + SIM ORAL LIQUID 30ml PO PRN (15:43)
[2017-12-04 16:42] VITALS: BMI 21.4
[2017-12-05] MEDS: FLUTICASONE NASAL SPRAY 50mcg EA NOSTRIL SCH (08:40)
[2017-12-05] MEDS: OMEPRAZOLE 20 MG CAPSULE PO SCH ×2 (08:41→10:22)
[2017-12-05] MEDS: CYANOCOBALAMIN (B-12) 500mcg TABLET PO SCH ×2 (08:41→10:22)
[2017-12-05] MEDS: SERTRALINE 100 MG TABLET PO SCH ×2 (08:42→10:22)
--- NOTE | 2017-12-05 13:23 | History & Physical Report ---
History of Present Illness Date: 12/05/17 Chief complaint: acute psychosis, dementia with behaviors HPI: Deonte Farrar (Jeannie) is a 77-year-old female patient of Dr. Carlos Jackson who currently resides at a fdc in [place]. She was brought to [facility] ED for clearance to be admitted to the [facility] unit due to acute psychosis. She has a known history of dementia, Parkinson's disease, anxiety, depression and history of alcohol abuse with recent alcohol use. Over the past year, she has admitted to visual hallucinations stating that she sees groups of people and animals. Recently, she has become increasingly more paranoid of the staff and other people at the fdc. She is also experiencing auditory hallucinations in addition to her visual hallucinations which have resulted in her becoming more distressed and agitated. Nursing reports that she tries not to sleep due to people talking to her and touching her. She has become increasingly more verbally and physically aggressive. Evaluation in the ED was unremarkable. She was noted to have a cough with congestion which she states has been present for the past few days. She denies any known fever or chills but is noted to have had a temperature of 100.3 since admission. She denies any chest pain, shortness of breath, abdominal pain, nausea, vomiting or dysuria. MRI of the brain on 11/24/17 was unchanged from prior exam and revealed generalized cerebral atrophy with changes consistent with chronic ischemic microvascular disease. Due to her acute psychosis and dementia with behavioral disturbance, she was admitted to [facility] unit for further psychiatric evaluation and treatment. The hospitalist service was consulted for medical management. Prior medical records were reviewed extensively. Review of Systems ROS unobtainable: due to mental status (dementia) All systems PM: 10-point ROS was reviewed, no additional remarkable complaints except - Constitutional Constitutional: Absent: chills, fever(s), weakness - EENMT Eyes: Absent: photophobia Ears: Absent: ear pain Balance: Absent: vertigo, falling to one side Nose: Present: allergies. Absent: nosebleeds Mouth/Throat: Absent: sore throat, changes in swallowing, dry mouth - Cardiovascular Cardiovascular: Absent: chest pain, palpitations, syncope, dyspnea on exertion, orthopnea, edema Rhythm: Present: regular rhythm Vascular: Absent: pallor of an extermity, pedal edema - Respiratory Respiratory: Present: cough, chest congestion. Absent: dyspnea, hemoptysis, dyspnea on exertion, wheezing, pain on inspiration - Gastrointestinal Gastrointestinal: Absent: abdominal pain, constipation, diarrhea, hematochezia, melena, nausea, vomiting - Genitourinary Genitourinary: Absent: dysuria, flank pain, hematuria Menstruation: post hysterectomy - Musculoskeletal Musculoskeletal: Absent: back pain, deformity - Integumentary/Breasts Integumentary: Absent: rash - Neurological Neurological: Present: tremor(s). Absent: dizziness, focal weakness, weakness - Psychiatric Psychiatric: Present: abnormal sleep pattern, anxiety, auditory hallucinations, behavioral changes, depression, paranoia, visual hallucinations - Endocrine Endocrine: Absent: flushing, palpitations - Hematologic/Lymphatic Hematologic/Lymphatic: Absent: easy bruising - Allergic/Immunologic Allergic/Immunologic: Present: seasonal rhinorrhea Past Medical History Family History: Unable to Obtain Medications Home Medications Medication Instructions Recorded Confirmed Type Acetaminophen 650 mg PO Q4H PRN 12/04/17 12/04/17 History Cetirizine [Zyrtec] 10 mg PO DAILY 12/04/17 12/04/17 History Cyanocobalamin (Vitamin B-12) 2,500 mcg PO DAILY 12/04/17 12/04/17 History [Vitamin B12] Fluticasone Nasal [place] [Flonase] 1 spray EA NOSTRIL DAILY 12/04/17 12/04/17 History Ibuprofen 200 mg PO Q4H PRN 12/04/17 12/04/17 History LORazepam [Ativan] 0.5 mg PO Q8H PRN 12/04/17 12/04/17 History Loperamide HCl [Imodium A-D] 2 mg PO PRN PRN 12/04/17 12/04/17 History Mag Hydrox/Aluminum Hyd/Simeth 15 ml PO Q4H PRN 12/04/17 12/04/17 History [Alum-Mag Hydroxide-Simeth Liq] Milk of Magnesia [Mom] 30 ml PO DAILY PRN 12/04/17 12/04/17 History Omeprazole [Prilosec] 20 mg PO DAILY 12/04/17 12/04/17 History Promethazine + Cod Liq [Phenergan 5 - 10 ml PO Q4H PRN 12/04/17 12/04/17 History + Codeine] Sertraline [Zoloft] 100 mg PO DAILY 12/04/17 12/04/17 History guaiFENesin [Guaifenesin] 5 ml PO Q4H PRN 12/04/17 12/04/17 History Allergies Allergy/AdvReac Type Severity Reaction Status Date / Time arformoterol [From Brovana] Allergy Unknown Verified 12/04/17 14:25 venlafaxine [From Effexor] Allergy Unknown Verified 12/04/17 14:25 Exam Vital Signs: Temperature 99 F 12/05/17 11:54 Pulse Rate 77 12/05/17 08:00 Respiratory Rate 22 12/05/17 08:00 Blood Pressure 123/72 12/05/17 08:00 Pulse Oximetry 95 12/05/17 09:50 Height/Weight/BMI: Height 5 ft 4 in Weight 124 lb 12.506 oz Body Mass Index 21.4 Comments: Patient is resting in room and resistant to exam and answering questions. She has refused medications, eating and obtaining CXR. - Constitutional Present: no acute distress, thin Comments: Resistant to exam and provides limited information. - Routine HEENT Exam Head: Present: normocephalic, atraumatic Eye: Present: PERRL. Absent: conjunctival icterus ENT: Present: mucous membranes dry - Routine Neck Exam Present: supple, full ROM, trachea midline - Routine Chest/Breast/Axilla Exam Chest wall: Absent: tenderness - Routine Respiratory Exam Present: decreased breath sounds. Absent: accessory muscle use, dyspnea, respiratory distress Comments: Patient appears to be comfortable; no signs of respiratory distress; limited exam due to patient refusing to take deep breaths; sounds congested - Routine Cardiovascular Exam Present: RRR, S1, S2 - Routine Abdominal Exam Present: soft, normoactive bowel sounds, non distended, non tender - Routine Extremities Exam Present: no edema, full ROM - Routine Back/Spine/Pelvis Exam Back/Spine: Present: full ROM. Absent: vertebral tenderness - Routine Skin Exam Present: dry, warm. Absent: jaundice Comments: afebrile. - Routine Neurological Exam Present: alert, moving all extremities, hearing grossly intact, normal speech orientated to self only. - Routine Psychiatric Exam Present: unable to assess Comments: Easily agitated and abrasive on exam. Refusing evaluation and treatment. Results - Labs CBC & Chem 7: 12/04/17 14:33 12/04/17 14:33 Assessment and Plan (1) Psychosis Current visit: Yes Status: Acute (2) Dementia with behavioral disturbance Current visit: Yes Status: Acute Assessment and Plan: Assessment: Acute psychosis, present on admission. Hallucinations, visual and auditory, present on admission. Dementia with behavioral disturbance, present on admission. Anemia, unspecified, present on admission. Hypertension. Hyperlipidemia. Parkinson's disease. COPD. Sleep apnea. Allergic rhinitis. GERD. Osteoarthritis. Essential and intentional tremors. Depression. Anxiety. History of alcohol abuse. Chronic kidney disease, stage III. Plan - 12/06/17: Agree with admission to [facility] unit. Hospitalist service consulted for medical management. Initial labs relatively unremarkable - Hgb 11.5. Monitor periodically throughout admission. Fever - 100.3, with cough and congestion noted - will try and obtain CXR. Patient currently refusing medications, CXR and eating. Will discuss with family their wishes with regard to possible treatment measures for the patient (ie. IVs, PEG placement, labs, etc). Will continue home guaifenesin for cough. Monitor respiratory function closely. Provide safe and supportive environment. Upon discharge, patient's care will be returned to her PCP, Dr. Jackson. Patient requests to be a DNR - documentation on chart. GI Prophylaxis: other (Prilosec) Resuscitation Status: Do Not Resuscitate - Time spent with patient Time with patient PN: 50 minutes - Physician Narrative Physician: other (Dr. Rosa) Narrative: Date: 12/05/17 Time: 1715 Patient was seen and examined independently. Agree with above documentation. Patient resting comfortably in bed on exam. Plan: agree with admission to psych. Hospital Course Summary Disclaimer: The visit summary below is not to be considered part of the above Progress Note. Hospital Course: Plan - 12/06/17: Agree with admission to [facility] unit. Hospitalist service consulted for medical management. Initial labs relatively unremarkable - Hgb 11.5. Monitor periodically throughout admission. Fever - 100.3, with cough and congestion noted - will try and obtain CXR. Patient currently refusing medications, CXR and eating. Will discuss with family their wishes with regard to possible treatment measures for the patient (ie. IVs, PEG placement, labs, etc). Will continue home guaifenesin for cough. Monitor respiratory function closely. Provide safe and supportive environment. Upon discharge, patient's care will be returned to her PCP, Dr. Jackson. Patient requests to be a DNR - documentation on chart.
[2017-12-05] MEDS ORDERED: GUAIFENESIN 200mg/10ml ORAL LIQUID PO PRN (13:36)
--- NOTE | 2017-12-05 13:46 | 24 Hour Neuropsychiatic Eval ---
Date of Admission: 12/04/17 16:20 Chief complaint: "I have no idea what it was but it was definitely put in a golf ball" History of Present Illness: Patient is a 77-year-old female who was admitted to [facility], operated by [facility] for psychiatric evaluation and stabilization on 12/04/17. Patient was sent from [facility] in [place], [place] and has previous diagnoses of dementia and Parkinson's disease. She also has a history of alcoholism and has been drinking until ~1 week ago. (Her friends reportedly take her to dinner and buy her alcohol). She has recently been having increasing paranoia, agitation, visual hallucinations and poor sleep. On interview, patient is oriented to self only. She is restless, trying to walk , and very unsteady. She is quite labile/irritable and doesn't want assistance. When asked what happened that she cam here, she responds, "I don't know but it definitely was put in a golf ball." She then begins calling out for Daljit and Zuly, refusing to answer further interview questions. She is observed to have difficulty with naming impairment and seems to be having frequent VH. An MRI on 11/24/17 showed generalized cerebral atrophy and chronic ischemic microvascular disease. Patient has a family friend as DPOA. DPOA reported to that patient began having VH once put on meds for Parkinson's but these continued after med discontinuation as well. She has also lost 25 lb. recently. Since admission, patient has now started running a temperature and has a cough, but refuses CXR. Consulted DPOA, who requested that all means be used to get chest x-ray and initiate antibiotic treatment if warranted. Psychosis: Hallucinations/Illusions, Disorganized speech, Disorganized behavior Dementia: Memory Impairment, Poor Executive Functioning Reviewed: Home Medications, Allergies, Current Lab Data, Nursing Notes, Physician Consults [facility] Patient Stated Medical History Dementia Yes Parkinson's Disease Yes Other HEENT Yes: WEARS GLASSES Hypertension Yes Chronic Obstructive Pulmonary Yes Disease (COPD) Sleep Apnea Yes Other Respiratory Yes: ALLERGIES Gastroesophageal Reflux Yes Disease Surgical History: Appendectomy. Cataract removal, bilateral. Spinal percutaneous vertebroplasty. Tonsillectomy. Total abdominal hysterectomy. Family History: Unable to obtain psychiatric family history from patient. Family History Updates: Mother - breast cancer, tremor. Brother - tremor. Maternal grandmother - CAD, hypertension. - Social History Smoking status: Never smoker Substance use type: does not use Alcohol intake frequency: other (history of frequent alcohol use up until ~1 week ago) Last drink: days (ago) Housing: shelter Household members: none Current occupational status: retired Does patient use chewing tobacco?: No Current residence: [facility] Social history: Strengths: Has DPOA, placement Review of Systems ROS unobtainable: due to mental status - EENMT Ears: Absent: ear pain Balance: Absent: vertigo, falling to one side Nose: Present: allergies. Absent: nosebleeds Mouth/Throat: Absent: sore throat, changes in swallowing, dry mouth - Cardiovascular Rhythm: Present: regular rhythm Vascular: Absent: pallor of an extermity, pedal edema - Genitourinary Menstruation: post hysterectomy Mental Status Exam Vitals: Last Vital Signs Temp 98.7 F 12/05/17 13:28 Pulse 77 12/05/17 08:00 Resp 22 12/05/17 08:00 BP 123/72 12/05/17 08:00 Pulse Ox 95 12/05/17 09:50 Height: 1.63 m Weight: 56.6 kg - Mental Status Exam Muscle Strength/Tone: Weak (patient does not allow me to touch her but gait appears shuffled, unsteady) Dressing: Casual Grooming: Disheveled Attitude: Uncooperative, Argumentative Motor Activity: Restless Eye Contact: Poor Speech: Slowed Volume: Normal Rhythm: Appropriate Rhythm Sensory: Alert Orientation: Disoriented to time, Disoriented to place, Disoriented to situation , Oriented to person Mood: Other (Does not answer but has irritable, labile affect) Rate of Thoughts: Delayed Thought Organization: Disorganized, Confused Associations: Illogical Abstract Reasoning: Impaired, concrete Thought Content: Paranoia Perception/Psychotic: Psychotic Current Hallucinations: Visual (frequent) Language: Naming Impaired Fund of Knowledge: Poor fund of knowledge Memory: Poor-immediate, Poor-recent, Poor-remote Suicidal Ideation: Other (Does not answer) Homicidal Ideation: Other (Does not answer) Insight: Impaired Judgement: Impaired Impulse Control: Poor - Laboratory Result Diagrams: 12/04/17 14:33 12/04/17 14:33 Assessment and Plan (1) Psychosis Problem details: R/O Alcohol withdrawal delirium R/O Wernicke's encephalopathy R/O Delirium secondary to unknown etiology R/O Lewy body dementia Current visit: Yes Status: Acute (2) History of Parkinson's disease Current visit: Yes Status: Acute (3) Alcohol use disorder Current visit: Yes Status: Acute (4) Major neurocognitive disorder Problem details: Other medical conditions: Anemia, unspecified, present on admission. Hypertension. Hyperlipidemia. COPD. Sleep apnea. Allergic rhinitis. GERD. Osteoarthritis. Essential and intentional tremors. Chronic kidney disease, stage III. Current visit: Yes Status: Acute Agree with admission to [facility] for psychiatric evaluation and stabilization. Maintain safety and elopement precautions. Obtain additional collateral from family, facility as patient is a poor historian. Standard labs: CBC, CMP, TSH, UA, Vitamin B12 and folate. Attempting to get chest x-ray due to fever that has developed since admission. Have consulted hospitalist for management of medical comorbidities. Patient remains a high fall risk but is not showing any signs of alcohol withdrawal. Differential remains wide, primarily LBD vs. Wernicke's vs. delirium. Will start very low dose Seroquel 12.5mg PO TID and monitor response; patient may be quite sensitive to antipsychotics. Will also initiate thiamine 150mg IM daily x 3 days due to concern for possible Wernicke's. Monitor mood, behavior and response to treatment.
--- NOTE | 2017-12-05 16:33 | XRay Report ---
Indication: cough, fever PROCEDURE: XR chest 1V: Encounter: Initial Comparison: None FINDINGS: The lungs are clear. There is no abnormal airspace opacity, pleural effusion or pneumothorax identified. The heart size, pulmonary vasculature and mediastinum are within normal limits. No significant skeletal abnormality is seen. IMPRESSION: No acute cardiopulmonary abnormality. .
[2017-12-05] MEDS ORDERED: QUETIAPINE 200 MG TABLET PO SCH (21:00)
[2017-12-06] MEDS: OMEPRAZOLE 20 MG CAPSULE PO SCH (06:31)
[2017-12-06] MEDS: CETIRIZINE 10 MG TABLET PO SCH (10:32)
[2017-12-06] MEDS: FLUTICASONE NASAL SPRAY 50mcg EA NOSTRIL SCH (10:33)
[2017-12-06] MEDS: QUETIAPINE 25 MG TABLET PO SCH ×3 (10:33→20:20)
[2017-12-06] MEDS: CYANOCOBALAMIN (B-12) 500mcg TABLET PO SCH (10:33)
[2017-12-06] MEDS: SERTRALINE 100 MG TABLET PO SCH (10:33)
--- NOTE | 2017-12-06 11:35 | Neuropsych Progress Note ---
Jose Miguel Subjective Date: 12/06/17 - Sujective/Severity of Illness Medications: Acetaminophen (Tylenol) 650 mg PO Q4H PRN PRN Reason: Cough Al Hydroxide/Mg Hydroxide (Maalox Plus) 15 ml PO Q4H PRN PRN Reason: Indigestion Cetirizine HCl (Zyrtec) 10 mg PO DAILY [facility] Last Admin: 12/06/17 10:32 Dose: Not Given Cyanocobalamin (Vit. B-12) 2,500 mcg PO DAILY [facility] Last Admin: 12/06/17 10:33 Dose: Not Given Fluticasone Propionate (Flonase) 1 spray EA NOSTRIL DAILY [facility] Last Admin: 12/06/17 10:33 Dose: Not Given Guaifenesin (Robitussin Liq) 100 mg PO Q4H PRN PRN Reason: Cough Haloperidol (Haldol) 0.5 mg PO Q6H PRN PRN Reason: Extreme agitation Haloperidol Lactate (Haldol) 0.5 mg IM Q6H PRN PRN Reason: Extreme agitation Lorazepam (Ativan) 0.5 mg PO Q6H PRN PRN Reason: Extreme agitation Lorazepam (Ativan Inj) 0.5 mg IM Q6H PRN PRN Reason: Extreme agitation Last Admin: 12/05/17 10:21 Dose: 0.5 mg Magnesium Hydroxide (Mom) 30 ml PO DAILY PRN PRN Reason: Constipation Omeprazole (Prilosec) 20 mg PO ACB [facility] Last Admin: 12/06/17 06:31 Dose: 20 mg Quetiapine Fumarate (Seroquel) 12.5 mg PO TID [facility] Last Admin: 12/06/17 10:33 Dose: Not Given Sertraline HCl (Zoloft) 100 mg PO DAILY [facility] Last Admin: 12/06/17 10:33 Dose: Not Given Thiamine HCl (Vitamin B-1) 250 mg IM DAILY [facility] Stop: 12/07/17 09:01 Subjective: Pt seen and chart examined. Nursing reports pt did not sleep well. Has been anxious and refusing meds. On face to face the pt is guarded and confused. She becomes agitated and only answers yes or non. She is only oriented to self. She eventually asked this promotion writer to leave and states she will not answer any more questions. Does not appear to be in any distress Start Time: 10:00 Stop Time: 10:15 Mental Status Exam Vitals: Last Vital Signs Temp 98.8 F 12/05/17 23:30 Pulse 87 12/05/17 23:30 Resp 18 12/05/17 23:30 BP 136/79 12/05/17 23:30 Pulse Ox 94 12/05/17 23:30 Height: 1.63 m Weight: 56.6 kg - Mental Status Exam Muscle Strength/Tone: Weak (patient does not allow me to touch her but gait appears shuffled, unsteady) Dressing: Casual Grooming: Disheveled Attitude: Uncooperative, Argumentative Motor Activity: Restless Eye Contact: Poor Speech: Slowed Volume: Normal Rhythm: Appropriate Rhythm Orientation: Disoriented to time, Disoriented to place, Disoriented to situation , Oriented to person Mood: Other (Does not answer but has irritable, labile affect) Rate of Thoughts: Delayed Thought Organization: Disorganized, Confused Associations: Illogical Abstract Reasoning: Impaired, concrete Thought Content: Paranoia Perception/Psychotic: Psychotic Current Hallucinations: Visual (frequent) Language: Naming Impaired Fund of Knowledge: Poor fund of knowledge Memory: Poor-immediate, Poor-recent, Poor-remote Suicidal Ideation: Other (Does not answer) Homicidal Ideation: Other (Does not answer) Insight: Impaired Judgement: Impaired Impulse Control: Poor - Laboratory Result Diagrams: 12/04/17 14:33 12/04/17 14:33 Assessment and Plan (1) Psychosis Problem details: R/O Alcohol withdrawal delirium R/O Wernicke's encephalopathy R/O Delirium secondary to unknown etiology R/O Lewy body dementia Current visit: Yes Status: Acute (2) Major neurocognitive disorder Problem details: Other medical conditions: Anemia, unspecified, present on admission. Hypertension. Hyperlipidemia. COPD. Sleep apnea. Allergic rhinitis. GERD. Osteoarthritis. Essential and intentional tremors. Chronic kidney disease, stage III. Current visit: Yes Status: Acute (3) History of Parkinson's disease Current visit: Yes Status: Acute (4) Alcohol use disorder Current visit: Yes Status: Acute Hospital Course Summary Disclaimer: The visit summary below is not to be considered part of the above Progress Note. Hospital Course: Plan - 12/06/17: Agree with admission to [facility]. Hospitalist service consulted for medical management. Initial labs relatively unremarkable - Hgb 11.5. Monitor periodically throughout admission. Fever - 100.3, with cough and congestion noted - will try and obtain CXR. Patient currently refusing medications, CXR and eating. Will discuss with family their wishes with regard to possible treatment measures for the patient (ie. IVs, PEG placement, labs, etc). Will continue home guaifenesin for cough. Monitor respiratory function closely. Provide safe and supportive environment. Upon discharge, patient's care will be returned to her PCP, Dr. Jackson. Patient requests to be a DNR - documentation on chart. 12/06/2017 Psych- Pt is irritable and appears anxious. Will not increase Seroquel at this time as she has been refusing
[2017-12-06] MEDS: ACETAMINOPHEN 325 MG TABLET PO PRN (14:36)
[2017-12-06] MEDS: LORazepam INTENSOL 1mg/0.5ml ORAL LIQUID PO PRN (14:38)
[2017-12-06] MEDS: THIAMINE 200mg/2ml INJECTION IM SCH (17:37)
[2017-12-07] MEDS: CETIRIZINE 10 MG TABLET PO SCH (08:44)
[2017-12-07] MEDS: FLUTICASONE NASAL SPRAY 50mcg EA NOSTRIL SCH (08:44)
[2017-12-07] MEDS: OMEPRAZOLE 20 MG CAPSULE PO SCH (08:44)
[2017-12-07] MEDS: SERTRALINE 100 MG TABLET PO SCH (08:46)
[2017-12-07] MEDS: QUETIAPINE 25 MG TABLET PO SCH ×5 (08:46→21:00)
[2017-12-07] MEDS: ACETAMINOPHEN 325 MG TABLET PO PRN ×2 (08:56→13:00)
[2017-12-07] MEDS: THIAMINE 200mg/2ml INJECTION IM SCH (09:40)
--- NOTE | 2017-12-07 11:00 | Neuropsych Progress Note ---
Jose Miguel Subjective Date: 12/07/17 - Sujective/Severity of Illness Medications: Acetaminophen (Tylenol) 650 mg PO Q4H PRN PRN Reason: Cough Al Hydroxide/Mg Hydroxide (Maalox Plus) 15 ml PO Q4H PRN PRN Reason: Indigestion Cetirizine HCl (Zyrtec) 10 mg PO DAILY [facility] Last Admin: 12/06/17 10:32 Dose: Not Given Cyanocobalamin (Vit. B-12) 1,000 mcg PO DAILY [facility] Fluticasone Propionate (Flonase) 1 spray EA NOSTRIL DAILY [facility] Last Admin: 12/06/17 10:33 Dose: Not Given Guaifenesin (Robitussin Liq) 100 mg PO Q4H PRN PRN Reason: Cough Haloperidol (Haldol) 0.5 mg PO Q6H PRN PRN Reason: Extreme agitation Haloperidol Lactate (Haldol) 0.5 mg IM Q6H PRN PRN Reason: Extreme agitation Lorazepam (Ativan) 0.5 mg PO Q6H PRN PRN Reason: Extreme agitation Lorazepam (Ativan Inj) 0.5 mg IM Q6H PRN PRN Reason: Extreme agitation Last Admin: 12/07/17 09:41 Dose: 0.5 mg Lorazepam (Ativan Intensol) 0.5 mg PO Q6H PRN Last Admin: 12/06/17 14:38 Dose: 0.5 mg Magnesium Hydroxide (Mom) 30 ml PO DAILY PRN PRN Reason: Constipation Omeprazole (Prilosec) 20 mg PO ACB [facility] Last Admin: 12/06/17 06:31 Dose: 20 mg Quetiapine Fumarate (Seroquel) 12.5 mg PO TID [facility] Last Admin: 12/06/17 20:20 Dose: Not Given Sertraline HCl (Zoloft) 100 mg PO DAILY [facility] Last Admin: 12/06/17 10:33 Dose: Not Given Thiamine HCl (Vitamin B-1) 250 mg IM DAILY [facility] Stop: 12/08/17 09:01 Subjective: Pt seen and chart examined. Nursing reports pt remains anxious and can be combative at times with [facility]. Staff reports pt asked for a phylicia for breakfast this AM. Pt has poor PO intake. Refusing PO meds. On face to face the pt is resting in a chair. She is irritable and confused and does not want to talk. She does not appear in any distress. Start Time: 10:00 Stop Time: 10:15 Mental Status Exam Vitals: Last Vital Signs Temp 98.3 F 12/07/17 08:33 Pulse 87 12/07/17 08:33 Resp 87 H 12/07/17 08:33 BP 105/55 12/07/17 08:33 Pulse Ox 95 12/07/17 08:33 Height: 1.63 m Weight: 56.6 kg - Mental Status Exam Muscle Strength/Tone: Weak (patient does not allow me to touch her but gait appears shuffled, unsteady) Dressing: Casual Grooming: Disheveled Attitude: Uncooperative, Argumentative Motor Activity: Restless Eye Contact: Poor Speech: Slowed Volume: Normal Rhythm: Appropriate Rhythm Orientation: Disoriented to time, Disoriented to place, Disoriented to situation , Oriented to person Mood: Other (Does not answer but has irritable, labile affect) Rate of Thoughts: Delayed Thought Organization: Disorganized, Confused Associations: Illogical Abstract Reasoning: Impaired, concrete Thought Content: Paranoia Perception/Psychotic: Psychotic Current Hallucinations: Visual (frequent) Language: Naming Impaired Fund of Knowledge: Poor fund of knowledge Memory: Poor-immediate, Poor-recent, Poor-remote Suicidal Ideation: Other (Does not answer) Homicidal Ideation: Other (Does not answer) Insight: Impaired Judgement: Impaired Impulse Control: Poor - Laboratory Result Diagrams: 12/04/17 14:33 12/04/17 14:33 Assessment and Plan (1) Psychosis Problem details: R/O Alcohol withdrawal delirium R/O Wernicke's encephalopathy R/O Delirium secondary to unknown etiology R/O Lewy body dementia Current visit: Yes Status: Acute (2) Major neurocognitive disorder Problem details: Other medical conditions: Anemia, unspecified, present on admission. Hypertension. Hyperlipidemia. COPD. Sleep apnea. Allergic rhinitis. GERD. Osteoarthritis. Essential and intentional tremors. Chronic kidney disease, stage III. Current visit: Yes Status: Acute (3) History of Parkinson's disease Current visit: Yes Status: Acute (4) Alcohol use disorder Current visit: Yes Status: Acute Hospital Course Summary Disclaimer: The visit summary below is not to be considered part of the above Progress Note. Hospital Course: Plan - 12/06/17: Agree with admission to [facility]. Hospitalist service consulted for medical management. Initial labs relatively unremarkable - Hgb 11.5. Monitor periodically throughout admission. Fever - 100.3, with cough and congestion noted - will try and obtain CXR. Patient currently refusing medications, CXR and eating. Will discuss with family their wishes with regard to possible treatment measures for the patient (ie. IVs, PEG placement, labs, etc). Will continue home guaifenesin for cough. Monitor respiratory function closely. Provide safe and supportive environment. Upon discharge, patient's care will be returned to her PCP, Dr. Jackson. Patient requests to be a DNR - documentation on chart. 12/06/2017 Psych- Pt is irritable and appears anxious. Will not increase Seroquel at this time as she has been refusing 12/07/2017 Psych- Poor PO intake and refusing meds. Hesitant to use IM antipsychotics for fear of worsening Parkinsons symptoms. Will discuss with Dr. Silvestre. Possibly consider scheduled Ativan
[2017-12-08] MEDS: CETIRIZINE 10 MG TABLET PO SCH ×3 (03:42→14:10)
[2017-12-08] MEDS: SERTRALINE 100 MG TABLET PO SCH ×3 (03:42→14:11)
[2017-12-08] MEDS: FLUTICASONE NASAL SPRAY 50mcg EA NOSTRIL SCH ×3 (03:42→14:10)
[2017-12-08] MEDS: OMEPRAZOLE 20 MG CAPSULE PO SCH ×3 (03:42→14:10)
[2017-12-08] MEDS: THIAMINE 200mg/2ml INJECTION IM SCH (03:42)
[2017-12-08] MEDS ORDERED: THIAMINE 200mg/2ml INJECTION IM SCH (09:00)
[2017-12-08] MEDS: CYANOCOBALAMIN (B-12) 500mcg TABLET PO SCH ×2 (11:20→14:10)
[2017-12-08] MEDS: QUETIAPINE 25 MG TABLET PO SCH ×3 (11:20→14:54)
[2017-12-08] MEDS: ACETAMINOPHEN 325 MG TABLET PO PRN (14:52)
--- NOTE | 2017-12-08 15:44 | Neuropsych Progress Note ---
[facility] Subjective Date: 12/08/17 - Sujective/Severity of Illness Medications: Acetaminophen (Tylenol) 650 mg PO Q4H PRN PRN Reason: Cough Last Admin: 12/07/17 13:00 Dose: 650 mg Al Hydroxide/Mg Hydroxide (Maalox Plus) 15 ml PO Q4H PRN PRN Reason: Indigestion Cetirizine HCl (Zyrtec) 10 mg PO DAILY [facility] Last Admin: 12/08/17 14:10 Dose: Not Given Cyanocobalamin (Vit. B-12) 1,000 mcg PO DAILY [facility] Last Admin: 12/08/17 14:10 Dose: Not Given Fluticasone Propionate (Flonase) 1 spray EA NOSTRIL DAILY [facility] Last Admin: 12/08/17 14:10 Dose: Not Given Guaifenesin (Robitussin Liq) 100 mg PO Q4H PRN PRN Reason: Cough Haloperidol (Haldol) 0.5 mg PO Q6H PRN PRN Reason: Extreme agitation Haloperidol Lactate (Haldol) 0.5 mg IM Q6H PRN PRN Reason: Extreme agitation Lorazepam (Ativan) 0.5 mg PO Q6H PRN PRN Reason: Extreme agitation Lorazepam (Ativan Inj) 0.5 mg IM Q6H PRN PRN Reason: Extreme agitation Last Admin: 12/07/17 09:41 Dose: 0.5 mg Lorazepam (Ativan Intensol) 0.5 mg PO Q6H PRN Last Admin: 12/06/17 14:38 Dose: 0.5 mg Magnesium Hydroxide (Mom) 30 ml PO DAILY PRN PRN Reason: Constipation Omeprazole (Prilosec) 20 mg PO ACB [facility] Last Admin: 12/08/17 14:10 Dose: Not Given Quetiapine Fumarate (Seroquel) 12.5 mg PO TID [facility] Last Admin: 12/08/17 14:54 Dose: 12.5 mg Sertraline HCl (Zoloft) 100 mg PO DAILY [facility] Last Admin: 12/08/17 14:11 Dose: Not Given Subjective: Patient seen and chart reviewed. Case discussed with treatment team. On interview, patient walks back from the restroom with assistance and then lies in bed. She does not respond to my questions and appears very confused, mumbling and not making much sense. Nursing staff report patient has become weaker since Friday, and has minimal PO intake (food/water). She has refused the majority of her PO medications. Patient slept 5+ hours overnight. VSS. Psychotropic PRNs required in the past 24 hours: Ativan 1mg IM at 0941 yesterday AM. I spoke at length with patient's DPOA Devang re: differential diagnosis ( Wernicke's vs. delirium vs. LBD or some combination thereof). I strongly expressed that nutrition was our primary focus at this point if we wanted to see improvement and if they did not want to force nutrition, comfort care would be reasonable. He plans to discuss with family and will let me know whether he would like us to start parenteral nutrition. Start Time: 13:00 Stop Time: 13:20 Mental Status Exam Vitals: Last Vital Signs Temp 98.0 F 12/08/17 11:19 Pulse 84 12/08/17 11:19 Resp 20 12/08/17 11:19 BP 105/81 12/08/17 11:19 Pulse Ox 90 12/08/17 11:19 Height: 1.63 m Weight: 56.6 kg - Mental Status Exam Muscle Strength/Tone: Weak (patient does not allow me to touch her but gait appears shuffled, unsteady) Dressing: Casual Grooming: Disheveled Attitude: Uncooperative, Argumentative Motor Activity: Restless Eye Contact: Poor Speech: Slowed Volume: Normal Rhythm: Appropriate Rhythm Orientation: Disoriented to time, Disoriented to place, Disoriented to situation , Oriented to person Mood: Other (Does not answer, extremely confused) Rate of Thoughts: Delayed Thought Organization: Disorganized, Confused Associations: Illogical Abstract Reasoning: Impaired, concrete Thought Content: Other (Poverty of thought) Perception/Psychotic: Psychotic Current Hallucinations: Visual (frequent) Language: Naming Impaired Fund of Knowledge: Poor fund of knowledge Memory: Poor-immediate, Poor-recent, Poor-remote Suicidal Ideation: Other (Does not answer) Homicidal Ideation: Other (Does not answer) Insight: Impaired Judgement: Impaired Impulse Control: Poor - Laboratory Result Diagrams: 12/04/17 14:33 12/04/17 14:33 Assessment and Plan (1) Psychosis Problem details: R/O Alcohol withdrawal delirium R/O Wernicke's encephalopathy R/O Delirium secondary to unknown etiology R/O Lewy body dementia Current visit: Yes Status: Acute (2) History of Parkinson's disease Current visit: Yes Status: Acute (3) Alcohol use disorder Current visit: Yes Status: Acute (4) Major neurocognitive disorder Problem details: Other medical conditions: Anemia, unspecified, present on admission. Hypertension. Hyperlipidemia. COPD. Sleep apnea. Allergic rhinitis. GERD. Osteoarthritis. Essential and intentional tremors. Chronic kidney disease, stage III. Current visit: Yes Status: Acute Will hold Seroquel; discussed care with MARYANA Siddiqi as well as brother Daljit. Will discuss parenteral nutrition with hospitalist. Hospital Course Summary Disclaimer: The visit summary below is not to be considered part of the above Progress Note. Hospital Course: Plan - 12/06/17: Agree with admission to [facility]. Hospitalist service consulted for medical management. Initial labs relatively unremarkable - Hgb 11.5. Monitor periodically throughout admission. Fever - 100.3, with cough and congestion noted - will try and obtain CXR. Patient currently refusing medications, CXR and eating. Will discuss with family their wishes with regard to possible treatment measures for the patient (ie. IVs, PEG placement, labs, etc). Will continue home guaifenesin for cough. Monitor respiratory function closely. Provide safe and supportive environment. Upon discharge, patient's care will be returned to her PCP, Dr. Jackson. Patient requests to be a DNR - documentation on chart. 12/06/2017 Psych- Pt is irritable and appears anxious. Will not increase Seroquel at this time as she has been refusing 12/07/2017 Psych- Poor PO intake and refusing meds. Hesitant to use IM antipsychotics for fear of worsening Parkinsons symptoms. Will discuss with Dr. Silvestre. Possibly consider scheduled Ativan. 12/08/2017 Psych: Will hold Seroquel; discussed care with MARYANA Siddiqi as well as brother Daljit. Will discuss parenteral nutrition with hospitalist.
[2017-12-08] MEDS ORDERED: ACETAMINOPHEN 160mg/5ml ORAL LIQUID PO PRN (16:06)
[2017-12-08] MEDS ORDERED: MORPHINE SULFATE 2mg INJ IM PRN (16:08)
[2017-12-08] MEDS ORDERED: ACETAMINOPHEN 650 MG/20.3 ML SOLUTION PO PRN (16:45)
[2017-12-08] MEDS ORDERED: [UNRECOGNIZED DRUG - MIXTURE] IV SCH (17:00)
--- NOTE | 2017-12-08 18:55 | Progress Note ---
Progress Note: Dr. Silvestre reports pt has not been eating and drinking over the weekend. Is having sxs of Wernicke's vs delirium vs LBD and/or alcohol w/drawal. She has discussed with family who wants to go ahead parenteral nutrition. Discussed with Dr. Walters and pharmacy. At this point, will start procalamine IV for protein and electrolyte support at 50ml's per hr. Increase to 75ml's per hr in the am if pt is tolerating. Check labs in am. Can consider adding fat emulsion tomorrow.
[2017-12-08] MEDS: [UNRECOGNIZED DRUG - MIXTURE] IV SCH (20:15)
[2017-12-09] MEDS: MORPHINE SULFATE 10mg/0.5ml ORAL LIQ SL PRN ×4 (01:15→23:37)
[2017-12-09] MEDS: FLUTICASONE NASAL SPRAY 50mcg EA NOSTRIL SCH (13:59)
[2017-12-09] MEDS: OMEPRAZOLE 20 MG CAPSULE PO SCH (13:59)
[2017-12-09] MEDS: CYANOCOBALAMIN (B-12) 500mcg TABLET PO SCH (13:59)
[2017-12-09] MEDS: CETIRIZINE 10 MG TABLET PO SCH (13:59)
[2017-12-09] MEDS: SERTRALINE 100 MG TABLET PO SCH (13:59)
[2017-12-09] MEDS: [UNRECOGNIZED DRUG - MIXTURE] IV SCH (14:08)
--- NOTE | 2017-12-09 15:12 | Neuropsych Progress Note ---
Jose Miguel Subjective Date: 12/09/17 - Sujective/Severity of Illness Medications: Acetaminophen (Tylenol) 650 mg PO Q4H PRN PRN Reason: Cough Last Admin: 12/07/17 13:00 Dose: 650 mg Acetaminophen (Tylenol) 650 mg PO Q5H PRN PRN Reason: Pain Al Hydroxide/Mg Hydroxide (Maalox Plus) 15 ml PO Q4H PRN PRN Reason: Indigestion Cetirizine HCl (Zyrtec) 10 mg PO DAILY [facility] Last Admin: 12/09/17 13:59 Dose: Not Given Cyanocobalamin (Vit. B-12) 1,000 mcg PO DAILY [facility] Last Admin: 12/09/17 13:59 Dose: Not Given Fluticasone Propionate (Flonase) 1 spray EA NOSTRIL DAILY [facility] Last Admin: 12/09/17 13:59 Dose: Not Given Guaifenesin (Robitussin Liq) 100 mg PO Q4H PRN PRN Reason: Cough Haloperidol (Haldol) 0.5 mg PO Q6H PRN PRN Reason: Extreme agitation Haloperidol Lactate (Haldol) 0.5 mg IM Q6H PRN PRN Reason: Extreme agitation Amino Acids/Glycerin/Electrolytes (Procalamine Iv) 1,000 mls @ 50 mls/hr IV .Q20H [facility] Last Admin: 12/09/17 14:08 Dose: 75 mls/hr Lorazepam (Ativan) 0.5 mg PO Q6H PRN PRN Reason: Extreme agitation Lorazepam (Ativan Inj) 0.5 mg IM Q6H PRN PRN Reason: Extreme agitation Last Admin: 12/07/17 09:41 Dose: 0.5 mg Lorazepam (Ativan Intensol) 0.5 mg PO Q6H PRN Last Admin: 12/06/17 14:38 Dose: 0.5 mg Magnesium Hydroxide (Mom) 30 ml PO DAILY PRN PRN Reason: Constipation Morphine Sulfate (Morphine Sulfate Inj) 2 mg IM Q3-4HR PRN PRN Reason: Pain Last Admin: 12/08/17 18:45 Dose: 2 mg Morphine Sulfate (Roxanol Oral Liq) 5 mg SL Q2H PRN PRN Reason: Pain Last Admin: 12/09/17 13:37 Dose: 5 mg Omeprazole (Prilosec) 20 mg PO ACB [facility] Last Admin: 12/09/17 13:59 Dose: Not Given Sertraline HCl (Zoloft) 100 mg PO DAILY [facility] Last Admin: 12/09/17 13:59 Dose: Not Given Subjective: Patient seen and chart reviewed. Case discussed with treatment team. Family made the choice yesterday to proceed with IV nutrition using restraints if necessary. Psych meds other than antidepressant have been held since yesterday and she was refusing many of them prior. On interview, patient is lying in bed and has IV in place, 1 arm in restraint to avoid pulling it out. Patient mumbles/whispers and speaks minimally in response to questions. She says she feels "better" but is not able to describe how. Nursing staff report patient has been paranoid at times and has spit meds out because she is concerned they are poison. PO intake continues to be minimal. No psychotropic PRNs required in past 24 hours. Start Time: 15:00 Stop Time: 15:20 Mental Status Exam Vitals: Last Vital Signs Temp 98.4 F 12/09/17 08:00 Pulse 87 12/09/17 08:00 Resp 18 12/09/17 08:00 BP 123/64 12/09/17 08:00 Pulse Ox 93 12/09/17 08:00 Height: 1.63 m Weight: 56.6 kg - Mental Status Exam Muscle Strength/Tone: Weak (extremely weak) Dressing: Casual Grooming: Disheveled Attitude: Uncooperative Motor Activity: Retardation, Restless Eye Contact: Poor Speech: Slowed Volume: Soft Rhythm: Mumbled Orientation: Disoriented to time, Disoriented to place, Disoriented to situation , Oriented to person Mood: Other ("better", patient is stuporous and confused during interview) Rate of Thoughts: Delayed Thought Organization: Disorganized, Confused Associations: Illogical Abstract Reasoning: Impaired, concrete Thought Content: Other (Poverty of thought) Perception/Psychotic: Psychotic Current Hallucinations: Visual (frequent) Language: Naming Impaired Fund of Knowledge: Poor fund of knowledge Memory: Poor-immediate, Poor-recent, Poor-remote Suicidal Ideation: Other (has made statements about wanting to ) Homicidal Ideation: None Insight: Impaired Judgement: Impaired Impulse Control: Poor - Laboratory Result Diagrams: 12/09/17 06:29 12/09/17 06:29 Laboratory Results - last 24 hr 04/03/18 12/09/17 06:29 06:29 WBC 18.9 H RBC 4.10 Hgb 12.8 Hct 38.4 MCV 93.7 MCH 31.2 MCHC 33.3 RDW Std Deviation 41.1 Plt Count 301 D MPV 9.5 Immature Gran % (Auto) Not performed Neut % (Auto) Not performed Lymph % (Auto) Not performed Sibley % (Auto) Not performed Eos % (Auto) Not performed Baso % (Auto) Not performed Neut # (Auto) Not performed Lymph # (Auto) Not performed [place]y # (Auto) Not performed Eos # (Auto) Not performed Baso # (Auto) Not performed Abs Immat Gran (auto) Not performed Neutrophils % (Manual) 89.0 H Lymphocytes % (Manual) 6.0 L Monocytes % (Manual) 5.0 Neutrophils # (Manual) 16.8 H Lymphocytes # (Manual) 1.1 Monocytes # (Manual) 0.9 H RBC Morph Comment Normal Turbidity < 20 Sodium 135 Potassium 3.6 Chloride 103 Carbon Dioxide 19 L Anion Gap 13 BUN 27.0 H Creatinine 0.8 GFR Calculation 70 BUN/Creatinine Ratio 34 H Glucose 146 H Calculated Osmolality 268 Calcium 9.0 Total Bilirubin 1.60 H Icterus Index < 2 AST 33 ALT 27 Alkaline Phosphatase 153 H Total Protein 7.3 Albumin 3.6 Globulin 3.7 H Albumin/Globulin Ratio 1.0 L Specimen Hemolysis 39 H Assessment and Plan (1) Psychosis Problem details: R/O Alcohol withdrawal delirium R/O Wernicke's encephalopathy R/O Delirium secondary to unknown etiology R/O Lewy body dementia Current visit: Yes Status: Acute (2) History of Parkinson's disease Current visit: Yes Status: Acute (3) Alcohol use disorder Current visit: Yes Status: Acute (4) Major neurocognitive disorder Problem details: Other medical conditions: Anemia, unspecified, present on admission. Hypertension. Hyperlipidemia. COPD. Sleep apnea. Allergic rhinitis. GERD. Osteoarthritis. Essential and intentional tremors. Chronic kidney disease, stage III. Current visit: Yes Status: Acute Continue IV nutrition and monitor response. May consider lorazepam challenge tomorrow due to reported paranoia. Hospital Course Summary Disclaimer: The visit summary below is not to be considered part of the above Progress Note. Hospital Course: Plan - 12/06/17: Agree with admission to [facility]. Hospitalist service consulted for medical management. Initial labs relatively unremarkable - Hgb 11.5. Monitor periodically throughout admission. Fever - 100.3, with cough and congestion noted - will try and obtain CXR. Patient currently refusing medications, CXR and eating. Will discuss with family their wishes with regard to possible treatment measures for the patient (ie. IVs, PEG placement, labs, etc). Will continue home guaifenesin for cough. Monitor respiratory function closely. Provide safe and supportive environment. Upon discharge, patient's care will be returned to her PCP, Dr. Jackson. Patient requests to be a DNR - documentation on chart. 12/06/2017 Psych- Pt is irritable and appears anxious. Will not increase Seroquel at this time as she has been refusing 12/07/2017 Psych- Poor PO intake and refusing meds. Hesitant to use IM antipsychotics for fear of worsening Parkinsons symptoms. Will discuss with Dr. Silvestre. Possibly consider scheduled Ativan. 12/08/2017 Psych: Will hold Seroquel; discussed care with MARYANA Siddiqi as well as brother Daljit. Will discuss parenteral nutrition with hospitalist. 12/09/17 Psych: Family made decision on 12/08 to proceed with parenteral nutrition. Psych meds other than Zoloft has been held as patient was mostly refusing anyway. Today, continue IV nutrition and monitor response. May consider lorazepam challenge tomorrow due to reported paranoia.
--- NOTE | 2017-12-09 19:58 | Progress Note ---
- Date 12/09/17 Subjective: Patient seen sleeping in her room. She does not arouse to name or touch. Entire history taken from nursing staff. They report pt has mostly been in bed sleeping the past 2 days. Has taken very little by mouth. One bite of jello over the past 24 hrs and approx 1 oz of water. She has been up once today to void and had 1 incontinent void. She is mostly confused but has hollered out " I need to pee," and has said "I just want to ." When staff turns her she grimaces in pain. She is requiring 2 people to assist her to the bathroom where several days ago she was walking the halls by herself. Objective Vital signs: Temperature 97.6 F 12/09/17 19:27 Pulse Rate 103 H 12/09/17 19:27 Respiratory Rate 16 12/09/17 19:27 Blood Pressure 140/89 H 12/09/17 19:27 Pulse Oximetry 92 12/09/17 19:27 Height/Weight/BMI: Height 1.63 m Weight 56.6 kg Body Mass Index 21.4 - Constitutional Present: no acute distress, well developed, thin - Routine HEENT Exam Head: Present: normocephalic, atraumatic - Routine Respiratory Exam Present: CTA bilaterally (only auscultated anteriorly). Absent: wheezes - Routine Cardiovascular Exam Present: RRR, no murmur - Routine Abdominal Exam Present: soft, non distended, non tender - Routine Extremities Exam Present: no edema, normal capillary refill - Routine Skin Exam Present: dry, warm - Routine Neurological Exam Absent: alert (sleeps during visit) has rigors periodically during exam - Routine Lymphatic Exam Lymphatic: Absent: adenopathy - Routine Psychiatric Exam Present: unable to assess Results - Labs CBC & Chem 7: 12/09/17 06:29 12/09/17 06:29 Labs: strep viridans Microbiology Results: Microbiology 12/07/17 08:34 Not Provided Urine Culture - Final Streptococcus viridans group Assessment and Plan (1) Psychosis Problem details: R/O Alcohol withdrawal delirium R/O Wernicke's encephalopathy R/O Delirium secondary to unknown etiology R/O Lewy body dementia Current visit: Yes Status: Acute (2) Dementia with behavioral disturbance Current visit: Yes Status: Acute Assessment and Plan: Assessment: Acute psychosis, present on admission. Leukocytosis - not POA Strep viridans on urine culture - likely asymptomatic bacteria Hallucinations, visual and auditory, present on admission. Dementia with behavioral disturbance, present on admission. Anemia, unspecified, present on admission. Hypertension. Hyperlipidemia. Parkinson's disease. COPD. Sleep apnea. Allergic rhinitis. GERD. Osteoarthritis. Essential and intentional tremors. Depression. Anxiety. History of alcohol abuse. Chronic kidney disease, stage III. Plan Spent 30 minutes on the phone with pt's DPOA-H (nephew Devang Farrar ) in discussion of current condition and prognosis. He plans to talk with family and is considering Hospice consult. He, and hopefully pt's brother ( coming from [place]), will be visiting pt tomorrow. We reviewed the elevated WBC and urine culture findings and he declines further w-u or tx at this time. We discussed the IV procalamine. He would like to DC this if pt is bothered by it. As they have had to keep her arm restrained to prevent her pulling out the IV, will DC heplock, restraints and procalamine. Resuscitation Status: Do Not Resuscitate - Physician Narrative Physician: Fany Walters MD Narrative: Date: 12/09/17 Time: 2119 I have independently evaluated and examined this patient. I reviewed the chart, the patient's history, and the POURER BUGGY LADLE/PA's documented findings as above. We discussed and formulated the assessment and plan as above with additions as below: Mrs. Farrar was sleeping peacefully when seen this evening; she was not awaken to avoid triggering anxiety or agitation. Respirations were nonlabored, occasional myoclonic jerking was present but no rest tremor, cardiac rhythm regular. Laboratory data reviewed; family plans/interventions been reviewed with Nataly BASILIO over the past 2 days. Will discuss further with family when present at bedside tomorrow or the following day. Hospital Course Summary Disclaimer: The visit summary below is not to be considered part of the above Progress Note. Hospital Course: Plan - 12/06/17: Agree with admission to [facility] unit. Hospitalist service consulted for medical management. Initial labs relatively unremarkable - Hgb 11.5. Monitor periodically throughout admission. Fever - 100.3, with cough and congestion noted - will try and obtain CXR. Patient currently refusing medications, CXR and eating. Will discuss with family their wishes with regard to possible treatment measures for the patient (ie. IVs, PEG placement, labs, etc). Will continue home guaifenesin for cough. Monitor respiratory function closely. Provide safe and supportive environment. Upon discharge, patient's care will be returned to her PCP, Dr. Jackson. Patient requests to be a DNR - documentation on chart. 12/06/2017 Psych- Pt is irritable and appears anxious. Will not increase Seroquel at this time as she has been refusing 12/07/2017 Psych- Poor PO intake and refusing meds. Hesitant to use IM antipsychotics for fear of worsening Parkinsons symptoms. Will discuss with Dr. Silvestre. Possibly consider scheduled Ativan. 12/08/2017 Psych: Will hold Seroquel; discussed care with DPOA Devang as well as brother Daljit. Will discuss parenteral nutrition with hospitalist. 12/08/17 Dr. Silvestre reports pt has not been eating and drinking over the weekend. Is having sxs of Wernicke's vs delirium vs LBD and/or alcohol w/drawal. She has discussed with family who wants to go ahead parenteral nutrition. Discussed with Dr. Walters and pharmacy. At this point, will start procalamine IV for protein and electrolyte support at 50ml's per hr. Increase to 75ml's per hr in the am if pt is tolerating. Check labs in am. Can consider adding fat emulsion tomorrow. 12/09/17 Spent 30 minutes on the phone with pt's DPOA-H (nephjina Siddiqi Jefferson ) in discussion of current condition and prognosis. He plans to talk with family and is considering Hospice consult. He, and hopefully pt's brother ( coming from [place]), will be visiting pt tomorrow. We reviewed the elevated WBC and urine culture findings and he declines further w-u or tx at this time. We discussed the IV procalamine. He would like to DC this if pt is bothered by it. As they have had to keep her arm restrained to prevent her pulling out the IV, will DC heplock, restraints and procalamine.
[2017-12-10] MEDS: OMEPRAZOLE 20 MG CAPSULE PO SCH (07:04)
[2017-12-10] MEDS: CYANOCOBALAMIN (B-12) 500mcg TABLET PO SCH (09:21)
[2017-12-10] MEDS: FLUTICASONE NASAL SPRAY 50mcg EA NOSTRIL SCH (09:21)
[2017-12-10] MEDS: SERTRALINE 100 MG TABLET PO SCH (09:22)
[2017-12-10] MEDS: MORPHINE SULFATE 10mg/0.5ml ORAL LIQ SL PRN ×2 (09:24→15:15)
[2017-12-10 10:06] VITALS: BP 133/68; PULSE 89; RESP 20; TEMP 97.5; O2SAT 97
--- NOTE | 2017-12-10 12:43 | Extended Care Facility Orders ---
Admission Orders Admit to:: ICF (with Hospice support) Allergies/Adverse Reactions: Allergies arformoterol [From Brovana] Allergy (Unknown, Verified 12/04/17 14:25) venlafaxine [From Effexor] Allergy (Unknown, Verified 12/04/17 14:25) Admitting Diagnosis: Psychosis Admitting Physician: Kezia Silvestre MD Attending Physician: Kezia Silvestre MD Code Status: Do Not Resuscitate Anticiapted Length of Stay: 30 days or less Rehab Potential: poor Rehab Prognosis: poor Diet: 12/07/17 Dinner Regular Diet [DIET] Diet Modifications: finger foods please May use Facility Protocol or Standing Orders: Yes May have flu vaccine: No Evaluations/Treatment: Psychiatric, as needed Jail Certification: I certify that SNF services are required to be given on an Inpatient basis because of the patients need for chcf care on a continuing basis for the condition(s) for which he/she received inpatient hospital services prior to his/her transfer to the SNF. SNF inpatient care is necessary for the following reasons Indication for Jail: Other - Additional Information In Event of Arrest: Do Not Start CPR Resident is Aware of Diagnosis: No (due to mental status) Referrals: Hospice, [facility] [Other] (No follow-up appts. scheduled, due to patient discharging with Hospice services. Mental Health needs will be met by the Wildlife Control Operator.)
--- NOTE | 2017-12-10 13:21 | Progress Note ---
- Date 12/10/17 Subjective: Patient is seen today lying in bed. She does not open her eyes, but when talked to, she attempts to talk but her voice is just a whisper and I cannot hear or understand what she is saying. Nursing staff reports that she continues to rest in bed. Family is reportedly coming today to visit. Objective Vital signs: Temperature 97.5 F 12/10/17 08:00 Pulse Rate 89 12/10/17 08:00 Respiratory Rate 20 12/10/17 08:00 Blood Pressure 133/68 12/10/17 08:00 Pulse Oximetry 97 12/10/17 08:00 Height/Weight/BMI: Height 1.63 m Weight 56.6 kg Body Mass Index 21.4 - Constitutional Present: no acute distress, well developed, thin - Routine HEENT Exam Head: Present: normocephalic, atraumatic - Routine Respiratory Exam Present: CTA bilaterally. Absent: wheezes - Routine Cardiovascular Exam Present: no murmur, tachycardia - Routine Abdominal Exam Present: soft, non distended, non tender - Routine Extremities Exam Present: no edema, normal capillary refill - Routine Skin Exam Present: dry, warm - Routine Neurological Exam Absent: alert, oriented X3 - Routine Lymphatic Exam Lymphatic: Absent: adenopathy - Routine Psychiatric Exam Present: unable to assess Results - Labs CBC & Chem 7: 12/09/17 06:29 12/09/17 06:29 Microbiology Results: Microbiology 12/07/17 08:34 Not Provided Urine Culture - Final Streptococcus viridans group Assessment and Plan (1) Psychosis Problem details: R/O Alcohol withdrawal delirium R/O Wernicke's encephalopathy R/O Delirium secondary to unknown etiology R/O Lewy body dementia Current visit: Yes Status: Acute (2) Dementia with behavioral disturbance Current visit: Yes Status: Acute Assessment and Plan: Assessment: Acute psychosis, present on admission. Leukocytosis - not POA Strep viridans on urine culture - likely asymptomatic bacteria Hallucinations, visual and auditory, present on admission. Dementia with behavioral disturbance, present on admission. Anemia, unspecified, present on admission. Hypertension. Hyperlipidemia. Parkinson's disease. COPD. Sleep apnea. Allergic rhinitis. GERD. Osteoarthritis. Essential and intentional tremors. Depression. Anxiety. History of alcohol abuse. Chronic kidney disease, stage III. Plan Nursing staff has informed me that family has made the decision to have patient return to [facility] in [place] and [facility] hospice will follow her. Plan is to discharge today. - Physician Narrative Narrative: Date: 12/10/17 Time: 1318 Hospital Course Summary Disclaimer: The visit summary below is not to be considered part of the above Progress Note. Hospital Course: Plan - 12/06/17: Agree with admission to [facility] unit. Hospitalist service consulted for medical management. Initial labs relatively unremarkable - Hgb 11.5. Monitor periodically throughout admission. Fever - 100.3, with cough and congestion noted - will try and obtain CXR. Patient currently refusing medications, CXR and eating. Will discuss with family their wishes with regard to possible treatment measures for the patient (ie. IVs, PEG placement, labs, etc). Will continue home guaifenesin for cough. Monitor respiratory function closely. Provide safe and supportive environment. Upon discharge, patient's care will be returned to her PCP, Dr. Jackson. Patient requests to be a DNR - documentation on chart. 12/06/2017 Psych- Pt is irritable and appears anxious. Will not increase Seroquel at this time as she has been refusing 12/07/2017 Psych- Poor PO intake and refusing meds. Hesitant to use IM antipsychotics for fear of worsening Parkinsons symptoms. Will discuss with Dr. Silvestre. Possibly consider scheduled Ativan. 12/08/2017 Psych: Will hold Seroquel; discussed care with DPBRISEYDA Siddiqi as well as brother Daljit. Will discuss parenteral nutrition with hospitalist. 12/09/17 Psych: Family made decision on 12/08 to proceed with parenteral nutrition. Psych meds other than Zoloft has been held as patient was mostly refusing anyway. Today, continue IV nutrition and monitor response. May consider lorazepam challenge tomorrow due to reported paranoia.
[2017-12-10] MEDS: LORazepam INTENSOL 1mg/0.5ml ORAL LIQUID PO PRN (15:15)
--- NOTE | 2017-12-24 09:30 | Neuropsychiatric Disch Summary ---
Discharge Information Date of admission: 12/04/17 16:20 Anticipated date of discharge: 12/10/17 Attending Physician: Kezia Silvestre MD Primary care physician: Carlos Jackson MD - Discharge Diagnosis (1) History of Parkinson's disease Status: Acute (2) Alcohol use disorder Status: Acute (3) Major neurocognitive disorder Status: Acute (1) Psychosis Problem details: R/O Alcohol withdrawal delirium R/O Wernicke's encephalopathy R/O Delirium secondary to unknown etiology R/O Lewy body dementia Current visit: Yes Status: Acute (2) History of Parkinson's disease Current visit: Yes Status: Acute (3) Alcohol use disorder Current visit: Yes Status: Acute (4) Major neurocognitive disorder Problem details: Other medical conditions: Anemia, unspecified, present on admission. Hypertension. Hyperlipidemia. COPD. Sleep apnea. Allergic rhinitis. GERD. Osteoarthritis. Essential and intentional tremors. Chronic kidney disease, stage III. Current visit: Yes Status: Acute - Laboratory Labs: 12/09/17 06:29 12/09/17 06:29 - Microbiology Microbiology 12/07/17 08:34 Not Provided Urine Culture - Final Streptococcus viridans group Date of Admission: 12/04/17 16:20 History of Present Illness: Patient is a 77-year-old female who was admitted to [facility] for psychiatric evaluation and stabilization on 12/04/17. Patient was sent from [facility] in [place], [place] and has previous diagnoses of dementia and Parkinson's disease. She also has a history of alcoholism and has been drinking until ~1 week ago. (Her friends reportedly take her to dinner and buy her alcohol). She has recently been having increasing paranoia, agitation, visual hallucinations and poor sleep. On interview, patient is oriented to self only. She is restless, trying to walk , and very unsteady. She is quite labile/irritable and doesn't want assistance. When asked what happened that she cam here, she responds, "I don't know but it definitely was put in a golf ball." She then begins calling out for Danielle, refusing to answer further interview questions. She is observed to have difficulty with naming impairment and seems to be having frequent VH. An MRI on 11/24/17 showed generalized cerebral atrophy and chronic ischemic microvascular disease. Patient has a family friend as DPOA. DPOA reported to that patient began having VH once put on meds for Parkinson's but these continued after med discontinuation as well. She has also lost 25 lb. recently. Since admission, patient has now started running a temperature and has a cough, but refuses CXR. Consulted MARYANA, who requested that all means be used to get chest x-ray and initiate antibiotic treatment if warranted. Hospital Course This is a general summary of the patient's hospital course. For more details refer to the complete medical record. Hospital course: Plan - 12/06/17: Agree with admission to [facility] unit. Hospitalist service consulted for medical management. Initial labs relatively unremarkable - Hgb 11.5. Monitor periodically throughout admission. Fever - 100.3, with cough and congestion noted - will try and obtain CXR. Patient currently refusing medications, CXR and eating. Will discuss with family their wishes with regard to possible treatment measures for the patient (ie. IVs, PEG placement, labs, etc). Will continue home guaifenesin for cough. Monitor respiratory function closely. Provide safe and supportive environment. Upon discharge, patient's care will be returned to her PCP, Dr. Jackson. Patient requests to be a DNR - documentation on chart. 12/06/2017 Psych- Pt is irritable and appears anxious. Will not increase Seroquel at this time as she has been refusing 12/07/2017 Psych- Poor PO intake and refusing meds. Hesitant to use IM antipsychotics for fear of worsening Parkinsons symptoms. Will discuss with Dr. Silvestre. Possibly consider scheduled Ativan. 12/08/2017 Psych: Will hold Seroquel; discussed care with MARYANA Siddiqi as well as brother Daljit. Will discuss parenteral nutrition with hospitalist. 12/09/17 Psych: Family made decision on 12/08 to proceed with parenteral nutrition. Psych meds other than Zoloft has been held as patient was mostly refusing anyway. Today, continue IV nutrition and monitor response. Patient continued to have very poor PO intake and was not showing improvement despite parenteral nutrition. All psych meds had been held x multiple days by that point so were not believed to be contributing to confusion or lethargy. After hospitalist consult with family, family opted for Hospice care and patient was transferred to facility. Resuscitation Status: Do Not Resuscitate Discharge Plan - Med Rec/Dispo Referrals/Follow Up: Hospice, [facility] [Other] (No follow-up appts. scheduled, due to patient discharging with Hospice services. Mental Health needs will be met by the [employer] Enameling Supervisor.) Additional Instructions: Discharge Diagnosis: Delirium secondary to multiple etiologies, Major neurocognitive disorder, moderate R/O Lewy body Dementia Reasons for Admission: Visual & Auditory hallucinations, Paranoid, and Depression IN CASE OF PSYCHIATRIC EMERGENCY, CONTACT GENERATIONS STAFF AT [phone] ( available 24 hrs daily). Prescriptions: Continue Acetaminophen 650 mg PO Q4H PRN PRN Reason: Cough Mag Hydrox/Aluminum Hyd/Simeth [Alum-Mag Hydroxide-Simeth Liq] 15 ml PO Q4H PRN PRN Reason: Indigestion Sertraline [Zoloft] 100 mg PO DAILY Omeprazole [Prilosec] 20 mg PO DAILY Loperamide HCl [Imodium A-D] 2 mg PO PRN PRN PRN Reason: Diarrhea Discontinued Milk of Magnesia [Mom] 30 ml PO DAILY PRN PRN Reason: Constipation Ibuprofen 200 mg PO Q4H PRN PRN Reason: Pain guaiFENesin [Guaifenesin] 5 ml PO Q4H PRN PRN Reason: Cough Cyanocobalamin (Vitamin B-12) [Vitamin B12] 2,500 mcg PO DAILY Cetirizine [Zyrtec] 10 mg PO DAILY LORazepam [Ativan] 0.5 mg PO Q8H PRN PRN Reason: Agitation Promethazine + Cod Liq [Phenergan + Codeine] 5 - 10 ml PO Q4H PRN PRN Reason: Cough Fluticasone Nasal [place] [Flonase] 1 spray EA NOSTRIL DAILY - Disposition 50 Discharged To Hospice-Home - Dismissal Complete Discharge Instructions are:: Complete
== END 2017-12-10 15:40 | disposition hospice, home (50) | DRG 884 ==
LOC: ED 14:03 → GEN 16:20
PROVIDERS: ADMIT Psychiatry & Neurology Psychiatry; ATTEND Psychiatry & Neurology Psychiatry